=== PATIENT | male | born 1985 | race Caucasian/White ===

== ENCOUNTER 2016-08-16 19:27 | Emergency (ER) | payer MEDICAID, OTHER ==
[~2016-08-16] VITALS: Ht 175.3 cm; Wt 68.5 kg
[~2016-08-16 19:27] MED LIST: BENZ1TAB PO; CHLO50TA6 PO; CLON.5 PO; HALO10 PO; IBUP400T20 PO; QUET1TAB67 PO; SELE2.5%T TOP; TEGR100C CHEW; TRIPLE ABX
[2016-08-16 20:09] VITALS: BP 126/86; PULSE 100; RESP 2; RESP 20; TEMP 97.6; O2SAT 100
[2016-08-16] MEDS ORDERED: THORAZINE PO (20:23)
[2016-08-16] MEDS ORDERED: CARB100C CHEW (20:23)
[2016-08-16] MEDS ORDERED: QUET5TAB PO (20:23)
[2016-08-16] MEDS ORDERED: BENZ2TAB PO (20:23)
[2016-08-16] MEDS ORDERED: HALO10TA PO (20:23)
[2016-08-16] MEDS ORDERED: KETOC2%T TOPICAL (20:23)
[2016-08-16] MEDS ORDERED: [UNRECOGNIZED DRUG - CODE] TOPICAL (20:23)
--- NOTE | 2016-08-16 20:47 | PD ---
HPI Chief Complaint: Musculoskeletal Complaint Time Seen by Provider: 20:46 Travel History International Travel<30 days: No Contact w/Intl Traveler<30days: No Traveled to known affect area: No History of Present Illness HPI 31-year-old male presents to the emergency room with his caregiver with complaint of right foot pain. The patient is intellectually disabled and is unable to communicate, he keeps pointing to his right foot in saying "hurt." He also has history of seizure disorder. The caregiver says that he has had a bruise on the medial aspect of his foot for about a week and today at change of shift he refused to bear weight and walk on the foot. He has been walking normally earlier today and throughout the week. He had been complaining of pain throughout the week but is now refusing to walk on the foot. The caregiver or place of care is unaware of any injury. Denies any nausea, vomiting, fever, chills. They have not given any medications for pain. Allergies to honeybee and lactose intolerance. No other modifying factors or associated signs and symptoms. PFSH Past Medical History Asthma: No Autoimmune Disease: No Blood Disorders: No Anxiety: No Depression: No Cancer: No Cardiovascular Problems: No Chemotherapy: No COPD: No Developmental Delay: Yes Diabetes: No Diminished Hearing: No Endocrine: No Genitourinary: No Immune Disorder: No Musculoskeletal: Yes ([employer]GEN[employer] FEET) Neurologic: Yes (MENTAL RETARDATION) Psychiatric: Yes Respiratory: No Radiation Therapy: No Seizures: Yes (EPILEPSY) Sleep Apnea: No Thyroid Disease: No Past Surgical History AICD: No Joint Replacement: No Pacemaker: No Other Surgery: Yes Social History Alcohol Use: No Tobacco Use: No Substance Use: No Allergies-Medications (Allergen,Severity, Reaction): Coded Allergies: Honey Bee (Verified Allergy, Severe, 08/16/16) Lactose (Verified Allergy, Mild, 08/16/16) Reported Meds & Prescriptions Reported Meds & Active Scripts Active Folding Walker/5" Wheels (Device) 1 Mis Mis 1 Ea .ROUTE DIRECTED Reported Carbamazepine 100 Mg Chew 300 Mg CHEW BID Haloperidol 10 Mg Tab 10 Mg PO BID [Thorazine] 50 Mg PO BID Benztropine (Benztropine Mesylate) 2 Mg Tab 2 Mg PO BID Quetiapine (Quetiapine Fumarate) 50 Mg Tab 50 Mg PO BID Neutrogena T/Gel Topical ([place] Tar Extract) 0.5% Sham 1 Applic TOPICAL EVERY OTHER DAY Nizoral Topical Shampoo (Ketoconazole) 2% Sham 1 Applic TOPICAL EVERY OTHER DAY Apply to scalp Review of Systems Except as stated in HPI: all other systems reviewed are Neg Physical Exam Narrative GENERAL: Well-nourished, well-developed male patient, in no acute distress; intellectually disabled and unable to effectively communicate SKIN: Warm and dry. HEAD: Atraumatic. Normocephalic. EYES: Pupils equal and round. No scleral icterus. No injection or drainage. ENT: Mucosa pink and moist. Airway patent. NECK: Trachea midline. CARDIOVASCULAR: Regular rate. RESPIRATORY: No accessory muscle use. GASTROINTESTINAL: Flat. MUSCULOSKELETAL: Right ankle and foot without erythema or edema; no obvious deformity; there is a small stage IV bruise to the dorsal, medial aspect of the foot. Right lower extremity is supple and non-tense with 2+ pedal pulses and without erythema or edema. No obvious deformities. No clubbing. No cyanosis. No edema. NEUROLOGICAL: Awake and alert. Oriented 3. No obvious cranial nerve deficits. Motor grossly within normal limits. Normal speech. PSYCHIATRIC: Appropriate mood and affect; insight and judgment normal. Data Data Last Documented VS Vital Signs Date Time Temp Pulse Resp B/P Pulse Ox O2 Delivery O2 Flow Rate FiO2 08/16/16 20:09 97.6 100 20 126/86 100 Orders Ankle, Complete ([id number]) (08/16/16 20:47) Foot, Complete ([id number]) (08/16/16 20:47) Ibuprofen Liq (Motrin Liq) (08/16/16 21:00) [facility] Medical Decision Making Medical Screen Exam Complete: Yes Emergency Medical Condition: Yes Medical Record Reviewed: Yes Differential Diagnosis Fracture, dislocation, sprain Narrative Course 31-year-old male with intellectual disability and unable to communicate effectively presents with his caregiver with continued complaint of right foot pain. No known injury. He continues to point at his foot and say "hurt." The right lower extremity supple and nontender to with pupils and without erythema or edema. There are no obvious deformities. Ibuprofen administered in ER. Right ankle x-ray and right foot x-ray ordered. 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 No fracture or acute malalignment of the right foot. Johnson bandage and ankle stirrup splint placed to right ankle. Prescription for walker provider for home. The care center that he is in has a wheelchair for support. Instructed to use ibuprofen or Tylenol as needed for pain. Instructed to follow-up with primary care provider if patient continues to complain of pain greater than 10-14 days. Patient is medically cleared and stable for discharge. Discussed reasons to return to the emergency department. Instructed patient to follow up with primary care provider. Patient agrees with treatment plan. The patients vital signs are stable and the patient is stable for outpatient follow-up and treatment. Patient discharged home, stable and in no acute distress. Diagnosis Primary Impression: Right ankle pain Qualified Code: M25.571 - Right ankle pain, unspecified chronicity Additional Impression: Right foot pain Referrals: Primary Care Physician Patient Instructions: General Instructions Additional Instructions: Tylenol/ibuprofen every 6 hours as directed and as needed for pain Rest, ice, compress, and elevate extremity to decrease pain and inflammation Brace for support Walker for support Avoid aggravating activity; increase activity as tolerated Follow-up with primary care provider Return to the emergency department immediately with worsening symptoms Med/Other Pt SpecificInfo: Prescription(s) given Scripts Folding Walker/5" Wheels 1 Mis Mis #1 Ea .route As Directed Prov:Kylee Maria 08/16/16 Disposition: 01 DISCHARGE HOME Condition: Stable Kylee Maria Aug 16, 2016 20:46
[2016-08-16] MEDS ORDERED: IBUPROFEN SUSP 100 MG/5 ML 120 ML BOTTLE PO ONE (21:00)
--- NOTE | 2016-08-16 21:23 | RADHPO ---
EXAM DATE/TIME: 08/16/2016 21:04 [facility] COMPARISON: No previous studies available for comparison. INDICATIONS : Right foot and ankle pian, unable to ambulate MEDICAL HISTORY : Mental disabilities, club feet SURGICAL HISTORY : Right foot ENCOUNTER: Initial ACUITY: 1 day PAIN SCORE: Non-responsive. LOCATION: Right foot/ankle FINDINGS: Congenitally short and flat talus again noted and there is mild separation anteriorly of the tibiotal ar joint. There are mild/moderate degenerative changes of the ankle joint, subtalar and talonavicular joints, all slightly worse in the interim. No fracture or acute appearing malalignment seen. 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 No fracture or acute a ppearing malalignment. Pablo Gonsalves MD on August 16, 2016 at 21:20 Board Certified Radiologist. This report was verified electronically.
--- NOTE | 2016-08-16 21:25 | RADHPO ---
EXAM DATE/TIME: 08/16/2016 21:08 [facility] COMPARISON: ANKLE RIGHT COMPLETE ([id number]), August 16, 2016, 21:04. ANKLE RIGHT COMPLETE ([id number]), June, 16:20. INDICATIONS : Right foot and ankle pain, unable to ambulate MEDICAL HISTORY : Metal disabilities, club feet SURGICAL HISTORY : Right foot ENCOUNTER: Initial ACUITY: 1 day PAIN SCORE: Non-responsive. 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 Bones of the right midfoot and forefoot are intact and normally aligned. CONCLUSION: Congenital ankle/hindfoot abnormalities. No fracture or acute malalignment of the right foot. Pablo Gonsalves MD on August 16, 2016 at 21:22 Board Certified Radiologist. This report was verified electronically.
[2016-08-16] MEDS ORDERED: MISC-274 (21:35)
== END 2016-08-16 21:45 | disposition home or self-care (01) ==
LOC: PHEFT 19:27
DX: M25.571 Pain in right ankle and joints of right foot (principal); F79 Unspecified intellectual disabilities
CPT/HCPCS: 73610; 73630; 99283; L1906

== ENCOUNTER 2017-10-18 14:45 | Emergency (ER) | payer MEDICAID ==
[~2017-10-18 14:45] MED LIST changes: -BENZ1TAB PO; +BENZ2TAB PO; +CARB100C CHEW; -CHLO50TA6 PO; -CLON.5 PO; -HALO10 PO; +HALO10TA PO; -IBUP400T20 PO; +KETOC2%T TOPICAL; +MISC-274; -QUET1TAB67 PO; +QUET5TAB PO; -SELE2.5%T TOP; -TEGR100C CHEW; +THORAZINE PO; -TRIPLE ABX; +[UNRECOGNIZED DRUG - CODE] TOPICAL
[2017-10-18 14:48] VITALS: BP 149/84; PULSE 107; RESP 20; TEMP 98.3; O2SAT 98
--- NOTE | 2017-10-18 14:58 | PD ---
HPI Chief Complaint: Fall Time Seen by Provider: 14:55 Travel History International Travel<30 days: No Contact w/Intl Traveler<30days: No Traveled to known affect area: No History of Present Illness HPI This 32-year-old male is brought by paramedics. He resides at a care home. The worker at the home observed him choking on a peanut butter and jelly sandwich. She did the Heimlich maneuver and cleaned out his mouth. His breathing has improved. He tried to get away from her and while trying to get away he fell and hit the side of his head. She says he was momentarily stunned. He has a history of developmental delay and epilepsy. The worker is here now and says that he is at his baseline. PFSH Past Medical History Asthma: No Autoimmune Disease: No Blood Disorders: No Anxiety: No Depression: No Cancer: No Cardiovascular Problems: No Chemotherapy: No COPD: No Developmental Delay: Yes Diabetes: No Diminished Hearing: No Endocrine: No Genitourinary: No Immune Disorder: No Musculoskeletal: Yes ([employer] FEET) Neurologic: Yes (MENTAL RETARDATION) Psychiatric: Yes Respiratory: No Radiation Therapy: No Seizures: Yes (EPILEPSY) Sleep Apnea: No Thyroid Disease: No Past Surgical History AICD: No Joint Replacement: No Pacemaker: No Other Surgery: Yes Social History Alcohol Use: No Tobacco Use: No Substance Use: No Allergies-Medications (Allergen,Severity, Reaction): Coded Allergies: bee venom protein (honey bee) (Unverified Allergy, Severe, 10/18/17) lactose (Unverified Allergy, Mild, 10/18/17) Reported Meds & Prescriptions Reported Meds & Active Scripts Active Reported Clonazepam 0.5 Mg Tab 0.5 Mg PO HS Benztropine (Benztropine Mesylate) 0.5 Mg Tab 2 Mg PO BID Carbamazepine 100 Mg Chew 300 Mg CHEW BID Haloperidol 10 Mg Tab 10 Mg PO BID [Thorazine] 50 Mg PO BID Quetiapine (Quetiapine Fumarate) 50 Mg Tab 50 Mg PO BID Neutrogena T/Gel Topical ([place] Tar Extract) 0.5% Sham 1 Applic TOPICAL EVERY OTHER DAY Nizoral Topical Shampoo (Ketoconazole) 2% Sham 1 Applic TOPICAL EVERY OTHER DAY Apply to scalp Review of Systems ROS Limitations: Poor Historian Physical Exam Narrative GENERAL: Well-developed male SKIN: Focused skin assessment warm/dry. HEAD: Atraumatic. Normocephalic. There is ecchymosis lateral to the left eye. EYES: Pupils equal and round. No scleral icterus. No injection or drainage. ENT: No nasal bleeding or discharge. Mucous membranes pink and moist. NECK: Trachea midline. No JVD. CARDIOVASCULAR: Regular rate and rhythm. No murmur appreciated. RESPIRATORY: No accessory muscle use. Clear to auscultation. Breath sounds equal bilaterally. GASTROINTESTINAL: Abdomen soft, non-tender, nondistended. Hepatic and splenic margins not palpable. MUSCULOSKELETAL: No obvious deformities. No clubbing. No cyanosis. No edema. NEUROLOGICAL: Awake and alert. He does not follow commands. He appears to move all extremities. He has a splint on his left leg. Speech is limited PSYCHIATRIC: Data Data Last Documented VS Vital Signs Date Time Temp Pulse Resp B/P (MAP) Pulse Ox O2 Delivery O2 Flow Rate FiO2 10/18/17 14:48 98.3 107 20 149/84 (105) 98 Orders Orders Chest, Single Ap (10/18/17 14:55) Ct Brain W/O Iv Contrast(Rout) (10/18/17 14:55) [facility] Medical Decision Making Medical Screen Exam Complete: Yes Emergency Medical Condition: Yes Medical Record Reviewed: Yes Differential Diagnosis Differential includes choking episode, contusion head, subdural, skull fracture Narrative Course Clinically the patient appears stable and there is no evidence of airway compromise and his pharynx is unremarkable. CT scan of the head is negative for traumatic injury. Chest x-ray is negative Diagnosis Primary Impression: Contusion of head Additional Impression: Choking episode Disposition: 65 DISC TO [facility] Condition: Stable Ervin Ramon MD Oct 18, 2017 14:58
[2017-10-18] MEDS ORDERED: CLON0.5T PO (15:05)
[2017-10-18] MEDS ORDERED: BENZ0.5T PO (15:05)
--- NOTE | 2017-10-18 15:30 | RADRPT ---
EXAM DATE/TIME: 10/18/2017 15:05 [facility] COMPARISON: No previous studies available for comparison. INDICATIONS : Fell and hit head. RADIATION DOSE: 53.83 CTDIvol (mGy) MEDICAL HISTORY : None SURGICAL HISTORY : None. ENCOUNTER: Initial ACUITY: 1 day PAIN SCALE: 2/10 LOCATION: Left cranial TECHNIQUE: Multiple contiguous axial images were obtained of the head. Using automated exposure control and adj ustment of the mA and/or kV according to patient size, radiation dose was kept as low as reasonably a chievable to obtain optimal diagnostic quality images. DICOM format image data is available electro nically for review and comparison. FINDINGS: CEREBRUM: The ventricles are normal for age. No evidence of midline shift, mass lesion, hemorrhage or acute in farction. No extra-axial fluid collections are seen. POSTERIOR FOSSA: The cerebellum and brainstem are intact. The 4th ventricle is midline. The cerebellopontine angle i s unremarkable. EXTRACRANIAL: The visualized portion of the orbits is intact. SKULL: The calvaria is intact. No evidence of skull fracture. CONCLUSION: Normal examination for a patient of this age. Maximilian Seay MD on October 18, 2017 at 15:28 Board Certified Radiologist. This report was verified electronically.
--- NOTE | 2017-10-18 15:51 | RADRPT ---
EXAM DATE/TIME: 10/18/2017 15:29 [facility] COMPARISON: No previous studies available for comparison. INDICATIONS : Cough. MEDICAL HISTORY : Seizures. Metal disabilities. SURGICAL HISTORY : None. ENCOUNTER: Initial ACUITY: 1 day PAIN SCORE: Non-responsive. LOCATION: Bilateral chest FINDINGS: A single view of the chest demonstrates the lungs to be symmetrically aerated without evidence of mas s, infiltrate or effusion. The cardiomediastinal contours are unremarkable. Osseous structures are intact. CONCLUSION: Normal examination for a patient of this age. Maximilian Seay MD on October 18, 2017 at 15:50 Board Certified Radiologist. This report was verified electronically.
== END 2017-10-18 16:21 ==
LOC: PHED 14:45
DX: S00.93XA Contusion of unspecified part of head, initial encounter (principal); W19.XXXA Unspecified fall, initial encounter; R09.89 Other specified symptoms and signs involving the circulatory and respiratory systems; T17.928A Food in respiratory tract, part unspecified causing other injury, initial encounter; G40.909 Epilepsy, unspecified, not intractable, without status epilepticus; F79 Unspecified intellectual disabilities
CPT/HCPCS: 70450; 71045

== ENCOUNTER 2018-07-06 12:46 | Inpatient (IN) ==
[2018-07-06] MEDS ORDERED: Midazolam Inj 5 MG/ML 5 ML Vial IV.PUSH ONE (12:48)
[2018-07-06] MEDS ORDERED: Midazolam 100 MG/100 ML Inj 100 MG/100 ML BAG IV.CONT PRN (12:49)
[2018-07-06 13:06] LABS: Baso # (Auto) 0.1 th/mm3 (0.0-0.2); Baso % (Auto) 1.3 % (0.0-2.0); Eos # (Auto) 0.1 th/mm3 (0.0-0.4); Eos % (Auto) 0.9 % (0.0-4.0); Hemoglobin 13.6 gm/dL (13.0-17.0); Lymph # (Auto) 3.1 th/mm3 (1.0-4.8); Lymph % (Auto) 40.7 % (9.0-44.0); Mean Corpuscular HGB Conc 33.2 % (32.0-36.0); Mean Corpuscular Hemoglobin 30.8 pg (27.0-34.0); Mean Corpuscular Volume 92.8 fL (80.0-100.0); Mean Platelet Volume 7.2 fL (7.0-11.0); Mono # (Auto) 0.3 th/mm3 (0.0-0.9); Mono % (Auto) 4.2 % (0.0-8.0); Neut % (Auto) 52.9 % (16.0-70.0); Platelet Count 257 th/mm3 (150-450); Red Blood Count 4.43 mil/mm3 (4.50-5.90); Red Cell Distribution Width 12.6 % (11.6-17.2); White Blood Count 7.6 th/mm3 (4.0-11.0)
[2018-07-06 13:14] LABS: Chloride 107 meq/L (98-107); Potassium 3.7 meq/L (3.5-5.1); Sodium 142 meq/L (136-145)
[2018-07-06 13:17] LABS: Activated Partial Thrombo Time 24.3 sec (23.4-31.7); Calcium 7.7 mg/dL (8.5-10.1); INR 1.1 Ratio
--- NOTE | 2018-07-06 13:17 | XR ---
EXAM DATE: 07/06/2018 1:13 PM EST AGE/SEX: 32 years / Male INDICATIONS: Post intubation. CLINICAL DATA: This is the patient's initial encounter. Patient reports that signs and symptoms have been present for 1 day and indicates a pain score of Nonresponsive. MEDICAL/SURGICAL HISTORY: Non-responsive. Non-responsive. COMPARISON: [facility], CHEST SINGLE AP, 10/18/2017. . FINDINGS: The patient is intubated with the tip of ET tube 5 cm from the leonie in good position. The heart siz e is normal. The lungs are clear. CONCLUSION: ET tube in good position. Electronically signed by: Pablo Ramos MD 07/06/2018 1:15 PM EST
[2018-07-06 13:18] LABS: Albumin 3.4 g/dL (3.4-5.0); Anion Gap 11 meq/L (5-15); Blood Urea Nitrogen 14 mg/dL (7-18); Glucose,Random 125 mg/dL (74-106)
[2018-07-06 13:20] LABS: ABG Base Excess -1.9 mmol/L (-2-2); ABG PCO2 47 mmHg (38-42); ABG PO2 337 mmHg (61-120)
[2018-07-06 13:21] LABS: Alanine Aminotransferase 95 U/L (12-78); Aspartate Aminotransferase 99 U/L (15-37); Glomerular Filtration Rate Greater Than 89 mL/min (>89)
[2018-07-06 13:23] LABS: Total Protein 6.9 g/dL (6.4-8.2)
[2018-07-06 13:24] LABS: Alkaline Phosphatase 148 U/L (45-117)
[2018-07-06 13:25] LABS: Creatine Kinase 72 U/L (39-308)
--- NOTE | 2018-07-06 13:31 | ED ---
HPI General Chief Complaint: Cardiac Arrest/CPR Stated Complaint: airway obstruction /evac Time Seen by Provider: 07/06/18 12:48 Source: EMS Mode of arrival: EMS Limitations: altered mental status History of Present Illness HPI narrative: 32-year-old male was brought in by EMS after patient was found choking on food and became unresponsive. Patient resides at a residential. Patient was eating peanut butter and jelly sandwich this afternoon. Patient started choking on food. Helmet Hat Sweatband Puncher gave patient Heimlich maneuver. Patient became unresponsive. Chest compression was started at the scene. EMS was called. EMS response within minutes. Patient was found unresponsive with pulse. A large amount of food was found in the mouth. The foot was removed with Deshawn forceps and fingers. Patient was intubated and transported to the ED for evaluation. Upon arrival, patient unresponsive, breathing about 2 breaths/min, with pulses. Patient has history of developmental delay and seizure. Patient is on lorazepam, benztropine, carbamazepine, Haldol, Thorazine , Seroquel. MD complaint: Reports found unresponsive and stopped breathing Onset (ago): minute(s) Timing confirmed by: caregiver Place: other (long-term) Bystander CPR performed: Yes AED applied by bystander/applied computer science professor: No Shock advised: No Initial findings in the field: unresponsive, no respirations, good pulses and sinus rhythm Associated injuries: No Treatments prior to arrival: Reports intubation and chest compressions Related Data Allergies Allergy/AdvReac Type Severity Reaction Status Date / Time bee venom protein (honey bee) Allergy Severe Unverified 10/18/17 14:56 lactose Allergy Mild Unverified 10/18/17 14:56 Review of Systems ROS: all other systems reviewed are negative PMFSH History History Provided By: Social Services Counselor / EMT Social History Social History Recent Travel in [place] within the Last 8 Weeks: No Recent Out of Country Travel within the Last 8 Weeks: No Exam Narrative Exam Narrative: GENERAL: Well-nourished, well-developed patient. SKIN: Focused skin assessment warm/dry. HEAD: Normocephalic. EYES: No scleral icterus. No injection or drainage. Pupils 4 mm equal reactive. NECK: Supple, trachea midline. No JVD or lymphadenopathy. CARDIOVASCULAR: Regular rate and rhythm without murmurs, gallops, or rubs. RESPIRATORY: Breath sounds equal bilaterally on bagging. Patient is intubated. Patient has spontaneous respiration about 2/min. GASTROINTESTINAL: Abdomen soft, nondistended. MUSCULOSKELETAL: No cyanosis, or edema. BACK: without obvious deformity. No CVA tenderness. Neurologic exam: Patient is intubated. Course Initial Documented Vital Signs Pulse Rate 82 07/06/18 12:48 Respiratory Rate 16 07/06/18 12:48 Blood Pressure 158/101 H 07/06/18 12:48 Last Documented Vital Signs Pulse Rate 88 07/06/18 15:15 Respiratory Rate 16 07/06/18 14:32 Blood Pressure 122/83 07/06/18 15:15 Pulse Oximetry 97 07/06/18 14:32 Critical Care Time Critical Care Time: Yes Total Critical Care Time: 60 Attestation: Aggregate critical care time was 60 minutes. Time to perform other separately billable procedures was not included in the critical care time. My time did not include minutes spent treating any other patients simultaneously or on activities that did not directly contribute to the patient's treatment. The services I provided to this patient were to treat and/or prevent clinically significant deterioration that could result in: I provided critical care services requiring my management, as noted below: Chart data review, documentation time, medication orders and management, vital sign assessments/reviewing monitor data, ordering and reviewing lab tests, ordering and interpreting/reviewing x-rays and diagnostic studies, care of the patient and discussion of the patient with the admitting physicians. Medical Decision Making MDM Narrative Medical decision making narrative: 32-year-old male was choking on food and became unresponsive. Patient lives in a residential. Chest compressions started prior to EMS arrival. Patient was found unresponsive with pulses. Large amount of food was dislodged from the mouth. Patient was intubated prior to arrival. Patient was put on ventilator. Versed drip for sedation. Medical Screen Exam Complete: Yes Emergency Medical Condition: Yes Differential Diagnosis Differential Diagnosis: Differential diagnosis including respiratory failure, food aspiration, aspiration pneumonia, cardiac arrest. Lab Data Lab results reviewed: Yes I reviewed the patient's lab results. Result diagrams: 07/06/18 12:57 07/06/18 12:57 Lab Results 07/06/18 07/06/18 07/06/18 Range/Units 12:57 12:57 12:57 CBC w Diff Auto diff final WBC 7.6 (4.0-11.0) th/mm3 RBC 4.43 L (4.50-5.90) mil/mm3 Hgb 13.6 (13.0-17.0) gm/dL Hct 41.0 (39.0-51.0) % MCV 92.8 (80.0-100.0) fL MCH 30.8 (27.0-34.0) pg MCHC 33.2 (32.0-36.0) % RDW 12.6 (11.6-17.2) % Plt Count 257 (150-450) th/mm3 MPV 7.2 (7.0-11.0) fL Neut % (Auto) 52.9 (16.0-70.0) % Lymph % (Auto) 40.7 (9.0-44.0) % [place] % (Auto) 4.2 (0.0-8.0) % Eos % (Auto) 0.9 (0.0-4.0) % Baso % (Auto) 1.3 (0.0-2.0) % Neut # (Auto) 4.0 (1.8-7.7) th/mm3 Lymph # (Auto) 3.1 (1.0-4.8) th/mm3 [place] # (Auto) 0.3 (0.0-0.9) th/mm3 Eos # (Auto) 0.1 (0.0-0.4) th/mm3 Baso # (Auto) 0.1 (0.0-0.2) th/mm3 WBC Differential . Differential Comment . PT 11.0 (9.8-11.6) sec INR 1.1 Ratio APTT 24.3 (23.4-31.7) sec Puncture Site Patient Temperature O2 Saturation (90-100) % ABG pH (7.380-7.420) ABG pCO2 (38-42) mmHg ABG pO2 (61-120) mmHg ABG HCO3 (22-26) mmol/L ABG O2 Content (12.0-20.0) Vol % ABG Base Excess (-2-2) mmol/L ABG Methemoglobin (0-2) % Bud Test Hemoglobin (12.0-16.0) G/DL Carboxyhemoglobin (0-4) % O2 Delivery Device Vent Setting Inspired O2 % Critical Value Sodium (136-145) meq/L Potassium (3.5-5.1) meq/L Chloride (98-107) meq/L Carbon Dioxide (21.0-32.0) meq/L Anion Gap (5-15) meq/L BUN (7-18) mg/dL Creatinine (0.60-1.30) mg/dL Estimated GFR (>89) mL/min POC Glucose (68-110) mg/dl Random Glucose (74-106) mg/dL Calcium (8.5-10.1) mg/dL Total Bilirubin (0.2-1.0) mg/dL AST (15-37) U/L ALT (12-78) U/L Alkaline Phosphatase (45-117) U/L Total Creatine Kinase (39-308) U/L Troponin I (0.02-0.05) ng/mL Total Protein (6.4-8.2) g/dL Albumin (3.4-5.0) g/dL TSH 2.020 (0.358-3.740) uIU/mL Ur Collection Type Urine Color (Yellw/Straw) Urine Clarity (Clear) Urine pH (5.0-8.5) Ur Specific [place] (1.002-1.035) Urine Protein (Neg-Trace) mg/dL Urine Glucose (UA) (Negative) mg/dL Urine Ketones (Negative) mg/dL Urine Occult Blood (Negative) Urine Nitrate (Negative) Urine Bilirubin (Negative) Urine Urobilinogen (Less than 2) mg/dL Ur Leukocyte Esterase (Negative) Urine WBC (0-5) /hpf Urine Bacteria (None) /hpf Micro UA Comment Ur Microscopic Review Urine Culture Comments Carbamazepine (4.0-12.0) mcg/mL 07/06/18 07/06/18 07/06/18 Range/Units 12:57 12:57 13:12 CBC w Diff WBC (4.0-11.0) th/mm3 RBC (4.50-5.90) mil/mm3 Hgb (13.0-17.0) gm/dL Hct (39.0-51.0) % MCV (80.0-100.0) fL MCH (27.0-34.0) pg MCHC (32.0-36.0) % RDW (11.6-17.2) % Plt Count (150-450) th/mm3 MPV (7.0-11.0) fL Neut % (Auto) (16.0-70.0) % Lymph % (Auto) (9.0-44.0) % [place] % (Auto) (0.0-8.0) % Eos % (Auto) (0.0-4.0) % Baso % (Auto) (0.0-2.0) % Neut # (Auto) (1.8-7.7) th/mm3 Lymph # (Auto) (1.0-4.8) th/mm3 [place] # (Auto) (0.0-0.9) th/mm3 Eos # (Auto) (0.0-0.4) th/mm3 Baso # (Auto) (0.0-0.2) th/mm3 WBC Differential Differential Comment PT (9.8-11.6) sec INR Ratio APTT (23.4-31.7) sec Puncture Site Right radial Patient Temperature 98.6 O2 Saturation 97 (90-100) % ABG pH 7.32 L (7.380-7.420) ABG pCO2 47 H (38-42) mmHg ABG pO2 337 H (61-120) mmHg ABG HCO3 23 (22-26) mmol/L ABG O2 Content 19.2 (12.0-20.0) Vol % ABG Base Excess -1.9 (-2-2) mmol/L ABG Methemoglobin 1.6 (0-2) % Bud Test Present Hemoglobin 13.5 (12.0-16.0) G/DL Carboxyhemoglobin 1.1 (0-4) % O2 Delivery Device Ventilator Vent Setting 14/450/peep5 Inspired O2 100 % Critical Value No Sodium 142 (136-145) meq/L Potassium 3.7 (3.5-5.1) meq/L Chloride 107 (98-107) meq/L Carbon Dioxide 24.0 (21.0-32.0) meq/L Anion Gap 11 (5-15) meq/L BUN 14 (7-18) mg/dL Creatinine 0.91 (0.60-1.30) mg/dL Estimated GFR Greater than 89 (>89) mL/min POC Glucose (68-110) mg/dl Random Glucose 125 H (74-106) mg/dL Calcium 7.7 L (8.5-10.1) mg/dL Total Bilirubin 0.3 (0.2-1.0) mg/dL AST 99 H (15-37) U/L ALT 95 H (12-78) U/L Alkaline Phosphatase 148 H (45-117) U/L Total Creatine Kinase 72 (39-308) U/L Troponin I Less than 0.02 L (0.02-0.05) ng/mL Total Protein 6.9 (6.4-8.2) g/dL Albumin 3.4 (3.4-5.0) g/dL TSH (0.358-3.740) uIU/mL Ur Collection Type Urine Color (Yellw/Straw) Urine Clarity (Clear) Urine pH (5.0-8.5) Ur Specific [place] (1.002-1.035) Urine Protein (Neg-Trace) mg/dL Urine Glucose (UA) (Negative) mg/dL Urine Ketones (Negative) mg/dL Urine Occult Blood (Negative) Urine Nitrate (Negative) Urine Bilirubin (Negative) Urine Urobilinogen (Less than 2) mg/dL Ur Leukocyte Esterase (Negative) Urine WBC (0-5) /hpf Urine Bacteria (None) /hpf Micro UA Comment Ur Microscopic Review Urine Culture Comments Carbamazepine 7.9 (4.0-12.0) mcg/mL 07/06/18 07/06/18 Range/Units 13:22 14:25 CBC w Diff WBC (4.0-11.0) th/mm3 RBC (4.50-5.90) mil/mm3 Hgb (13.0-17.0) gm/dL Hct (39.0-51.0) % MCV (80.0-100.0) fL MCH (27.0-34.0) pg MCHC (32.0-36.0) % RDW (11.6-17.2) % Plt Count (150-450) th/mm3 MPV (7.0-11.0) fL Neut % (Auto) (16.0-70.0) % Lymph % (Auto) (9.0-44.0) % [place] % (Auto) (0.0-8.0) % Eos % (Auto) (0.0-4.0) % Baso % (Auto) (0.0-2.0) % Neut # (Auto) (1.8-7.7) th/mm3 Lymph # (Auto) (1.0-4.8) th/mm3 [place] # (Auto) (0.0-0.9) th/mm3 Eos # (Auto) (0.0-0.4) th/mm3 Baso # (Auto) (0.0-0.2) th/mm3 WBC Differential Differential Comment PT (9.8-11.6) sec INR Ratio APTT (23.4-31.7) sec Puncture Site Patient Temperature O2 Saturation (90-100) % ABG pH (7.380-7.420) ABG pCO2 (38-42) mmHg ABG pO2 (61-120) mmHg ABG HCO3 (22-26) mmol/L ABG O2 Content (12.0-20.0) Vol % ABG Base Excess (-2-2) mmol/L ABG Methemoglobin (0-2) % Bud Test Hemoglobin (12.0-16.0) G/DL Carboxyhemoglobin (0-4) % O2 Delivery Device Vent Setting Inspired O2 % Critical Value Sodium (136-145) meq/L Potassium (3.5-5.1) meq/L Chloride (98-107) meq/L Carbon Dioxide (21.0-32.0) meq/L Anion Gap (5-15) meq/L BUN (7-18) mg/dL Creatinine (0.60-1.30) mg/dL Estimated GFR (>89) mL/min POC Glucose 252 H (68-110) mg/dl Random Glucose (74-106) mg/dL Calcium (8.5-10.1) mg/dL Total Bilirubin (0.2-1.0) mg/dL AST (15-37) U/L ALT (12-78) U/L Alkaline Phosphatase (45-117) U/L Total Creatine Kinase (39-308) U/L Troponin I (0.02-0.05) ng/mL Total Protein (6.4-8.2) g/dL Albumin (3.4-5.0) g/dL TSH (0.358-3.740) uIU/mL Ur Collection Type Cath Urine Color Yellow (Yellw/Straw) Urine Clarity Slightly cloudy (Clear) Urine pH 6.0 (5.0-8.5) Ur Specific [place] 1.025 (1.002-1.035) Urine Protein Negative (Neg-Trace) mg/dL Urine Glucose (UA) Negative (Negative) mg/dL Urine Ketones Negative (Negative) mg/dL Urine Occult Blood Trace (Negative) Urine Nitrate Negative (Negative) Urine Bilirubin Negative (Negative) Urine Urobilinogen 0.2 (Less than 2) mg/dL Ur Leukocyte Esterase Negative (Negative) Urine WBC 0-5 (0-5) /hpf Urine Bacteria Many H (None) /hpf Micro UA Comment Cath-culture ind Ur Microscopic Review Microscopic reviewed Urine Culture Comments Cath-cult indicated Carbamazepine (4.0-12.0) mcg/mL Imaging Data Attestation: I personally reviewed and interpreted this imaging study as follows : Radiologist's impression: Chest X-Ray 07/06/18 12:50 CONCLUSION: ET tube in good position. Head CT 07/06/18 12:50 CONCLUSION: Negative noncontrast head CT. . Discharge Plan Discharge Disposition Patient Disposition: 30 Still Patient Discharge Details Diagnosis: Acute respiratory failure, Aspiration into airway Physicians Team ED Provider: Daniel Singh Primary Care Provider: Krishan Lane Status ED Status: With Doctor
--- NOTE | 2018-07-06 13:49 | CT ---
EXAM DATE: 07/06/2018 1:46 PM EST AGE/SEX: 32 years / Male INDICATIONS: Altered mental status. CLINICAL DATA: This is the patient's initial encounter. Patient reports that signs and symptoms have been present for 1 day and indicates a pain score of Nonresponsive. MEDICAL/SURGICAL HISTORY: None. None. RADIATION DOSE: 69.71 CTDI (mGy) COMPARISON: [facility], CT BRAIN W/O CONTRAST, 10/18/2017. . TECHNIQUE: CT of the head without contrast. Using automated exposure control and adjustment of the mA and/or kV according to patient size, radiation dose was kept as low as reasonably achievable to ob tain optimal diagnostic quality images. DICOM format image data is available electronically for revi ew and comparison. FINDINGS: Cerebrum: The ventricles are normal for age. No evidence of midline shift, mass lesion, hemorrhage or acute infarction. No extraaxial fluid collections are seen. Posterior Fossa: The cerebellum and brainstem are intact. The 4th ventricle is midline. The cerebe llopontine angle is unremarkable. Extracranial: The visualized portion of the orbits is intact. Skull: The calvaria is intact. No evidence of skull fracture. CONCLUSION: Negative noncontrast head CT. . Electronically signed by: Pablo Ramos MD 07/06/2018 1:48 PM EST
[2018-07-06] MEDS: Sod Chloride 0.9% Inj 1,000 ML IV.CONT SCH ×2 (14:25→22:21)
[2018-07-06 14:37] LABS: Bilirubin,Urine Negative (Negative); Clarity,Urine Slightly Cloudy (Clear); Color,Urine Yellow (Yellw/Straw); Glucose,Urine (UA) Negative (Negative); Leukocyte Esterase,Urine Negative (Negative); Nitrite,Urine Negative (Negative); Specific Gravity,Urine 1.025 (1.002-1.035); Urobilinogen,Urine 0.2 mg/dL (Less than 2)
[2018-07-06 14:46] LABS: Bacteria,Urine Many /hpf; WBC,Urine 0-5 /hpf (0-5)
[2018-07-06] MEDS ORDERED: Magnesium Oxide 400 MG Tablet PO PRN (16:19)
[2018-07-06] MEDS ORDERED: Bisacodyl 10 MG Supp RECTAL PRN (16:19)
[2018-07-06] MEDS ORDERED: Potassium Chlor 40 mEq Premix 40 MEQ/100 ML PIGGYBACK IV.SIG PRN (16:19)
[2018-07-06] MEDS ORDERED: Magnesium Sulfate Inj 2 GM in Sodium Chlor 0.9% Inj 96 ML IV.SIG PRN (16:19)
[2018-07-06] MEDS ORDERED: Potassium Phosphate 500 MG Soluble Tablet PO PRN (16:19)
[2018-07-06] MEDS ORDERED: Magnesium Sulfate Inj 4 GM in Sodium Chlor 0.9% Inj 92 ML IV.SIG PRN (16:19)
[2018-07-06] MEDS ORDERED: Sodium Phosphate Inj 30 MMOL in Sodium Chlor 0.9% Inj 250 ML IV.SIG PRN (16:19)
[2018-07-06] MEDS ORDERED: Potassium Chlor 20 mEq Premix 20 MEQ/100 ML PIGGYBACK IV.SIG PRN (16:19)
[2018-07-06] MEDS ORDERED: Propofol Inj 500 MG/50 ML Vial ONE (16:29)
--- NOTE | 2018-07-06 17:12 | XR ---
EXAM DATE: 07/06/2018 5:08 PM EST AGE/SEX: 32 years / Male INDICATIONS: Evaluate for NG tube placement. CLINICAL DATA: This is the patient's initial encounter. Patient reports that signs and symptoms have been present for 1 day and indicates a pain score of Nonresponsive. MEDICAL/SURGICAL HISTORY: Non-responsive. Non-responsive. COMPARISON: No prior exams available for comparison. FINDINGS: Examination of the abdomen demonstrates a normal bowel gas pattern. Moderate stool seen in the visua lized colon. No free air is identified. No organomegaly is evident. Osseous structures are intact. Nasogastric tube tip is at the gastric outlet. CONCLUSION: Nasogastric tube tip is at the distal stomach. Electronically signed by: Pablo Gonsalves MD 07/06/2018 5:10 PM EST
[2018-07-06 17:40] LABS: ABG Base Excess -0.6 mmol/L (-2-2); ABG PCO2 43 mmHg (38-42); ABG PO2 122 mmHg (61-120)
[2018-07-06] MEDS: Enoxaparin Inj 30 MG/0.3 ML Syringe SQ SCH ×2 (18:09→18:16)
--- NOTE | 2018-07-06 19:28 | P.HPCC ---
History of Present Illness Service: Critical care medicine Primary Care Physician: Krishan Lane MD Chief Complaint: Respiratory arrest History of Present Illness: This is a 32-year-old male delay living in a [facility]. The patient was eating a peanut butter and jelly sandwich and had a choking episode. A Heimlich maneuver was performed but was unsuccessful , the patient was noted to be slumped over/became limp. EMS was contacted of note the patient had a pulse per report throughout the entire episode, but CPR was initiated by 1 of the [facility] attendants. Upon EMS arrival which per report took approximately 10 minutes food bolus of the peanut butter and jelly sandwich was noted in the posterior pharynx which was removed by forceps and the patient was intubated at that time and transported to [facility] emergency department. The patient's medical history is significant for developmental delay, and a seizure disorder. Per report obtained from entry of [facility] medical records the patient is noted to be on benztropine, lorazepam carbamazepine, Haldol, Thorazine and Seroquel. Multiple attempts being made to obtain patient's medication list for reconciliation. Upon admission to the ICU , a family member was notified and at bedside and the patient appeared on sedation vacation to squeeze the family members hand up on request/command. - Diagnosis (1) Acute respiratory failure (2) Aspiration into airway (3) Seizure Inpatient Certification: I certify that the inpatient services were ordered in accordance with Medicare regulations governing the order. This includes certification that hospital inpatient services are reasonable and necessary and in the case of services not specified as inpatient-only under 42 CFR 419.22(n), that they are appropriately provided as inpatient services in accordance to with the 2-midnight benchmark under 43 CFR 412.3(e) Estimated Total Length of Stay (Days): 5 Plans for Post Hospital Care: detention Review of Systems All other systems reviewed negative except as stated in HPI, unobtainable due to endotracheal tube PMFSH - History History Provided By: Web Marketing Coordinator / EMT - Medical History Medical History: Medical History (Last Updated 07/06/18 @ 15:33 by Delia Moses RN) Epilepsy History of developmental delay - Tobacco History Second Hand Smoke Exposure: No Tobacco Use In Past 30 Days: No Smoking Status: Never smoker - Alcohol History How Often Do You Have a Drink Containing Alcohol: Never - Substance Use History Substance History: No History of Abuse - Travel History Recent Travel in the [place] Within the Last 8 Weeks: No Recent Travel Out of the Country Within the Last 8 Weeks: No - Immunization History Tetanus Immunization: Unsure Medications and Allergies Active Medications: Active Medications Al Hydroxide/Mg Hydroxide (Milk Of Esvin Liq) 30 ml PO Q12H PRN PRN Reason: Mild Constipation Albuterol (Duoneb Neb (Prn)) 1 ampul NEB Q2HR NEB PRN PRN Reason: WHEEZING Bisacodyl (Dulcolax Supp) 10 mg RECTAL DAILY PRN PRN Reason: SEVERE CONSITIPATION Chlorhexidine Gluconate (Peridex 0.12% Oral Kit) 15 ml OROPHARYNG BID@0800, 2000 VIK Chlorhexidine Gluconate (Chlorhexidine 2% Cloth) 3 pack TOPICAL DAILY@0400 PRN PRN Reason: Extra cloth needed Stop: 07/12/18 03:59 Enoxaparin Sodium (Lovenox Inj) 30 mg SQ Q24H VIK Last Admin: 07/06/18 18:16 Dose: 30 mg Famotidine (Pepcid) 20 mg PO BID VIK Famotidine (Pepcid Pf Inj) 20 mg IV.PUSH Q12HR VIK Sodium Chloride (Ns Inj) 1,000 mls @ 125 mls/hr IV.CONT .Q8H VIK Last Infusion: 07/06/18 16:40 Dose: Infused Magnesium Sulfate 4 gm/ Sodium (Chloride) 100 mls @ 50 mls/hr IV.SIG UNSCH PRN PRN Reason: For Magnesium 0.9 - 1.1 mg/dL Magnesium Sulfate 2 gm/ Sodium (Chloride) 100 mls @ 50 mls/hr IV.SIG UNSCH PRN PRN Reason: For Magnesium 1.2 - 1.6 mg/dL Potassium Chloride (Kcl 40 Meq Premix Inj) 40 meq in 100 mls @ 25 mls/hr IV.SIG Q2H PRN PRN Reason: For Potassium 2.8 - 3.2 mEq/L Potassium Chloride (Kcl 20 Meq Premix Inj) 20 meq in 100 mls @ 50 mls/hr IV.SIG Q2H PRN PRN Reason: For Potassium 3.3 - 3.5 mEq/L Sodium Phosphate 30 mmol/ (Sodium Chloride) 260 mls @ 42 mls/hr IV.SIG UNSCH PRN PRN Reason: For Phosphorus < 2.5 mg/dL Lactulose (Lactulose Liq) 30 ml PO DAILY PRN PRN Reason: SEVERE CONSITIPATION Lorazepam (Ativan Inj) 2 mg IV.PUSH Q2H PRN PRN Reason: SEIZURES Magnesium Oxide (Mag-Ox) 800 mg PO UNSCH PRN PRN Reason: For Magnesium 1.2 - 1.6 mg/dL Miscellaneous Medication () 1 each OROPHARYNG 0000,0400,1200,1600 VIK Ondansetron HCl (Zofran Inj) 4 mg IV.PUSH Q6H PRN PRN Reason: NAUSEA OR VOMITING Potassium Phosphate (K-Phos Original) 2,000 mg PO Q4H PRN PRN Reason: Phosphorus Less Than 2.5 mg/dL Senna/Docusate Sodium ([place]-Colace) 1 tab PO BID VIK Sennosides (Senokot) 17.2 mg PO Q12H PRN PRN Reason: Moderate Constipation Sodium Chloride (Ns Flush) 2 ml IV.FLUSH BID VIK Sodium Chloride (Ns Flush) 2 ml IV.FLUSH PRN PRN PRN Reason: FLUSH AFTER USING IV ACCESS Allergies Allergy/AdvReac Type Severity Reaction Status Date / Time bee venom protein (honey bee) Allergy Severe Unverified 10/18/17 14:56 lactose Allergy Mild Unverified 10/18/17 14:56 Home Medications Medication Instructions Recorded Confirmed Type Unable to Obtain Home Meds 07/06/18 07/06/18 History Results - Labs CBC & Chem 7: 07/06/18 12:57 07/06/18 12:57 Labs: Short CBC 07/06/18 Range/Units 12:57 WBC 7.6 (4.0-11.0) th/mm3 Hgb 13.6 (13.0-17.0) gm/dL Hct 41.0 (39.0-51.0) % Plt Count 257 (150-450) th/mm3 BMP 07/06/18 12:57 Sodium 142 Potassium 3.7 Chloride 107 Carbon Dioxide 24.0 BUN 14 Creatinine 0.91 Calcium 7.7 L Cardiac Enzymes 07/06/18 Range/Units 12:57 Total Creatine Kinase 72 (39-308) U/L Troponin I Less than 0.02 L (0.02-0.05) ng/mL Liver Function 07/06/18 Range/Units 12:57 Total Bilirubin 0.3 (0.2-1.0) mg/dL AST 99 H (15-37) U/L ALT 95 H (12-78) U/L Alkaline Phosphatase 148 H (45-117) U/L Albumin 3.4 (3.4-5.0) g/dL Urine 07/06/18 Range/Units 14:25 Urine Color Yellow (Yellw/Straw) Urine Clarity Slightly cloudy (Clear) Urine pH 6.0 (5.0-8.5) Ur Specific [place] 1.025 (1.002-1.035) Urine Protein Negative (Neg-Trace) mg/dL Urine Glucose (UA) Negative (Negative) mg/dL - Imaging Impressions Chest X-Ray 07/06/18 12:50 CONCLUSION: ET tube in good position. Head CT 07/06/18 12:50 CONCLUSION: Negative noncontrast head CT. . Abdomen X-Ray 07/06/18 16:47 CONCLUSION: Nasogastric tube tip is at the distal stomach. Exam Vital signs: Vital Signs 07/06/18 12:48 07/06/18 12:59 07/06/18 13:05 Temperature Pulse Rate 82 Respiratory Rate 16 14 Blood Pressure 158/101 H Pulse Oximetry 100 100 07/06/18 13:15 07/06/18 13:25 07/06/18 13:29 Temperature Pulse Rate 91 H Respiratory Rate 16 Blood Pressure 160/93 H 153/99 H 153/89 H Pulse Oximetry 100 07/06/18 13:47 07/06/18 13:49 07/06/18 13:50 Temperature Pulse Rate 81 82 Respiratory Rate Blood Pressure 141/85 H 141/85 H Pulse Oximetry 96 07/06/18 13:55 07/06/18 14:00 07/06/18 14:25 Temperature Pulse Rate 84 84 84 Respiratory Rate Blood Pressure 135/82 135/82 146/81 H Pulse Oximetry 99 94 L 07/06/18 14:30 07/06/18 14:32 07/06/18 14:55 Temperature Pulse Rate 82 82 84 Respiratory Rate 16 Blood Pressure 139/69 132/80 Pulse Oximetry 96 97 93 L 07/06/18 15:15 07/06/18 15:25 07/06/18 15:30 Temperature Pulse Rate 86 86 86 Respiratory Rate Blood Pressure 122/83 133/70 119/78 Pulse Oximetry 97 98 99 07/06/18 15:55 07/06/18 16:00 07/06/18 16:41 Temperature 98.3 F Pulse Rate 88 90 88 Respiratory Rate 20 Blood Pressure 120/72 120/70 Pulse Oximetry 97 97 07/06/18 16:53 07/06/18 16:58 07/06/18 17:00 Temperature Pulse Rate 96 H 98 H Respiratory Rate 46 H 25 H Blood Pressure 136/61 136/85 124/79 Pulse Oximetry 100 97 100 07/06/18 17:05 07/06/18 17:10 07/06/18 17:13 Temperature Pulse Rate 98 H 98 H Respiratory Rate 27 H 28 H 17 Blood Pressure 115/84 136/71 Pulse Oximetry 99 98 99 07/06/18 17:20 07/06/18 17:25 07/06/18 17:35 Temperature Pulse Rate 106 H 104 H 110 H Respiratory Rate 41 H 19 20 Blood Pressure 155/80 H 136/69 124/74 Pulse Oximetry 100 07/06/18 17:40 07/06/18 17:45 07/06/18 17:50 Temperature Pulse Rate 98 H 116 H 98 H Respiratory Rate 17 16 15 Blood Pressure 115/77 119/78 123/79 Pulse Oximetry 100 100 100 07/06/18 17:55 07/06/18 18:00 07/06/18 18:14 Temperature Pulse Rate 114 H 98 H 96 H Respiratory Rate 14 14 13 Blood Pressure 120/78 115/81 Pulse Oximetry 99 99 99 07/06/18 18:30 07/06/18 18:34 07/06/18 18:49 Temperature Pulse Rate 96 H 96 H 98 H Respiratory Rate 34 H 19 16 Blood Pressure 122/73 133/82 Pulse Oximetry 100 97 99 Intake & Output 07/06/18 07/06/18 07/07/18 06:59 18:59 06:59 Intake Total 1025 / 1025 Output Total 600 / 600 Balance 425 / 425 Weight 70.5 kg Intake: IV 1025 / 1025 Versed Inj 100 mg In 100 ml @ 2 25 / 25 MG/HR 2 mls/hr IV.CONT TITRATE PRN Rx#:[id number] NS Inj 1,000 ML @ 125 mls/hr IV 1000 / 1000 .CONT .Q8H [facility] Rx#:[id number] Output: Urine 600 / 600 Other: Date of Last Bowel Movement 07/06/18 - Constitutional no acute distress - Routine HEENT Exam Head: Present: normocephalic Eye: Present: PERRL, conjunctivae pink ENT: Present: mucous membranes moist, dentition normal, nares patent, external ear normal - Routine Cardiovascular Exam Present: RRR, S1, S2 - Routine Abdominal Exam Present: soft, normoactive bowel sounds - Routine Extremities Exam Present: pulses intact (Per report patient nonambulatory) - Routine Skin Exam Present: intact Caprini VTE Risk Assessment Caprini VTE Risk Assessment: No/Low Risk (score <= 1) Caprini Risk Assessment Model: Point Value = 1 Point Value = 2 Point Value = 3 Point Value = 5 Age 41-60 Minor surgery BMI > 25 kg/m2 Swollen legs Varicose veins or History of unexplained or recurrent spontaneous Oral contraceptives or hormone replacement Sepsis (< 1 month) Serious lung disease, including pneumonia (< 1 month) Abnormal pulmonary function Acute myocardial infarction Congestive heart failure (< 1 month) History of inflammatory bowel disease Medical patient at bed rest Age 61-74 Arthroscopic surgery Major open surgery (> 45 min) Laparoscopic surgery (> 45 min) Malignancy Confined to bed (> 72 hours) Immobilizing plaster cast Central venous access Age >= 75 History of VTE Family history of VTE Factor V Leiden Prothrombin [id number] Lupus anticoagulant Anticardiolipin antibodies Elevated serum homocysteine Heparin-induced thrombocytopenia Other congenital or acquired thrombophilia Stroke (< 1 month) Elective arthroplasty Hip, pelvis, or leg fracture Acute spinal cord injury (< 1 month) Prophylaxis Regimen: Total Risk Factor Score Risk Level Prophylaxis Regimen 0-1 Low Early ambulation 2 Moderate Order ONE of the following: *Sequential Compression Device (SCD) *Heparin 5000 units SQ BID 3-4 Higher Order ONE of the following medications: *Heparin 5000 units SQ TID *Enoxaparin/Lovenox 40 mg SQ daily (WT < 150 kg, CrCl > 30 mL/min) *Enoxaparin/Lovenox 30 mg SQ daily (WT < 150 kg, CrCl > 10-29 mL/min) *Enoxaparin/Lovenox 30 mg SQ BID (WT < 150 kg, CrCl > 30 mL/min) AND/OR *Sequential Compression Device (SCD) 5 or more Highest Order ONE of the following medications: *Heparin 5000 units SQ TID (Preferred with Epidurals) *Enoxaparin/Lovenox 40 mg SQ daily (WT < 150 kg, CrCl > 30 mL/min) *Enoxaparin/Lovenox 30 mg SQ daily (WT < 150 kg, CrCl > 10-29 mL/min) *Enoxaparin/Lovenox 30 mg SQ BID (WT < 150 kg, CrCl > 30 mL/min) AND *Sequential Compression Device (SCD) Assessment and Plan - Problem List (1) Acute respiratory failure Code(s): J96.00 - Acute respiratory failure, unspecified whether with hypoxia or hypercapnia Status: Acute (2) Aspiration into airway Code(s): T17.908A - Unspecified foreign body in respiratory tract, part unspecified causing other injury, initial encounter Status: Acute (3) Seizure Code(s): R56.9 - Unspecified convulsions Status: Acute - Assessment and Plan Plan: This is a 35-year-old male who had an unfortunate event of choking estimated time for EMS arrival and removal of food bolus and intubation and maintenance of airway approximately 10 minutes. Concern for anoxic injury. Plan by systems: Neurologic: Developmental delay Seizure disorder Possible anoxic injury Neuro checks per ICU protocol Provide sedation vacation Utilize propofol infusion to maintain ventilator synchrony Obtain CT of the brain in a.m. Obtain EEG in a.m. Follow-up Tegretol level Seizure precautions Discontinue Versed in an attempt to obtain evaluation of neurological status at this time. Obtained from [facility] accurate medication list Consult neurology Respiratory: Hypoxic respiratory arrest Intubated currently ABGs on 50% 7.3 7/43/122/24/-0.6 Ventilator bundle Wean FiO2 to maintain O2 saturation greater than 92% ABGs and chest x-rays when clinically indicated Duo nebs every 4 hours as needed Cardiovascular: Sinus tachycardia Hemodynamically stable normotensive Initiate very vasopressors if clinically indicated Renal: Insert Weber -- Strict I/Os FEN/GI: Monitor BMP Maintain n.p.o. status for now Zofran for nausea Heme/ID: Follow-up sputum culture Initiate Levaquin, vancomycin Endocrine: Glucose monitoring per ICU protocol -- SSI Prophylaxis: GI Prophylaxis Famotidine DVT Prophylaxis -- SCDs Lovenox Lines: Peripheral IVs providing adequate access Dispo: My billing statement This patient remains critically ill with one or more organ systems which are or may become a threat to life. I have spent in excess of 60 minutes discontinuously in the care and management of this patient. This time is exclusive of procedures, and includes, but is not limited to, evaluation of the patient, review of the medical record, discussions with family, consultants, nursing staff, or respiratory therapy, and documentation in the medical record. Code Status: Full Discussed Condition With: COMMISSIONING SPECIALIST at bedside. No family at bedside at this time. (1) Acute respiratory failure Qualifiers: Respiratory failure complication: hypoxia Qualified Code(s): J96.01 - Acute respiratory failure with hypoxia (2) Aspiration into airway Qualifiers: Encounter type: initial encounter Qualified Code(s): T17.908A - Unspecified foreign body in respiratory tract, part unspecified causing other injury, initial encounter
[2018-07-06] MEDS ORDERED: Dextrose 50% in Water 50 ML Vial IV.PUSH PRN (19:36)
[2018-07-06] MEDS: Propofol 1000 mg/100 ml Inj 1,000 MG/100 ML BOTTLE IV.CONT PRN (20:00)
[2018-07-06] MEDS: Vancomycin Inj 1,000 MG in Sodium Chlor 0.9% Inj 250 ML IV.SIG SCH (20:00)
[2018-07-06] MEDS: Famotidine 20 MG Tablet PO SCH (20:00)
[2018-07-06] MEDS: Senna/Docusate Sodium 8.6/50 MG Tablet PO SCH (20:00)
[2018-07-06] MEDS: Chlorhexidine 0.12% Oral Kit 15 ML UDC OROPHARYNG SCH (20:01)
[2018-07-06] MEDS: Levofloxacin 250 mg Premix Inj 250 MG/50 ML PIGGYBACK IV.SIG SCH (22:20)
[2018-07-06] MEDS: Famotidine PF Inj 20 MG/2 ML Vial IV.PUSH SCH (22:21)
[2018-07-07] MEDS: Propofol 1000 mg/100 ml Inj 1,000 MG/100 ML BOTTLE IV.CONT PRN ×2 (01:08→06:02)
[2018-07-07] MEDS ORDERED: Chlorhexidine Gluconate 2% 1 Pack (2 Cloths) TOPICAL SCH ×2 (04:00)
[2018-07-07] MEDS ORDERED: Chlorhexidine Gluconate 2% 1 Pack (2 Cloths) TOPICAL PRN ×2 (04:00)
--- NOTE | 2018-07-07 04:28 | XR ---
EXAM DATE: 07/07/2018 3:59 AM EST AGE/SEX: 32 years / Male INDICATIONS: Shortness of breath, possible pulmonary disease. CLINICAL DATA: This is the patient's subsequent encounter. Patient reports that signs and symptoms h ave been present for 2 days and indicates a pain score of Nonresponsive. MEDICAL/SURGICAL HISTORY: Non-responsive. Non-responsive. COMPARISON: [facility], CHEST 1V SINGLE AP, 07/06/2018. . FINDINGS: Endotracheal tube in good position. NG enters stomach. Left perihilar airspace disease and left basil ar airspace disease have developed. Right lung remains relatively clear. CONCLUSION: Developing airspace consolidation on the left. Primary differential diagnosis is pneumonia. Electronically signed by: Rodrigo Blanton MD 07/07/2018 4:27 AM EST
[2018-07-07 05:55] LABS: Baso # (Auto) 0.6 th/mm3 (0.0-0.2); Baso % (Auto) 4.6 % (0.0-2.0); Hematocrit 37.3 % (39.0-51.0); Hemoglobin 12.8 gm/dL (13.0-17.0); Lymph # (Auto) 0.9 th/mm3 (1.0-4.8); Lymph % (Auto) 6.7 % (9.0-44.0); Mean Corpuscular HGB Conc 34.2 % (32.0-36.0); Mean Corpuscular Hemoglobin 31.8 pg (27.0-34.0); Mean Corpuscular Volume 92.8 fL (80.0-100.0); Mean Platelet Volume 7.4 fL (7.0-11.0); Mono # (Auto) 0.6 th/mm3 (0.0-0.9); Mono % (Auto) 4.8 % (0.0-8.0); Neut # (Auto) 11.2 th/mm3 (1.8-7.7); Neut % (Auto) 83.9 % (16.0-70.0); Platelet Count 230 th/mm3 (150-450); Red Blood Count 4.02 mil/mm3 (4.50-5.90); Red Cell Distribution Width 12.6 % (11.6-17.2); White Blood Count 13.3 th/mm3 (4.0-11.0)
[2018-07-07] MEDS: Oral Hygiene Kit OROPHARYNG SCH ×3 (06:02→16:21)
[2018-07-07] MEDS: Sod Chloride 0.9% Inj 1,000 ML IV.CONT SCH ×3 (06:03→22:17)
[2018-07-07 06:04] LABS: Chloride 110 meq/L (98-107); Potassium 3.6 meq/L (3.5-5.1); Sodium 142 meq/L (136-145)
[2018-07-07 06:07] LABS: INR 1.1 Ratio; Prothrombin Time 10.9 sec (9.8-11.6)
[2018-07-07 06:10] LABS: Albumin 3.2 g/dL (3.4-5.0); Anion Gap 8 meq/L (5-15); Blood Urea Nitrogen 8 mg/dL (7-18); Calcium 7.5 mg/dL (8.5-10.1); Carbon Dioxide 24.1 meq/L (21.0-32.0); Glucose,Random 113 mg/dL (74-106); Magnesium 1.8 mg/dL (1.5-2.5)
[2018-07-07 06:13] LABS: Alanine Aminotransferase 75 U/L (12-78); Aspartate Aminotransferase 59 U/L (15-37); Glomerular Filtration Rate Greater Than 89 mL/min (>89); Phosphorus 2.7 mg/dL (2.5-4.9)
[2018-07-07 06:15] LABS: Total Protein 6.4 g/dL (6.4-8.2)
[2018-07-07 06:16] LABS: Alkaline Phosphatase 123 U/L (45-117)
[2018-07-07] MEDS ORDERED: Dexmedetomidine Inj 200 MCG in Sodium Chlor 0.9% Inj 48 ML IV.CONT PRN (06:41)
[2018-07-07] MEDS: Haloperidol 5 MG Tablet PO SCH ×3 (07:36→21:01)
[2018-07-07] MEDS: chlordiazePOXIDE 25 MG Capsule PO SCH ×2 (08:36→21:00)
[2018-07-07] MEDS: carBAMazepine 200 MG Tablet PO SCH ×3 (08:36→21:01)
[2018-07-07] MEDS: Famotidine 20 MG Tablet PO SCH ×2 (08:36→22:18)
[2018-07-07] MEDS: QUEtiapine 25 MG Tablet PO SCH ×2 (08:36→21:01)
[2018-07-07] MEDS: Senna/Docusate Sodium 8.6/50 MG Tablet PO SCH ×2 (08:36→21:00)
[2018-07-07] MEDS: Chlorhexidine 0.12% Oral Kit 15 ML UDC OROPHARYNG SCH ×2 (08:37→21:28)
[2018-07-07] MEDS: Famotidine PF Inj 20 MG/2 ML Vial IV.PUSH SCH ×2 (08:37→21:00)
[2018-07-07] MEDS ORDERED: Benztropine 2 MG Tablet PO SCH (09:00)
[2018-07-07] MEDS ORDERED: ChlorproMAZINE 50 MG Tablet PO SCH (09:00)
--- NOTE | 2018-07-07 09:18 | P.PNCC ---
Subjective Subjective Remarks/Hospital Course: 07/07-Propofol infusion placed on hold for assessment of neurological status and to obtain EEG. Patient became excessively agitated off sedation, infusion resumed. Home medications obtained from intermediate and resumed. Objective Vital Signs / I&O: Vital Signs 07/06/18 12:48 07/06/18 12:59 07/06/18 13:05 Temperature Pulse Rate 82 Respiratory Rate 16 14 Blood Pressure 158/101 H Pulse Oximetry 100 100 07/06/18 13:15 07/06/18 13:25 07/06/18 13:29 Temperature Pulse Rate 91 H Respiratory Rate 16 Blood Pressure 160/93 H 153/99 H 153/89 H Pulse Oximetry 100 07/06/18 13:47 07/06/18 13:49 07/06/18 13:50 Temperature Pulse Rate 81 82 Respiratory Rate Blood Pressure 141/85 H 141/85 H Pulse Oximetry 96 07/06/18 13:55 07/06/18 14:00 07/06/18 14:25 Temperature Pulse Rate 84 84 84 Respiratory Rate Blood Pressure 135/82 135/82 146/81 H Pulse Oximetry 99 94 L 07/06/18 14:30 07/06/18 14:32 07/06/18 14:55 Temperature Pulse Rate 82 82 84 Respiratory Rate 16 Blood Pressure 139/69 132/80 Pulse Oximetry 96 97 93 L 07/06/18 15:15 07/06/18 15:25 07/06/18 15:30 Temperature Pulse Rate 86 86 86 Respiratory Rate Blood Pressure 122/83 133/70 119/78 Pulse Oximetry 97 98 99 07/06/18 15:55 07/06/18 16:00 07/06/18 16:41 Temperature 98.3 F Pulse Rate 88 90 88 Respiratory Rate 20 Blood Pressure 120/72 120/70 Pulse Oximetry 97 97 07/06/18 16:53 07/06/18 16:58 07/06/18 17:00 Temperature Pulse Rate 96 H 98 H Respiratory Rate 46 H 25 H Blood Pressure 136/61 136/85 124/79 Pulse Oximetry 100 97 100 07/06/18 17:05 07/06/18 17:10 07/06/18 17:13 Temperature Pulse Rate 98 H 98 H Respiratory Rate 27 H 28 H 17 Blood Pressure 115/84 136/71 Pulse Oximetry 99 98 99 07/06/18 17:20 11/22/18 17:25 07/06/18 17:35 Temperature Pulse Rate 106 H 104 H 110 H Respiratory Rate 41 H 19 20 Blood Pressure 155/80 H 136/69 124/74 Pulse Oximetry 100 07/06/18 17:40 07/06/18 17:45 07/06/18 17:50 Temperature Pulse Rate 98 H 116 H 98 H Respiratory Rate 17 16 15 Blood Pressure 115/77 119/78 123/79 Pulse Oximetry 100 100 100 07/06/18 17:55 07/06/18 18:00 07/06/18 18:14 Temperature Pulse Rate 114 H 98 H 96 H Respiratory Rate 14 14 13 Blood Pressure 120/78 115/81 Pulse Oximetry 99 99 99 07/06/18 18:30 07/06/18 18:34 07/06/18 18:49 Temperature Pulse Rate 96 H 96 H 98 H Respiratory Rate 34 H 19 16 Blood Pressure 122/73 133/82 Pulse Oximetry 100 97 99 07/06/18 19:04 07/06/18 19:08 07/06/18 19:17 Temperature Pulse Rate 94 H 94 H Respiratory Rate 14 12 19 Blood Pressure 112/72 128/88 Pulse Oximetry 99 99 100 07/06/18 19:30 07/06/18 19:45 07/06/18 20:00 Temperature 99.3 F Pulse Rate 94 H 94 H 100 H Respiratory Rate 29 H 25 H 14 Blood Pressure 133/85 119/72 111/73 Pulse Oximetry 99 99 100 07/06/18 20:15 07/06/18 20:30 07/06/18 20:45 Temperature Pulse Rate 88 88 88 Respiratory Rate 12 24 22 Blood Pressure 119/69 129/72 114/72 Pulse Oximetry 100 100 100 07/06/18 21:00 07/06/18 21:15 07/06/18 21:30 Temperature Pulse Rate 92 H 90 86 Respiratory Rate 23 20 25 H Blood Pressure 124/74 124/75 118/70 Pulse Oximetry 100 99 100 07/06/18 22:00 07/06/18 22:30 07/06/18 23:00 Temperature Pulse Rate 88 86 88 Respiratory Rate 24 25 H 24 Blood Pressure 119/71 109/76 119/66 Pulse Oximetry 99 99 99 07/06/18 23:30 07/06/18 23:38 07/07/18 00:00 Temperature 100.2 F H Pulse Rate 88 86 Respiratory Rate 18 12 15 Blood Pressure 135/77 117/69 Pulse Oximetry 99 99 98 07/07/18 00:30 07/07/18 01:00 07/07/18 01:30 Temperature Pulse Rate 88 88 88 Respiratory Rate 21 16 13 Blood Pressure 122/75 133/76 118/67 Pulse Oximetry 98 98 99 07/07/18 02:00 07/07/18 02:30 07/07/18 03:00 Temperature Pulse Rate 92 H 90 92 H Respiratory Rate 13 13 23 Blood Pressure 121/71 123/70 123/80 Pulse Oximetry 100 100 100 07/07/18 03:30 07/07/18 03:34 07/07/18 04:00 Temperature 100 F H Pulse Rate 88 88 Respiratory Rate 12 12 13 Blood Pressure 126/70 123/73 Pulse Oximetry 100 100 100 07/07/18 04:30 07/07/18 05:00 07/07/18 05:30 Temperature Pulse Rate 90 88 90 Respiratory Rate 14 13 23 Blood Pressure 135/71 120/73 131/80 Pulse Oximetry 100 100 100 07/07/18 06:00 07/07/18 06:58 Temperature Pulse Rate 86 Respiratory Rate 12 14 Blood Pressure 119/71 Pulse Oximetry 98 98 Intake & Output 07/06/18 07/07/18 07/07/18 18:59 06:59 18:59 Intake Total 1025 / 1025 1500 / 1500 Output Total 600 / 600 2200 / 2200 Balance 425 / 425 -700 / -700 Weight 70.5 kg 65.8 kg Intake: IV 1025 / 1025 1500 / 1500 Versed Inj 100 mg In 100 ml @ 2 25 / 25 MG/HR 2 mls/hr IV.CONT TITRATE PRN Rx#:[id number] Diprivan 1000 mg/100 ml Inj 1, 200 / 200 000 mg In 100 ml @ 5 MCG/KG/MIN 1.974 mls/hr IV.CONT TITRATE PRN Rx#:[id number] NS Inj 1,000 ML @ 125 mls/hr IV 1000 / 1000 1000 / 1000 .CONT .Q8H [facility]K Rx#:[id number] Levaquin 250 mg Premix Inj 250 50 / 50 mg In 50 ml @ 50 mls/hr IV.SIG Q24H [facility] Rx#:[id number] Vancomycin Inj 1,000 MG In NS 250 / 250 Inj 250 ML @ 250 mls/hr IV.SIG Q24H [facility] Rx#:[id number] Oral 0 / 0 Output: Urine 600 / 600 2200 / 2200 Gastric Drainage 0 / 0 Left Nare Nasogastric Tube 0 / 0 Other: Date of Last Bowel Movement 07/06/18 07/06/18 Weight On Admission 65.8 kg Result Diagrams: 07/07/18 05:44 07/07/18 05:44 Other Results: Laboratory Results CBC w Diff Auto diff final 07/07/18 05:44 WBC 13.3 th/mm3 (4.0-11.0) H D 07/07/18 05:44 RBC 4.02 mil/mm3 (4.50-5.90) L 07/07/18 05:44 Hgb 12.8 gm/dL (13.0-17.0) L 07/07/18 05:44 Hct 37.3 % (39.0-51.0) L 07/07/18 05:44 MCV 92.8 fL (80.0-100.0) 07/07/18 05:44 MCH 31.8 pg (27.0-34.0) 07/07/18 05:44 MCHC 34.2 % (32.0-36.0) 07/07/18 05:44 RDW 12.6 % (11.6-17.2) 07/07/18 05:44 Plt Count 230 th/mm3 (150-450) 07/07/18 05:44 MPV 7.4 fL (7.0-11.0) 07/07/18 05:44 Neut % (Auto) 83.9 % (16.0-70.0) H 07/07/18 05:44 Lymph % (Auto) 6.7 % (9.0-44.0) L 07/07/18 05:44 [place] % (Auto) 4.8 % (0.0-8.0) 07/07/18 05:44 Eos % (Auto) 0.0 % (0.0-4.0) 07/07/18 05:44 Baso % (Auto) 4.6 % (0.0-2.0) H 07/07/18 05:44 Neut # (Auto) 11.2 th/mm3 (1.8-7.7) H 07/07/18 05:44 Lymph # (Auto) 0.9 th/mm3 (1.0-4.8) L 07/07/18 05:44 [place] # (Auto) 0.6 th/mm3 (0.0-0.9) 07/07/18 05:44 Eos # (Auto) 0.0 th/mm3 (0.0-0.4) 07/07/18 05:44 Baso # (Auto) 0.6 th/mm3 (0.0-0.2) H 07/07/18 05:44 WBC Differential . 07/07/18 05:44 Differential Comment . 07/07/18 05:44 PT 10.9 sec (9.8-11.6) 07/07/18 05:44 INR 1.1 Ratio 07/07/18 05:44 APTT 24.3 sec (23.4-31.7) 07/06/18 12:57 Puncture Site Right radial 07/06/18 17:33 Patient Temperature 98.6 07/06/18 17:33 O2 Saturation 97 % (90-100) 07/06/18 17:33 ABG pH 7.37 (7.380-7.420) L 07/06/18 17:33 ABG pCO2 43 mmHg (38-42) H 07/06/18 17:33 ABG pO2 122 mmHg (61-120) H 07/06/18 17:33 ABG HCO3 24 mmol/L (22-26) 07/06/18 17:33 ABG O2 Content 17.6 Vol % (12.0-20.0) 07/06/18 17:33 ABG Base Excess -0.6 mmol/L (-2-2) 07/06/18 17:33 ABG Methemoglobin 0.9 % (0-2) 07/06/18 17:33 Bud Test Present 07/06/18 17:33 Hemoglobin 12.8 G/DL (12.0-16.0) 07/06/18 17:33 Carboxyhemoglobin 0.9 % (0-4) 07/06/18 17:33 O2 Delivery Device Ventilator 07/06/18 17:33 Vent Setting [id number]/.45/1s/15/ 07/06/18 17:33 Inspired O2 50 % 07/06/18 17:33 Critical Value No 07/06/18 17:33 Sodium 142 meq/L (136-145) 07/07/18 05:44 Potassium 3.6 meq/L (3.5-5.1) 07/07/18 05:44 Chloride 110 meq/L (98-107) H 07/07/18 05:44 Carbon Dioxide 24.1 meq/L (21.0-32.0) 07/07/18 05:44 Anion Gap 8 meq/L (5-15) 07/07/18 05:44 BUN 8 mg/dL (7-18) 07/07/18 05:44 Creatinine 0.59 mg/dL (0.60-1.30) L 07/07/18 05:44 Estimated GFR Greater than 89 mL/min (>89) 07/07/18 05:44 POC Glucose 167 mg/dl (68-110) H 07/07/18 08:16 Random Glucose 113 mg/dL (74-106) H 07/07/18 05:44 Lactic Acid 1.2 mmol/L (0.4-2.0) 07/07/18 05:44 Calcium 7.5 mg/dL (8.5-10.1) L 07/07/18 05:44 Phosphorus 2.7 mg/dL (2.5-4.9) 07/07/18 05:44 Magnesium 1.8 mg/dL (1.5-2.5) 07/07/18 05:44 Total Bilirubin 0.4 mg/dL (0.2-1.0) 07/07/18 05:44 AST 59 U/L (15-37) H 07/07/18 05:44 ALT 75 U/L (12-78) 07/07/18 05:44 Alkaline Phosphatase 123 U/L (45-117) H 07/07/18 05:44 Total Creatine Kinase 72 U/L (39-308) 07/06/18 12:57 Troponin I Less than 0.02 ng/mL (0.02-0.05) L 07/06/18 12:57 Total Protein 6.4 g/dL (6.4-8.2) 07/07/18 05:44 Albumin 3.2 g/dL (3.4-5.0) L 07/07/18 05:44 TSH 2.020 uIU/mL (0.358-3.740) 07/06/18 12:57 Ur Collection Type Cath 07/06/18 14:25 Urine Color Yellow (Yellw/Straw) 07/06/18 14:25 Urine Clarity Slightly cloudy (Clear) 07/06/18 14:25 Urine pH 6.0 (5.0-8.5) 07/06/18 14:25 Ur Specific Arjay 1.025 (1.002-1.035) 07/06/18 14:25 Urine Protein Negative mg/dL (Neg-Trace) 07/06/18 14:25 Urine Glucose (UA) Negative mg/dL (Negative) 07/06/18 14:25 Urine Ketones Negative mg/dL (Negative) 07/06/18 14:25 Urine Occult Blood Trace (Negative) 07/06/18 14:25 Urine Nitrate Negative (Negative) 07/06/18 14:25 Urine Bilirubin Negative (Negative) 07/06/18 14:25 Urine Urobilinogen 0.2 mg/dL (Less than 2) 07/06/18 14:25 Ur Leukocyte Esterase Negative (Negative) 07/06/18 14:25 Urine WBC 0-5 /hpf (0-5) 07/06/18 14:25 Urine Bacteria Many /hpf (None) H 07/06/18 14:25 Micro UA Comment Cath-culture ind 07/06/18 14:25 Ur Microscopic Review Microscopic reviewed 07/06/18 14:25 Urine Culture Comments Cath-cult indicated 07/06/18 14:25 Carbamazepine 6.4 mcg/mL (4.0-12.0) 07/06/18 19:[address] 07/06/18 12:50 CONCLUSION: Negative noncontrast head CT. . Abdomen X-Ray 07/06/18 16:47 CONCLUSION: Nasogastric tube tip is at the distal stomach. Chest X-Ray 07/07/18 04:00 CONCLUSION: Developing airspace consolidation on the left. Primary differential diagnosis is pneumonia. Objective Remarks: GENERAL: This is a well-developed well-nourished male, orotracheally intubated and sedated SKIN: Warm and dry. HEAD: Atraumatic. Normocephalic. EYES: Pupils equal and round. No scleral icterus. No injection or drainage. ENT: No nasal bleeding or discharge. Mucous membranes pink and moist. NECK: Trachea midline. No JVD. CARDIOVASCULAR: Normal rate, S1, S2 regular rhythm. RESPIRATORY: No accessory muscle use. Clear to auscultation. Breath sounds equal bilaterally. GASTROINTESTINAL: Abdomen soft, non-tender, nondistended. No guarding. MUSCULOSKELETAL: Extremities without clubbing, cyanosis, or edema. No obvious deformities. NEUROLOGICAL: Sedated RASS -2. No gross focal/sensory deficits. Noted movement of extremities x4 with agitation does not follow commands at baseline Assessment and Plan - Problem List (1) Acute respiratory failure Code(s): J96.00 - Acute respiratory failure, unspecified whether with hypoxia or hypercapnia Status: Acute (2) Aspiration into airway Code(s): T17.908A - Unspecified foreign body in respiratory tract, part unspecified causing other injury, initial encounter Status: Acute (3) Seizure Code(s): R56.9 - Unspecified convulsions Status: Acute - Assessment and Plan Plan: This is a 35-year-old male who had an unfortunate event of choking estimated time for EMS arrival and removal of food bolus and intubation and maintenance of airway approximately 10 minutes. Concern for anoxic injury. Plan by systems: Neurologic: Developmental delay Seizure disorder Possible anoxic injury Neuro checks per ICU protocol Provide sedation vacation-currently on propofol infusion changed to Precedex infusion-to maintain ventilator synchrony 07/06 CT of the brain-no acute abnormality F/U EEG Follow-up Tegretol level Seizure precautions Home medications initiated-benztropine, carbamazepine, Haldol, Seroquel, Thorazine, Klonopin Consult neurology Respiratory: Hypoxic respiratory arrest Begin CPAP trials this a.m. Ventilator bundle Wean FiO2 to maintain O2 saturation greater than 92% ABGs and chest x-rays when clinically indicated Duo nebs every 4 hours as needed Cardiovascular: Sinus tachycardia-resolved Hemodynamically stable normotensive Initiate very vasopressors if clinically indicated Maintain MAP greater than 65 Monitor QTC Renal: Insert Weber- change to condom catheter -- Strict I/Os FEN/GI: Monitor BMP Maintain n.p.o. status for now Zofran for nausea Heme/ID: Follow-up sputum culture Levaquin, vancomycin (day 2), will de-escalate upon culture result Endocrine: Glucose monitoring per ICU protocol -- SSI Prophylaxis: GI Prophylaxis Famotidine DVT Prophylaxis -- SCDs Lovenox SC daily Lines: Peripheral IVs providing adequate access Dispo: My billing statement This patient remains critically ill with one or more organ systems which are or may become a threat to life. I have spent in excess of 37 minutes discontinuously in the care and management of this patient. This time is exclusive of procedures, and includes, but is not limited to, evaluation of the patient, review of the medical record, discussions with family, consultants, nursing staff, or respiratory therapy, and documentation in the medical record. Discussed Condition With: I telephoned Ms. Preethi Terry [phone] and provided her with a medical status update (1) Acute respiratory failure Qualifiers: Respiratory failure complication: hypoxia Qualified Code(s): J96.01 - Acute respiratory failure with hypoxia (2) Aspiration into airway Qualifiers: Encounter type: initial encounter Qualified Code(s): T17.908A - Unspecified foreign body in respiratory tract, part unspecified causing other injury, initial encounter
--- NOTE | 2018-07-07 17:13 | ECG ---
Date Performed: 07/06/2018 Time Performed: 12:55:34 PTAGE: 32 years EKG: Sinus rhythm BORDERLINE LEFT AXIS DEVIATION LOW QRS VOLTAGE IN EXTREMITY LEADS BORDERLINE ECG NO PREVIOUS TRACING DOCTOR: Sebastián Chatman Interpretating Date/Time 07/07/2018 17:11:24
[2018-07-07] MEDS: Enoxaparin Inj 30 MG/0.3 ML Syringe SQ SCH (18:20)
--- NOTE | 2018-07-07 19:47 | MG ---
cc: Shashank David MD ELECTROENCEPHALOGRAM NUMBER: [id number] CLINICAL HISTORY: Status post respiratory code, choked on a sandwich. DESCRIPTION: A diffuse 10 Hz, 30-40 microvolt rhythm is seen with superimposed delta slowing. Hyperventilation not performed. Recording overall is synchronous and symmetric. No epileptiform or seizure activity is seen. Photic stimulation is performed without any posterior driving. IMPRESSION: Some diffuse delta slowing consistent with a moderate diffuse encephalopathy. Other frequencies look okay. Clinical correlation is needed. MD TANYA Blanco/sathya , 07:03 PM , 07:07 PM
[2018-07-07] MEDS: Levofloxacin 250 mg Premix Inj 250 MG/50 ML PIGGYBACK IV.SIG SCH (20:55)
[2018-07-07] MEDS: Vancomycin Inj 1,000 MG in Sodium Chlor 0.9% Inj 250 ML IV.SIG SCH (20:58)
[2018-07-07] MEDS: clonazePAM 0.5 MG Tablet PO SCH (21:00)
[2018-07-08] MEDS: Oral Hygiene Kit OROPHARYNG SCH ×5 (00:40→18:12)
[2018-07-08] MEDS: Sod Chloride 0.9% Inj 1,000 ML IV.CONT SCH ×4 (03:20→21:14)
[2018-07-08 06:30] LABS: Chloride 109 meq/L (98-107); Potassium 3.4 meq/L (3.5-5.1); Sodium 140 meq/L (136-145)
[2018-07-08 06:32] LABS: Calcium 7.7 mg/dL (8.5-10.1)
[2018-07-08 06:33] LABS: Anion Gap 8 meq/L (5-15); Baso % (Auto) 0.3 % (0.0-2.0); Blood Urea Nitrogen 6 mg/dL (7-18); Carbon Dioxide 23.1 meq/L (21.0-32.0); Eos # (Auto) 0.1 th/mm3 (0.0-0.4); Eos % (Auto) 0.7 % (0.0-4.0); Glucose,Random 99 mg/dL (74-106); Hematocrit 34.4 % (39.0-51.0); Hemoglobin 11.6 gm/dL (13.0-17.0); Lymph # (Auto) 0.9 th/mm3 (1.0-4.8); Lymph % (Auto) 8.4 % (9.0-44.0); Magnesium 1.7 mg/dL (1.5-2.5); Mean Corpuscular HGB Conc 33.8 % (32.0-36.0); Mean Corpuscular Hemoglobin 31.3 pg (27.0-34.0); Mean Corpuscular Volume 92.5 fL (80.0-100.0); Mean Platelet Volume 7.7 fL (7.0-11.0); Mono # (Auto) 0.5 th/mm3 (0.0-0.9); Mono % (Auto) 5.2 % (0.0-8.0); Neut # (Auto) 8.6 th/mm3 (1.8-7.7); Neut % (Auto) 85.4 % (16.0-70.0); Platelet Count 176 th/mm3 (150-450); Red Blood Count 3.72 mil/mm3 (4.50-5.90); Red Cell Distribution Width 12.5 % (11.6-17.2); White Blood Count 10.1 th/mm3 (4.0-11.0)
[2018-07-08 06:36] LABS: Glomerular Filtration Rate Greater Than 89 mL/min (>89); Phosphorus 1.9 mg/dL (2.5-4.9)
--- NOTE | 2018-07-08 06:45 | XR ---
EXAM DATE: 07/08/2018 6:32 AM EST AGE/SEX: 32 years / Male INDICATIONS: Short of breath. CLINICAL DATA: This is the patient's subsequent encounter. Patient reports that signs and symptoms h ave been present for 3 days and indicates a pain score of 0/10. MEDICAL/SURGICAL HISTORY: Non-responsive. Non-responsive. COMPARISON: [facility], CHEST 1V SINGLE AP, 07/07/2018. . FINDINGS: Endotracheal tube in good position. NG enters stomach. Subsegmental basilar airspace disease slightly improved on the left since July 07. CONCLUSION: Endotracheal tube and nasogastric tube in good position. Improving airspace disease on the left. Electronically signed by: Rodrigo Blanton MD 07/08/2018 6:43 AM EST
[2018-07-08] MEDS ORDERED: Potassium Chloride 25 MEQ Effervescent Tablet PO PRN (07:07)
[2018-07-08] MEDS ORDERED: Potassium Chlor 40 mEq Premix 40 MEQ/100 ML PIGGYBACK IV.SIG PRN ×2 (07:07)
[2018-07-08] MEDS ORDERED: Potassium Chlor 20 mEq Premix 20 MEQ/100 ML PIGGYBACK IV.SIG PRN ×2 (07:07)
[2018-07-08] MEDS ORDERED: Magnesium Oxide 400 MG Tablet PO PRN (07:07)
[2018-07-08] MEDS ORDERED: Magnesium Sulfate Inj 2 GM in Sodium Chlor 0.9% Inj 96 ML IV.SIG PRN (07:07)
[2018-07-08] MEDS ORDERED: Potassium Phosphate Inj 30 MMOL in Sodium Chlor 0.9% Inj 250 ML IV.SIG PRN (07:07)
[2018-07-08] MEDS ORDERED: Sodium Phosphate Inj 30 MMOL in Sodium Chlor 0.9% Inj 250 ML IV.SIG PRN (07:07)
[2018-07-08] MEDS ORDERED: Potassium Phosphate 500 MG Soluble Tablet PO PRN ×2 (07:07)
[2018-07-08] MEDS ORDERED: Magnesium Sulfate Inj 4 GM in Sodium Chlor 0.9% Inj 92 ML IV.SIG PRN (07:07)
[2018-07-08] MEDS ORDERED: Mag Sulf 1 gm/100 ml Premix 100 ML IV.SIG ONE (07:14)
--- NOTE | 2018-07-08 07:27 | P.PNCC ---
Subjective Subjective Remarks/Hospital Course: 07/07-Propofol infusion placed on hold for assessment of neurological status and to obtain EEG. Patient became excessively agitated off sedation, infusion resumed. Home medications obtained from [facility] and resumed. 07/08: No acute events overnight. The patient was taken off of sedatives yesterday at approximately 10 AM. The patient was maintained on CPAP 10 from 10 AM yesterday until this morning. Due to the cognitive dysfunction limited spontaneous breathing trial was obtained. The patient was extubated at 0 6:35 AM. The patient appears to visually track is nonverbal, is moving extremities x4. Urine culture revealed enterococcus expansion of antibiotics with a 5-day regimen of ceftriaxone was added. Formal speech therapy is planned to evaluate for swallowing. Objective Vital Signs / I&O: Vital Signs 07/07/18 08:00 07/07/18 08:30 07/07/18 09:00 Temperature 100.0 F H 99.3 F Pulse Rate 85 86 88 Respiratory Rate 14 17 16 Blood Pressure 119/68 114/67 117/64 Pulse Oximetry 99 99 100 07/07/18 10:00 07/07/18 10:01 07/07/18 11:00 Temperature Pulse Rate 88 92 H Respiratory Rate 16 16 18 Blood Pressure 119/72 135/81 Pulse Oximetry 100 100 07/07/18 11:54 07/07/18 12:00 07/07/18 13:00 Temperature 99.2 F Pulse Rate 92 H 86 Respiratory Rate 20 17 16 Blood Pressure 135/84 135/81 Pulse Oximetry 100 98 100 07/07/18 14:00 07/07/18 14:30 07/07/18 15:30 Temperature 99.2 F Pulse Rate 88 88 Respiratory Rate 16 17 Blood Pressure 133/83 132/77 133/79 Pulse Oximetry 100 100 07/07/18 16:00 07/07/18 16:36 07/07/18 17:00 Temperature 98.8 F Pulse Rate 92 H 92 H Respiratory Rate 22 18 15 Blood Pressure 132/85 139/84 Pulse Oximetry 100 100 100 07/07/18 18:00 07/07/18 18:33 07/07/18 19:00 Temperature 98.8 F Pulse Rate 92 H 98 H Respiratory Rate 19 20 Blood Pressure 135/81 131/82 Pulse Oximetry 100 95 07/07/18 19:50 07/07/18 20:00 07/07/18 21:00 Temperature 98.9 F Pulse Rate 92 H 90 Respiratory Rate 16 19 13 Blood Pressure 135/75 131/81 Pulse Oximetry 98 100 98 07/07/18 22:00 07/07/18 22:55 07/07/18 23:00 Temperature Pulse Rate 88 90 Respiratory Rate 14 13 14 Blood Pressure 127/77 132/82 Pulse Oximetry 99 100 100 07/08/18 00:00 07/08/18 01:00 07/08/18 01:30 Temperature 98.5 F Pulse Rate 92 H 94 H 94 H Respiratory Rate 15 15 17 Blood Pressure 121/75 116/69 120/71 Pulse Oximetry 100 98 97 07/08/18 01:50 07/08/18 03:00 07/08/18 04:00 Temperature 98.7 F Pulse Rate 92 H 92 H Respiratory Rate 16 16 15 Blood Pressure 119/69 119/71 Pulse Oximetry 98 98 98 07/08/18 04:30 07/08/18 05:00 07/08/18 06:00 Temperature Pulse Rate 90 92 H Respiratory Rate 14 15 15 Blood Pressure 122/75 123/71 Pulse Oximetry 97 96 98 Intake & Output 07/07/18 07/08/18 07/08/18 18:59 06:59 18:59 Intake Total 1000 / 1000 1300 / 1300 Output Total 501 / 501 1150 / 1150 Balance 499 / 499 150 / 150 Weight 64.1 kg Intake: IV 1000 / 1000 1300 / 1300 NS Inj 1,000 ML @ 125 mls/hr IV 1000 / 1000 1000 / 1000 .CONT .Q8H [facility] Rx#:[id number] Levaquin 250 mg Premix Inj 250 50 / 50 mg In 50 ml @ 50 mls/hr IV.SIG Q24H [facility] Rx#:[id number] Vancomycin Inj 1,000 MG In NS 250 / 250 Inj 250 ML @ 250 mls/hr IV.SIG Q24H [facility] Rx#:[id number] Oral 0 / 0 Output: Urine 500 / 500 150 / 150 Stool 1 / 1 Urine Amount (Catheter) 1000 / 1000 Indwelling Urethral Catheter 1000 / 1000 Other: Date of Last Bowel Movement 07/07/18 07/07/18 Result Diagrams: 07/08/18 05:50 07/08/18 05:50 Objective Remarks: GENERAL: This is a well-developed well-nourished male, extubated in no acute distress SKIN: Warm and dry. HEAD: Atraumatic. Normocephalic. EYES: Pupils equal and round. No scleral icterus. No injection or drainage. ENT: No nasal bleeding or discharge. Mucous membranes pink and moist. NECK: Trachea midline. No JVD. CARDIOVASCULAR: Normal rate, S1, S2 regular rhythm. RESPIRATORY: No accessory muscle use. Clear to auscultation. Breath sounds equal bilaterally. GASTROINTESTINAL: Abdomen soft, non-tender, nondistended. No guarding. MUSCULOSKELETAL: Extremities without clubbing, cyanosis, or edema. No obvious deformities. NEUROLOGICAL: Awake and alert. RASS 0. No gross focal/sensory deficits. Noted movement of extremities x4 with agitation does not follow commands at baseline. Visual track Assessment and Plan - Problem List (1) Acute respiratory failure Code(s): J96.00 - Acute respiratory failure, unspecified whether with hypoxia or hypercapnia Status: Acute (2) Aspiration into airway Code(s): T17.908A - Unspecified foreign body in respiratory tract, part unspecified causing other injury, initial encounter Status: Acute (3) Seizure Code(s): R56.9 - Unspecified convulsions Status: Acute - Assessment and Plan Plan: This is a 35-year-old male who had an unfortunate event of choking estimated time for EMS arrival and removal of food bolus and intubation and maintenance of airway approximately 10 minutes. Concern for anoxic injury. Plan by systems: Neurologic: Developmental delay Seizure disorder Possible anoxic injury Neuro checks per ICU protocol 07/06 CT of the brain-no acute abnormality 07/08 EEG-moderate diffuse encephalopathy Seizure precautions Continue benztropine, carbamazepine, Haldol, Seroquel, Thorazine, Klonopin Consult neurology Respiratory: Hypoxic respiratory arrest Begin CPAP trials this a.m. Ventilator bundle Wean FiO2 to maintain O2 saturation greater than 92% ABGs and chest x-rays when clinically indicated Duo nebs every 4 hours as needed Cardiovascular: Sinus tachycardia-resolved Hemodynamically stable normotensive Initiate very vasopressors if clinically indicated Maintain MAP greater than 65 Monitor QTC Obtain follow-up EKG Renal: Insert Weber- change to condom catheter -- Strict I/Os FEN/GI: Monitor BMP Maintain n.p.o. status for now Patient may have ice chips Obtain formal speech swallow Zofran for nausea Heme/ID: UTI enterococcus group D Follow-up sputum culture Levaquin, vancomycin (day 3), will de-escalate upon culture result Add Rocephin for 5 days Endocrine: Glucose monitoring per ICU protocol -- SSI Prophylaxis: GI Prophylaxis Famotidine DVT Prophylaxis -- SCDs Lovenox SC daily Lines: Peripheral IVs providing adequate access Dispo: Level 2 follow-up. Land transfer to [facility] in a.m. (1) Acute respiratory failure Qualifiers: Respiratory failure complication: hypoxia Qualified Code(s): J96.01 - Acute respiratory failure with hypoxia (2) Aspiration into airway Qualifiers: Encounter type: initial encounter Qualified Code(s): T17.908A - Unspecified foreign body in respiratory tract, part unspecified causing other injury, initial encounter
[2018-07-08] MEDS: Haloperidol 5 MG Tablet PO SCH (08:45)
[2018-07-08] MEDS: Senna/Docusate Sodium 8.6/50 MG Tablet PO SCH ×2 (08:46→21:16)
[2018-07-08] MEDS: carBAMazepine 200 MG Tablet PO SCH ×2 (08:46→21:15)
[2018-07-08] MEDS: QUEtiapine 25 MG Tablet PO SCH (08:46)
[2018-07-08] MEDS: Famotidine 20 MG Tablet PO SCH ×2 (08:46→21:17)
[2018-07-08] MEDS: chlordiazePOXIDE 25 MG Capsule PO SCH (08:46)
[2018-07-08] MEDS: Chlorhexidine 0.12% Oral Kit 15 ML UDC OROPHARYNG SCH ×2 (09:06→21:19)
[2018-07-08] MEDS: Famotidine PF Inj 20 MG/2 ML Vial IV.PUSH SCH ×2 (09:08→21:19)
--- NOTE | 2018-07-08 14:02 | ECG ---
Date Performed: 07/08/2018 Time Performed: 08:57:25 PTAGE: 32 years EKG: Sinus rhythm BORDERLINE LEFT AXIS DEVIATION BORDERLINE ECG PREVIOUS TRACING : 07/06/2018 12.55 Since the previous tracing, no significant change noted DOCTOR: Wes Powell Interpretating Date/Time 07/08/2018 14:01:33
[2018-07-08] MEDS ORDERED: Influenza (Quadrivalent) Vaccine 0.5 ML Syringe IM ONE ×2 (18:00→19:15)
[2018-07-08] MEDS: Levofloxacin 250 mg Premix Inj 250 MG/50 ML PIGGYBACK IV.SIG SCH (21:14)
[2018-07-08] MEDS: clonazePAM 0.5 MG Tablet PO SCH (21:16)
[2018-07-08] MEDS: Enoxaparin Inj 30 MG/0.3 ML Syringe SQ SCH (21:21)
[2018-07-08] MEDS: Vancomycin Inj 1,000 MG in Sodium Chlor 0.9% Inj 250 ML IV.SIG SCH (23:03)
[2018-07-09] MEDS: Oral Hygiene Kit OROPHARYNG SCH ×4 (02:50→17:34)
[2018-07-09 06:05] LABS: Baso % (Auto) 0.4 % (0.0-2.0); Eos % (Auto) 0.4 % (0.0-4.0); Hematocrit 33.9 % (39.0-51.0); Hemoglobin 11.4 gm/dL (13.0-17.0); Lymph # (Auto) 0.8 th/mm3 (1.0-4.8); Lymph % (Auto) 9.9 % (9.0-44.0); Mean Corpuscular HGB Conc 33.7 % (32.0-36.0); Mean Corpuscular Hemoglobin 31.3 pg (27.0-34.0); Mean Platelet Volume 7.6 fL (7.0-11.0); Mono # (Auto) 0.4 th/mm3 (0.0-0.9); Mono % (Auto) 5.2 % (0.0-8.0); Neut # (Auto) 7.2 th/mm3 (1.8-7.7); Neut % (Auto) 84.1 % (16.0-70.0); Platelet Count 171 th/mm3 (150-450); Red Blood Count 3.65 mil/mm3 (4.50-5.90); Red Cell Distribution Width 12.4 % (11.6-17.2); White Blood Count 8.4 th/mm3 (4.0-11.0)
[2018-07-09 06:12] LABS: Chloride 107 meq/L (98-107); Potassium 3.3 meq/L (3.5-5.1); Sodium 140 meq/L (136-145)
[2018-07-09 06:14] LABS: Calcium 7.5 mg/dL (8.5-10.1)
[2018-07-09 06:15] LABS: Anion Gap 8 meq/L (5-15); Blood Urea Nitrogen 6 mg/dL (7-18); Glucose,Random 110 mg/dL (74-106); Magnesium 1.8 mg/dL (1.5-2.5)
[2018-07-09 06:18] LABS: Glomerular Filtration Rate Greater Than 89 mL/min (>89)
[2018-07-09] MEDS: Sod Chloride 0.9% Inj 1,000 ML IV.CONT SCH ×2 (06:34→14:33)
[2018-07-09] MEDS: Famotidine PF Inj 20 MG/2 ML Vial IV.PUSH SCH (08:46)
[2018-07-09] MEDS: carBAMazepine 200 MG Tablet PO SCH ×2 (08:47→20:07)
[2018-07-09] MEDS: Senna/Docusate Sodium 8.6/50 MG Tablet PO SCH ×2 (08:48→20:07)
[2018-07-09] MEDS: Chlorhexidine 0.12% Oral Kit 15 ML UDC OROPHARYNG SCH (08:51)
[2018-07-09] MEDS ORDERED: Influenza (Quadrivalent) Vaccine 0.5 ML Syringe IM ONE (10:00)
[2018-07-09] MEDS: Famotidine 20 MG Tablet PO SCH (10:25)
--- NOTE | 2018-07-09 10:28 | P.PNIM ---
Subjective Interval history: 32-year-old male who [facility] originally presented to the hospital because of documentation indicating that he was eating a peanut butter and jelly sandwich and started having a choking episode. Heimlich maneuver was performed and was unsuccessful. Patient became unresponsive, CPR was initiated by 1 of 10 minutes. EMS was contacted and it took approximately 10 minutes until the food bolus was noted the posterior pharynx removed by forceps. Patient was then intubated and transported to [facility] emergency department. Information is unobtainable from the patient but appear the patient does have history of significant developmental delay, seizure disorder. Patient was admitted to the ICU with intubation and sedation. Patient continued critical care management with intubation. EEG was performed to evaluate for anoxic cephalopathy. It did show some diffuse theta slowing consistent with a moderate diffuse encephalopathy. Neurology was consulted for further recommendations and evaluation. Patient was successfully extubated on 07/08/18 and subsequently transferred to the medical service to continue care and management. Upon evaluating patient today he will response to painful stimuli. Patient does not have any purposeful movements. Awaiting evaluation by neurologist for anoxic encephalopathy. Patient is maintaining his airway at this time. Physical Exam Vital signs: Vital Signs 07/08/18 10:30 07/08/18 11:00 07/08/18 11:14 Temperature Pulse Rate 90 94 H 98 H Respiratory Rate 17 29 H 26 H Blood Pressure 153/78 H Pulse Oximetry 100 98 99 07/08/18 11:30 07/08/18 12:00 07/08/18 12:14 Temperature 100.5 F H Pulse Rate 102 H 104 H 106 H Respiratory Rate 30 H 29 H 28 H Blood Pressure 126/87 Pulse Oximetry 99 97 98 07/08/18 12:30 07/08/18 13:00 07/08/18 13:14 Temperature Pulse Rate 106 H 108 H 108 H Respiratory Rate 26 H 35 H 33 H Blood Pressure 155/78 H Pulse Oximetry 98 97 99 07/08/18 13:30 07/08/18 14:00 07/08/18 14:14 Temperature 102.5 F H Pulse Rate 112 H 110 H 110 H Respiratory Rate 30 H 43 H 40 H Blood Pressure 151/75 H 151/75 H Pulse Oximetry 100 99 97 07/08/18 14:30 07/08/18 15:00 07/08/18 15:14 Temperature 102.5 F H 98.7 F 98.6 F Pulse Rate 104 H 102 H 102 H Respiratory Rate 32 H 32 H 29 H Blood Pressure 123/69 Pulse Oximetry 97 97 96 07/08/18 15:30 07/08/18 16:00 07/08/18 16:14 Temperature 98.8 F Pulse Rate 102 H 100 H 98 H Respiratory Rate 31 H 24 25 H Blood Pressure 122/71 Pulse Oximetry 96 96 95 07/08/18 16:30 07/08/18 17:00 07/08/18 17:14 Temperature Pulse Rate 92 H 88 92 H Respiratory Rate 22 39 H 52 H Blood Pressure 114/65 Pulse Oximetry 96 98 99 07/08/18 17:30 07/08/18 17:35 07/08/18 18:00 Temperature 98.0 F 99.1 F Pulse Rate 94 H 94 H Respiratory Rate 23 22 Blood Pressure Pulse Oximetry 99 99 07/08/18 18:14 07/08/18 18:30 07/08/18 19:00 Temperature Pulse Rate 92 H 92 H 94 H Respiratory Rate 21 22 22 Blood Pressure 125/68 Pulse Oximetry 98 100 100 07/08/18 19:14 07/08/18 19:30 07/08/18 19:41 Temperature Pulse Rate 92 H 92 H Respiratory Rate 22 21 Blood Pressure 125/74 Pulse Oximetry 100 100 100 07/08/18 20:00 07/08/18 20:14 07/08/18 20:30 Temperature 98.4 F Pulse Rate 95 H 94 H 94 H Respiratory Rate 23 22 23 Blood Pressure 139/76 139/76 Pulse Oximetry 100 100 100 07/08/18 21:00 07/08/18 21:14 07/08/18 21:30 Temperature Pulse Rate 96 H 94 H 92 H Respiratory Rate 26 H 25 H 23 Blood Pressure 139/81 Pulse Oximetry 100 100 99 07/08/18 22:00 07/08/18 22:14 07/08/18 22:30 Temperature Pulse Rate 96 H 94 H 92 H Respiratory Rate 21 22 20 Blood Pressure 119/73 Pulse Oximetry 99 100 100 07/08/18 23:00 07/08/18 23:14 07/09/18 00:00 Temperature 98.6 F Pulse Rate 92 H 92 H 96 H Respiratory Rate 19 19 34 H Blood Pressure 120/71 120/70 Pulse Oximetry 100 100 99 07/09/18 00:18 07/09/18 01:00 07/09/18 02:00 Temperature Pulse Rate 99 H 94 H 96 H Respiratory Rate 18 23 26 H Blood Pressure 120/73 126/75 Pulse Oximetry 100 99 07/09/18 03:00 07/09/18 04:00 07/09/18 04:13 Temperature 98.7 F Pulse Rate 92 H 88 92 H Respiratory Rate 22 20 22 Blood Pressure 110/66 115/73 Pulse Oximetry 98 98 07/09/18 05:00 07/09/18 06:00 07/09/18 07:32 Temperature Pulse Rate 96 H 90 Respiratory Rate 21 26 H Blood Pressure 118/69 117/62 Pulse Oximetry 99 98 98 Intake & Output 07/08/18 07/09/18 07/09/18 18:59 06:59 18:59 Intake Total 1405 / 1405 2400 / 2400 100 / 100 Output Total 1345 / 1345 825 / 825 Balance 60 / 60 1575 / 1575 100 / 100 Intake: IV 1200 / 1200 2400 / 2400 100 / 100 NS Inj 1,000 ML @ 125 mls/hr IV 1000 / 1000 2000 / 2000 .CONT .Q8H VIK Rx#:[id number] Levaquin 250 mg Premix Inj 250 50 / 50 mg In 50 ml @ 50 mls/hr IV.SIG Q24H VIK Rx#:[id number] Magnesium Sulfate 1 gm/D5W 100 100 / 100 ml Premix 100 ML @ 100 mls/hr IV.SIG ONCE ONE Rx#:[id number] Vancomycin Inj 1,000 MG In NS 250 / 250 Inj 250 ML @ 250 mls/hr IV.SIG Q24H VIK Rx#:[id number] Rocephin Inj 1,000 MG In NS Inj 100 / 100 100 / 100 100 / 100 100 ML @ 200 mls/hr IV.SIG Q12H VIK Rx#:[id number] Oral 205 / 205 0 / 0 Output: Urine 600 / 600 Urine Amount (Catheter) 745 / 745 825 / 825 Indwelling Urethral Catheter 745 / 745 825 / 825 Gastric Drainage 0 / 0 Left Nare Nasogastric Tube 0 / 0 Other: Date of Last Bowel Movement 07/07/18 07/07/18 # Bowel Movements 0 Narrative: GENERAL: Well-developed, mild malnourishment, in no acute distress. Patient is arousable with painful stimuli only. Patient without any purposeful movements HEENT: Head is normocephalic without any lesions or masses noted. Eyes: Pupils are round and reactive to light. Conjunctivae were clear. NECK: Supple without any masses. Trachea midline no deviation. No JVD, CARDIAC: Regular rhythm, regular rate. S1/S2 are heard. No murmurs gallops or rubs. LUNGS: Clear to auscultation bilaterally. No wheeze, rhonchi or rales. No use of accessory muscles on inspiration or expiration. ABDOMEN: Soft, patient does not respond to palpitation indicate any pain. nondistended. Bowel sounds heard in all 4 quadrants. No organomegaly or masses. EXTREMITIES: No edema, pulses are equal bilaterally. No cyanosis or clubbing NEUROLOGY: Patient is only responsive to painful stimuli. - Urinary Catheter Management Indwelling Urethral Catheter Cath placed during this visit: yes Reason for continuing: Acute urinary retention Insertion date: 07/07/18 Insertion time: 22:00 Results - Labs CBC & Chem 7: 07/09/18 05:40 07/09/18 05:40 Laboratory Results - last 24 hr 07/08/18 07/08/18 07/09/18 11:34 16:58 02:47 CBC w Diff WBC RBC Hgb Hct MCV MCH MCHC RDW Plt Count MPV Neut % (Auto) Lymph % (Auto) [place] % (Auto) Eos % (Auto) Baso % (Auto) Neut # (Auto) Lymph # (Auto) [place] # (Auto) Eos # (Auto) Baso # (Auto) WBC Differential Differential Comment Sodium Potassium Chloride Carbon Dioxide Anion Gap BUN Creatinine Estimated GFR POC Glucose 75 109 97 Random Glucose Calcium Phosphorus Magnesium 07/09/18 07/09/18 07/09/18 05:40 05:40 07:45 CBC w Diff Auto diff final WBC 8.4 RBC 3.65 L Hgb 11.4 L Hct 33.9 L MCV 93.0 MCH 31.3 MCHC 33.7 RDW 12.4 Plt Count 171 MPV 7.6 Neut % (Auto) 84.1 H Lymph % (Auto) 9.9 [place] % (Auto) 5.2 Eos % (Auto) 0.4 Baso % (Auto) 0.4 Neut # (Auto) 7.2 Lymph # (Auto) 0.8 L [place] # (Auto) 0.4 Eos # (Auto) 0.0 Baso # (Auto) 0.0 WBC Differential . Differential Comment . Sodium 140 Potassium 3.3 L Chloride 107 Carbon Dioxide 25.0 Anion Gap 8 BUN 6 L Creatinine 0.51 L Estimated GFR Greater than 89 POC Glucose 101 Random Glucose 110 H Calcium 7.5 L Phosphorus 2.0 L Magnesium 1.8 Microbiology 07/06/18 19:20 Sputum - Endotracheal Gram Stain - Final 07/06/18 19:20 Sputum - Endotracheal Sputum Culture - Preliminary 07/06/18 14:25 Clean Catch Urine Urine Culture - Final Enterococcus faecalis - Procedures EEG IMPRESSION: Some diffuse delta slowing consistent with a moderate diffuse encephalopathy. Other frequencies look okay. Clinical correlation is needed. Assessment and Plan - Plan Encephalopathy, likely secondary to anoxic injury -CT of the brain was performed and was unremarkable -EEG was performed, please see above results -Neurology consulted for further recommendations and evaluation -Palliative care consultation has been requested Hypoxic respiratory arrest secondary to food obstruction/choking -Patient was initially intubated and was successfully extubated on 07/08/18 -Patient maintaining airway at this time -Continue O2 supplementation maintain O2 sats greater than 92% -Duo nebs as needed Left lung airspace consolidation -Follow-up chest x-ray show improvement -Possible aspiration versus negative pressure edema -Continue antibiotics at this time, await final culture for appropriate antibiotic -Sputum culture showing gram positive cocci with heavy growth beta colonies, normal respiratory kenneth, awaiting final culture Urinary tract infection with Enterococcus faecalis -Patient currently on vancomycin, Rocephin, Levaquin -Infectious disease was consulted, -Remove indwelling Weber, place condom catheter Electrolyte abnormalities -Continue to monitor and replete as needed -ICU electrolyte replacement protocol Nutrition -Start tube feeding Jevity 1.5 at 15 mL's per hour and advance 5 mL's per hour until goal of 40. -Dietary consulted for tube feeding recommendations Developmental delay, seizure disorder -Home medications have been continued Prophylaxis -DVT prevention with continued Lovenox, sequential compression devices -GI protection with Prevacid SolTab 30 mg daily
[2018-07-09 11:46] LABS: Vitamin B12 603 pg/mL (193-986)
[2018-07-09] MEDS: Acetaminophen 325 MG Tablet PO PRN ×2 (12:43→20:07)
--- NOTE | 2018-07-09 13:59 | P.DIET ---
Nutritional Evaluation Type of nutrition evaluation: initial Nutrition consult regarding: Tube Feeding (07/09 ) [place] [facility] [place] - Diagnosis Respiratory Failure, Aspiration - Objective % IBW: 94 (IBW: 70kg) Body Weight Used for Calculations: Actual (65.5kg) Energy Needs - Lower Range (kCal/kg): 28 Energy Needs - Upper Range (kCal/kg): 33 Lower Limit kCal/kg (kCals): 1,834 Upper Limit kCal/kg (kCals): 2,096 Lower Limit Protein Factor (Grams per Kg): 1.2 Upper Limit Protein Factor (Grams per Kg): 1.4 Lower Protein Needs (Protein): 79 Upper Protein Needs (Protein): 100 Fluid Factor (ml/kg): 33 Estimated Fluid Needs (ml): 2,096 Dietitian Reviewed in Medical Record: Current diet, Curent medications, Intake & Output, Labs, Medical history, Tube feeding Diet Order: NPO Objective Comments: PMH: Epilepsy, developmental delay Assessment Assessment: Pt at nutritional risk r/t current clinical status. Pt admitted after choking on a sandwich, was intubated but extubated 07/08. Pt remains NPO and TF Jevity 1.5 with goal rate 40ml/hr per MD. Pt's nutritional needs as assessed above. To meet his needs a goal rate of 55ml/hr is necessary providing 1980kcals, 84gms protein and 1003mls free water. Will monitor TF tolerance, clinical course. Recommendations: TF Jevity 1.5 with goal rate of 55ml/hr Dietitian to Monitor: Lab values, Intake & Output, Tube feeding tolerance, Weight change, Medical course
--- NOTE | 2018-07-09 14:48 | P.CONID ---
History of Present Illness Service: Infectious Disease Consult date: 07/09/18 Requesting Physician: Disha Roldan Reason for Consult: Aspiration Primary Care Provider: Krishan Lane MD Chief Complaint: Respiratory arrest History of Present Illness: 32/M with significant developmental delay and h/o seizures - [facility] and apparently was eating a peanut butter jelly sandwich when he aspirated so a Heimlich maneuver was done- however patient went into respiratory arrest and so EMS had to intubate him and patient was on the ventilator till yesterday . Patient is unresponsive and has been running fevers. His sputum culture is growing Staph aureus and Urine culture is growing Enterococcus. Review of Systems unobtainable due to mental status PMFSH - History History Provided By: Recreational Assistant / EMT - Medical History Medical History: Medical History (Last Reviewed 07/09/18 @ 07:58 by Krista Merrill) Epilepsy History of developmental delay - Tobacco History Second Hand Smoke Exposure: No Tobacco Use In Past 30 Days: No Smoking Status: Never smoker - Alcohol History How Often Do You Have a Drink Containing Alcohol: Never - Substance Use History Substance History: No History of Abuse - Travel History Recent Travel in the [place] Within the Last 8 Weeks: No Recent Travel Out of the Country Within the Last 8 Weeks: No - Immunization History Tetanus Immunization: Unsure Hx Influenza Vaccine This Season: No Medications and Allergies Active Medications: Active Medications Acetaminophen (Tylenol) 650 mg PO Q6H PRN PRN Reason: TEMP>101 Last Admin: 07/09/18 12:43 Dose: 650 mg Al Hydroxide/Mg Hydroxide (Milk Of [place] Liq) 30 ml PO Q12H PRN PRN Reason: Mild Constipation Albuterol (Duoneb Neb (Prn)) 1 ampul NEB Q2HR NEB PRN PRN Reason: WHEEZING Last Admin: 07/09/18 13:58 Dose: 1 ampul Benztropine Mesylate (Cogentin) 2 mg PO BID [facility] Last Admin: 07/09/18 08:48 Dose: 2 mg Bisacodyl (Dulcolax Supp) 10 mg RECTAL DAILY PRN PRN Reason: SEVERE CONSITIPATION Carbamazepine (Tegretol) 300 mg PO BID [facility] Last Admin: 07/09/18 08:47 Dose: 300 mg Chlorhexidine Gluconate (Chlorhexidine 2% Cloth) 3 pack TOPICAL DAILY@0400 PRN PRN Reason: Extra cloth needed Stop: 07/12/18 03:59 Clonazepam (Klonopin) 0.5 mg PO DAILY@2100 [facility] Last Admin: 07/08/18 21:16 Dose: 0.5 mg Dextrose (D50w Vial) 50 ml IV.PUSH UNSCH PRN PRN Reason: PER HYPOGLYCEMIA PROTOCOL Enoxaparin Sodium (Lovenox Inj) 30 mg SQ Q24H [facility] Last Admin: 07/08/18 21:21 Dose: 30 mg Glucagon (Glucagon Inj) 1 mg OTHER PRN PRN PRN Reason: for Hypoglycemia Protocol Sodium Chloride (Ns Inj) 1,000 mls @ 84 mls/hr IV.CONT .[id number] [facility] Last Admin: 07/09/18 14:33 Dose: 125 mls/hr Magnesium Sulfate 4 gm/ Sodium (Chloride) 100 mls @ 50 mls/hr IV.SIG UNSCH PRN PRN Reason: For Magnesium 0.9 - 1.1 mg/dL Magnesium Sulfate 2 gm/ Sodium (Chloride) 100 mls @ 50 mls/hr IV.SIG UNSCH PRN PRN Reason: For Magnesium 1.2 - 1.6 mg/dL Potassium Chloride (Kcl 40 Meq Premix Inj) 40 meq in 100 mls @ 25 mls/hr IV.SIG Q2H PRN PRN Reason: For Potassium 2.8 - 3.2 mEq/L Potassium Chloride (Kcl 20 Meq Premix Inj) 20 meq in 100 mls @ 50 mls/hr IV.SIG Q2H PRN PRN Reason: For Potassium 3.3 - 3.5 mEq/L Sodium Phosphate 30 mmol/ (Sodium Chloride) 260 mls @ 42 mls/hr IV.SIG UNSCH PRN PRN Reason: For Phosphorus < 2.5 mg/dL Vancomycin HCl 1,000 mg/ (Sodium Chloride) 250 mls @ 250 mls/hr IV.SIG Q24H [facility] Last Infusion: 07/09/18 00:00 Dose: Infused Potassium Chloride (Kcl 20 Meq Premix Inj) 20 meq in 100 mls @ 50 mls/hr IV.SIG Q2H PRN PRN Reason: For Potassium 3.3 - 3.5 mEq/L Potassium Chloride (Kcl 40 Meq Premix Inj) 40 meq in 100 mls @ 25 mls/hr IV.SIG UNSCH PRN PRN Reason: For Potassium 3.3 - 3.5 mEq/L Potassium Chloride (Kcl 20 Meq Premix Inj) 20 meq in 100 mls @ 50 mls/hr IV.SIG Q2H PRN PRN Reason: For Potassium 2.8 - 3.2 mEq/L Potassium Phosphate 30 mmol/ (Sodium Chloride) 260 mls @ 42 mls/hr IV.SIG UNSCH PRN PRN Reason: SEE LABEL COMMENTS Last Admin: 07/09/18 06:35 Dose: 42 mls/hr Potassium Chloride (Kcl 40 Meq Premix Inj) 40 meq in 100 mls @ 25 mls/hr IV.SIG Q2H PRN PRN Reason: For Potassium 2.8 - 3.2 mEq/L Ampicillin Sodium/Sulbactam (Sodium 3 gm/ Sodium Chloride) 100 mls @ 200 mls/ hr IV.SIG Q6H VIK Lactulose (Lactulose Liq) 30 ml PO DAILY PRN PRN Reason: SEVERE CONSITIPATION Lansoprazole (Prevacid Solutab) 30 mg NG/OG DAILY IVK Lorazepam (Ativan Inj) 2 mg IV.PUSH Q2H PRN PRN Reason: SEIZURES Magnesium Oxide (Mag-Ox) 800 mg PO UNSCH PRN PRN Reason: For Magnesium 1.2 - 1.6 mg/dL Miscellaneous Medication () 1 each OROPHARYNG 0000,0400,1200,1600 [facility] Last Admin: 07/09/18 12:42 Dose: 1 each Ondansetron HCl (Zofran Inj) 4 mg IV.PUSH Q6H PRN PRN Reason: NAUSEA OR VOMITING Pharmacy Profile Note (Vancomycin Consult Pharmacy) 1 each OTHER UNSCH PRN PRN Reason: Pharmacy to dose Potassium Bicarb/Potassium Chloride (K-Lyte Cl Eff) 50 meq PO UNSCH PRN PRN Reason: For Potassium 3.3 - 3.5 mEq/L Potassium Phosphate (K-Phos Original) 2,000 mg PO Q4H PRN PRN Reason: Phosphorus Less Than 2.5 mg/dL Potassium Phosphate (K-Phos Original) 2,000 mg PO Q4H PRN PRN Reason: Phosphorus Less Than 2.5 mg/dL Potassium Phosphate (K-Phos Original) 2,000 mg PO UNSCH PRN PRN Reason: SEE LABEL COMMENTS Senna/Docusate Sodium ([place]a-Colace) 1 tab PO BID [facility] Last Admin: 07/09/18 08:48 Dose: 1 tab Sennosides (Senokot) 17.2 mg PO Q12H PRN PRN Reason: Moderate Constipation Sodium Chloride (Ns Flush) 2 ml IV.FLUSH BID [facility] Last Admin: 07/09/18 08:51 Dose: 2 ml Sodium Chloride (Ns Flush) 2 ml IV.FLUSH PRN PRN PRN Reason: FLUSH AFTER USING IV ACCESS Allergies Allergy/AdvReac Type Severity Reaction Status Date / Time bee venom protein (honey bee) Allergy Severe Unverified 10/18/17 14:56 lactose Allergy Mild Unverified 10/18/17 14:56 Home Medications Medication Instructions Recorded Confirmed Type Unable to Obtain Home Meds 07/06/18 07/06/18 History Exam Vital signs: Vital Signs 07/08/18 15:00 07/08/18 15:14 07/08/18 15:30 Temperature 98.7 F 98.6 F Pulse Rate 102 H 102 H 102 H Respiratory Rate 32 H 29 H 31 H Blood Pressure 123/69 Pulse Oximetry 97 96 96 07/08/18 16:00 07/08/18 16:14 07/08/18 16:30 Temperature 98.8 F Pulse Rate 100 H 98 H 92 H Respiratory Rate 24 25 H 22 Blood Pressure 122/71 Pulse Oximetry 96 95 96 07/08/18 17:00 07/08/18 17:14 07/08/18 17:30 Temperature Pulse Rate 88 92 H 94 H Respiratory Rate 39 H 52 H 23 Blood Pressure 114/65 Pulse Oximetry 98 99 99 07/08/18 17:35 07/08/18 18:00 07/08/18 18:14 Temperature 98.0 F 99.1 F Pulse Rate 94 H 92 H Respiratory Rate 22 21 Blood Pressure 125/68 Pulse Oximetry 99 98 07/08/18 18:30 07/08/18 19:00 07/08/18 19:14 Temperature Pulse Rate 92 H 94 H 92 H Respiratory Rate 22 22 22 Blood Pressure 125/74 Pulse Oximetry 100 100 100 07/08/18 19:30 07/08/18 19:41 07/08/18 20:00 Temperature 98.4 F Pulse Rate 92 H 95 H Respiratory Rate 21 23 Blood Pressure 139/76 Pulse Oximetry 100 100 100 07/08/18 20:14 07/08/18 20:30 07/08/18 21:00 Temperature Pulse Rate 94 H 94 H 96 H Respiratory Rate 22 23 26 H Blood Pressure 139/76 Pulse Oximetry 100 100 100 07/08/18 21:14 07/08/18 21:30 07/08/18 22:00 Temperature Pulse Rate 94 H 92 H 96 H Respiratory Rate 25 H 23 21 Blood Pressure 139/81 Pulse Oximetry 100 99 99 07/08/18 22:14 07/08/18 22:30 07/08/18 23:00 Temperature Pulse Rate 94 H 92 H 92 H Respiratory Rate 22 20 19 Blood Pressure 119/73 Pulse Oximetry 100 100 100 07/08/18 23:14 07/09/18 00:00 07/09/18 00:18 Temperature 98.6 F Pulse Rate 92 H 96 H 99 H Respiratory Rate 19 34 H 18 Blood Pressure 120/71 120/70 Pulse Oximetry 100 99 07/09/18 01:00 07/09/18 02:00 07/09/18 03:00 Temperature Pulse Rate 94 H 96 H 92 H Respiratory Rate 23 26 H 22 Blood Pressure 120/73 126/75 110/66 Pulse Oximetry 100 99 98 07/09/18 04:00 07/09/18 04:13 07/09/18 05:00 Temperature 98.7 F Pulse Rate 88 92 H 96 H Respiratory Rate 20 22 21 Blood Pressure 115/73 118/69 Pulse Oximetry 98 99 07/09/18 06:00 07/09/18 07:14 07/09/18 07:32 Temperature 99.8 F H Pulse Rate 90 94 H Respiratory Rate 26 H 39 H Blood Pressure 117/62 116/62 Pulse Oximetry 98 98 98 07/09/18 08:00 07/09/18 09:14 07/09/18 10:14 Temperature Pulse Rate 92 H 94 H 94 H Respiratory Rate 31 H 25 H 31 H Blood Pressure 118/60 119/66 104/66 Pulse Oximetry 96 97 95 07/09/18 11:00 07/09/18 12:00 07/09/18 12:43 Temperature 98.8 F Pulse Rate 92 H 96 H Respiratory Rate 20 22 18 Blood Pressure 103/65 110/70 Pulse Oximetry 94 L 96 07/09/18 13:00 07/09/18 14:00 Temperature Pulse Rate 92 H 84 Respiratory Rate 21 23 Blood Pressure 103/67 103/67 Pulse Oximetry 95 96 Intake & Output 07/08/18 07/09/18 07/09/18 18:59 06:59 18:59 Intake Total 1405 / 1405 2400 / 2400 1100 / 1100 Output Total 1345 / 1345 825 / 825 225 / 225 Balance 60 / 60 1575 / 1575 875 / 875 Intake: IV 1200 / 1200 2400 / 2400 1100 / 1100 NS Inj 1,000 ML @ 125 mls/hr IV 1000 / 1000 2000 / 2000 1000 / 1000 .CONT .Q8H VIK Rx#:[id number] Levaquin 250 mg Premix Inj 250 50 / 50 mg In 50 ml @ 50 mls/hr IV.SIG Q24H VIK Rx#:[id number] Magnesium Sulfate 1 gm/D5W 100 100 / 100 ml Premix 100 ML @ 100 mls/hr IV.SIG ONCE ONE Rx#:[id number] Vancomycin Inj 1,000 MG In NS 250 / 250 Inj 250 ML @ 250 mls/hr IV.SIG Q24H VIK Rx#:[id number] Rocephin Inj 1,000 MG In NS Inj 100 / 100 100 / 100 100 / 100 100 ML @ 200 mls/hr IV.SIG Q12H VIK Rx#:[id number] Oral 205 / 205 0 / 0 Output: Urine 600 / 600 Urine Amount (Catheter) 745 / 745 825 / 825 225 / 225 Indwelling Urethral Catheter 745 / 745 825 / 825 225 / 225 Gastric Drainage 0 / 0 Left Nare Nasogastric Tube 0 / 0 Other: Date of Last Bowel Movement 07/07/18 07/07/18 # Bowel Movements 0 - Constitutional thin, chronically ill appearing, obtunded - Routine HEENT Exam Head: Present: normocephalic, atraumatic. Absent: facial swelling Eye: Absent: periorbital swelling ENT: Present: mucous membranes moist - Routine Neck Exam Present: supple. Absent: swelling - Routine Chest/Breast/Axilla Exam Chest wall: Absent: tenderness, mass - Routine Respiratory Exam Present: decreased breath sounds, crackles. Absent: accessory muscle use - Routine Cardiovascular Exam Present: RRR, S1, S2 - Routine Abdominal Exam Present: soft, normoactive bowel sounds. Absent: tenderness, distended, rigid - Routine Extremities Exam Absent: cyanosis, edema - Routine Skin Exam Present: erythema (Rt hand and arm) - Routine Neurological Exam Present: moving all extremities. Absent: alert, oriented X3 Results - Labs CBC & Chem 7: 07/09/18 05:40 07/09/18 05:40 Labs: Laboratory Results - last 24 hr 07/08/18 07/09/18 07/09/18 16:58 02:47 05:40 CBC w Diff WBC RBC Hgb Hct MCV MCH MCHC RDW Plt Count MPV Neut % (Auto) Lymph % (Auto) [place] % (Auto) Eos % (Auto) Baso % (Auto) Neut # (Auto) Lymph # (Auto) [place] # (Auto) Eos # (Auto) Baso # (Auto) WBC Differential Differential Comment Sodium 140 Potassium 3.3 L Chloride 107 Carbon Dioxide 25.0 Anion Gap 8 BUN 6 L Creatinine 0.51 L Estimated GFR Greater than 89 POC Glucose 109 97 Random Glucose 110 H Calcium 7.5 L Phosphorus 2.0 L Magnesium 1.8 Vitamin B12 603 07/09/18 07/09/18 07/09/18 05:40 07:45 11:53 CBC w Diff Auto diff final WBC 8.4 RBC 3.65 L Hgb 11.4 L Hct 33.9 L MCV 93.0 MCH 31.3 MCHC 33.7 RDW 12.4 Plt Count 171 MPV 7.6 Neut % (Auto) 84.1 H Lymph % (Auto) 9.9 [place] % (Auto) 5.2 Eos % (Auto) 0.4 Baso % (Auto) 0.4 Neut # (Auto) 7.2 Lymph # (Auto) 0.8 L [place] # (Auto) 0.4 Eos # (Auto) 0.0 Baso # (Auto) 0.0 WBC Differential . Differential Comment . Sodium Potassium Chloride Carbon Dioxide Anion Gap BUN Creatinine Estimated GFR POC Glucose 101 113 H Random Glucose Calcium Phosphorus Magnesium Vitamin B12 Assessment and Plan (1) Aspiration pneumonia Status: Acute Code(s): J69.0 - Pneumonitis due to inhalation of food and vomit (2) Aspiration into airway Status: Acute Code(s): T17.908A - Unspecified foreign body in respiratory tract, part unspecified causing other injury, initial encounter (3) Seizure Status: Acute Code(s): R56.9 - Unspecified convulsions - Plan 1. Reviewed cultures. Sputum with Staph aureus - susceptibility pending.. Urine culture with enterococcus 2. Pending susceptibility testing - continue IV Vancomycin- pharmacy to dose and follow. 3. Stop IV Ceftriaxone 4. Stop IV Levofloxacin 5. Start Unasyn 3 g IV q 6hrs 6. Patient running fevers- get blood cultures and a rapid Flu test (2) Aspiration into airway Qualifiers: Encounter type: initial encounter Qualified Code(s): T17.908A - Unspecified foreign body in respiratory tract, part unspecified causing other injury, initial encounter
[2018-07-09] MEDS ORDERED: Vancomycin Consult Pharmacy OTHER PRN (15:00)
[2018-07-09] MEDS: Ampicillin/Sulbactam Inj 3 GM in Sodium Chloride 0.9% Inj 100 ML IV.SIG SCH ×2 (15:50→20:06)
[2018-07-09] MEDS: Vancomycin Inj 850 MG in Sodium Chlor 0.9% Inj 250 ML IV.SIG SCH (16:34)
[2018-07-09] MEDS: Enoxaparin Inj 30 MG/0.3 ML Syringe SQ SCH (18:25)
[2018-07-09] MEDS: clonazePAM 0.5 MG Tablet PO SCH (20:09)
[2018-07-10] MEDS: Oral Hygiene Kit OROPHARYNG SCH ×4 (00:04→17:06)
[2018-07-10] MEDS: Vancomycin Inj 850 MG in Sodium Chlor 0.9% Inj 250 ML IV.SIG SCH ×2 (00:27→09:59)
[2018-07-10] MEDS: Sod Chloride 0.9% Inj 1,000 ML IV.CONT SCH (00:29)
[2018-07-10] MEDS: Ampicillin/Sulbactam Inj 3 GM in Sodium Chloride 0.9% Inj 100 ML IV.SIG SCH ×4 (03:02→20:54)
[2018-07-10] MEDS: Acetaminophen 325 MG Tablet PO PRN ×2 (04:29→17:05)
[2018-07-10 04:39] LABS: Baso # (Auto) 0.1 th/mm3 (0.0-0.2); Baso % (Auto) 1.6 % (0.0-2.0); Eos # (Auto) 0.2 th/mm3 (0.0-0.4); Eos % (Auto) 1.9 % (0.0-4.0); Hematocrit 30.6 % (39.0-51.0); Hemoglobin 10.3 gm/dL (13.0-17.0); Lymph # (Auto) 0.6 th/mm3 (1.0-4.8); Lymph % (Auto) 8.1 % (9.0-44.0); Mean Corpuscular HGB Conc 33.7 % (32.0-36.0); Mean Corpuscular Hemoglobin 31.6 pg (27.0-34.0); Mean Corpuscular Volume 93.9 fL (80.0-100.0); Mean Platelet Volume 7.7 fL (7.0-11.0); Mono # (Auto) 0.5 th/mm3 (0.0-0.9); Mono % (Auto) 6.3 % (0.0-8.0); Neut # (Auto) 6.5 th/mm3 (1.8-7.7); Neut % (Auto) 82.1 % (16.0-70.0); Platelet Count 181 th/mm3 (150-450); Red Blood Count 3.26 mil/mm3 (4.50-5.90); Red Cell Distribution Width 12.2 % (11.6-17.2); White Blood Count 7.9 th/mm3 (4.0-11.0)
[2018-07-10 04:47] LABS: Chloride 107 meq/L (98-107); Potassium 3.9 meq/L (3.5-5.1); Sodium 141 meq/L (136-145)
[2018-07-10 04:53] LABS: Platelet Estimate Normal (Normal); Platelet Morphology Normal (Normal); RBC Morphology Normal (Normal)
[2018-07-10 05:01] LABS: Anion Gap 6 meq/L (5-15); Blood Urea Nitrogen 6 mg/dL (7-18); Calcium 7.4 mg/dL (8.5-10.1); Carbon Dioxide 28.4 meq/L (21.0-32.0); Glomerular Filtration Rate Greater Than 89 mL/min (>89); Glucose,Random 114 mg/dL (74-106); Magnesium 1.9 mg/dL (1.5-2.5)
[2018-07-10 05:15] LABS: Calcium-Albumin Corrected 8.2 mg/dL (8.5-10.1); Total Protein 5.7 g/dL (6.4-8.2)
--- NOTE | 2018-07-10 09:34 | P.PNIM ---
Subjective Interval history: 32-year-old male who is seen examined today for follow-up on acute respiratory arrest secondary to anoxia, airway obstruction. Patient still unresponsive to painful stimuli. No acute events overnight. Vital signs are stable. Patient does have T-max 100.8 Physical Exam Vital signs: Vital Signs 07/09/18 10:14 07/09/18 11:00 07/09/18 12:00 Temperature 98.8 F Pulse Rate 94 H 92 H 96 H Respiratory Rate 31 H 20 22 Blood Pressure 104/66 103/65 110/70 Pulse Oximetry 95 94 L 96 07/09/18 12:43 07/09/18 13:00 07/09/18 14:00 Temperature Pulse Rate 92 H 84 Respiratory Rate 18 21 23 Blood Pressure 103/67 103/67 Pulse Oximetry 95 96 07/09/18 15:00 07/09/18 16:14 07/09/18 17:14 Temperature 99.4 F Pulse Rate 84 86 80 Respiratory Rate 23 22 22 Blood Pressure 107/70 110/69 93/59 L Pulse Oximetry 98 100 98 07/09/18 17:45 07/09/18 18:30 07/09/18 19:00 Temperature 98.4 F Pulse Rate 100 H 94 H 96 H Respiratory Rate 36 H 26 H 27 H Blood Pressure 106/48 L 97/60 L Pulse Oximetry 99 97 94 L 07/09/18 19:25 07/09/18 20:00 07/09/18 21:00 Temperature Pulse Rate 95 H 96 H 94 H Respiratory Rate 27 H 25 H 25 H Blood Pressure 100/61 96/53 L Pulse Oximetry 99 99 98 07/09/18 22:00 07/09/18 23:00 07/09/18 23:21 Temperature Pulse Rate 92 H 84 86 Respiratory Rate 27 H 19 19 Blood Pressure 96/53 L 86/60 L 95/60 L Pulse Oximetry 97 98 97 07/10/18 00:00 07/10/18 01:00 07/10/18 02:00 Temperature Pulse Rate 82 80 92 H Respiratory Rate 19 20 31 H Blood Pressure 106/63 101/58 L 112/75 Pulse Oximetry 99 98 98 07/10/18 02:37 07/10/18 03:00 07/10/18 04:00 Temperature 100.8 F H Pulse Rate 101 H 92 H 90 Respiratory Rate 28 H 30 H 25 H Blood Pressure 100/55 L 110/61 Pulse Oximetry 98 98 07/10/18 04:30 07/10/18 05:00 07/10/18 06:00 Temperature 99.8 F H Pulse Rate 90 86 82 Respiratory Rate 29 H 25 H 23 Blood Pressure 111/59 L Pulse Oximetry 97 98 97 07/10/18 07:14 07/10/18 08:14 07/10/18 09:14 Temperature Pulse Rate 80 82 88 Respiratory Rate 20 19 26 H Blood Pressure 111/62 104/56 L 104/66 Pulse Oximetry 100 97 92 L Intake & Output 07/09/18 07/10/18 07/10/18 18:59 06:59 18:59 Intake Total 1718.5 / 1718.5 1808.5 / 1808.5 Output Total 1475 / 1475 1701 / 1701 Balance 243.5 / 243.5 107.5 / 107.5 Weight 63.9 kg Intake: IV 1718.5 / 1718.5 1808.5 / 1808.5 NS Inj 1,000 ML @ 84 mls/hr IV. 1000 / 1000 1350 / 1350 CONT .[id number] VIK Rx#: [id number] Unasyn Inj 3 GM In NS Inj 100 100 / 100 200 / 200 ML @ 200 mls/hr IV.SIG Q6H VIK Rx#:[id number] Potassium Phosphate Inj 30 MMOL 260 / 260 In NS Inj 250 ML @ 42 mls/hr IV.SIG UNSCH PRN Rx#:[id number] Vancomycin Inj 850 MG In NS Inj 258.5 / 258.5 258.5 / 258.5 250 ML @ 250 mls/hr IV.SIG Q8H VIK Rx#:[id number] Rocephin Inj 1,000 MG In NS Inj 100 / 100 100 ML @ 200 mls/hr IV.SIG Q12H VIK Rx#:[id number] Oral 0 / 0 Output: Urine 625 / 625 0 / 0 Stool 1 / 1 Urine Amount (Catheter) 850 / 850 1700 / 1700 Indwelling Urethral Catheter 850 / 850 1700 / 1700 Gastric Drainage 0 / 0 Left Nare Nasogastric Tube 0 / 0 Other: Date of Last Bowel Movement 07/07/18 07/07/18 # Bowel Movements 0 Narrative: GENERAL: Well-developed, mild malnourishment, in no acute distress. Patient is arousable with painful stimuli only. Patient without any purposeful movements HEENT: Head is normocephalic without any lesions or masses noted. Eyes: Pupils are round and reactive to light. Conjunctivae were clear. NECK: Supple without any masses. Trachea midline no deviation. No JVD, CARDIAC: Regular rhythm, regular rate. S1/S2 are heard. No murmurs gallops or rubs. LUNGS: Clear to auscultation bilaterally. No wheeze, rhonchi or rales. No use of accessory muscles on inspiration or expiration. ABDOMEN: Soft, patient does not respond to palpitation indicate any pain. nondistended. Bowel sounds heard in all 4 quadrants. No organomegaly or masses. EXTREMITIES: No edema, pulses are equal bilaterally. No cyanosis or clubbing NEUROLOGY: Patient is only responsive to painful stimuli. - Urinary Catheter Management Indwelling Urethral Catheter Cath placed during this visit: yes, but has since been removed by the nurse Reason for continuing: Not indwelling catheter Insertion date: 07/07/18 Insertion time: 22:00 Removal date: 07/09/18 Removal time: 16:00 Straight Cath placed during this visit: yes Reason for continuing: Acute urinary retention Insertion date: 07/10/18 Insertion time: 08:10 Results - Labs CBC & Chem 7: 07/10/18 04:23 07/10/18 04:23 Laboratory Results - last 24 hr 07/09/18 07/09/18 07/09/18 05:40 11:53 16:21 CBC w Diff WBC RBC Hgb Hct MCV MCH MCHC RDW Plt Count MPV Neut % (Auto) Lymph % (Auto) [place] % (Auto) Eos % (Auto) Baso % (Auto) Neut # (Auto) Lymph # (Auto) [place] # (Auto) Eos # (Auto) Baso # (Auto) WBC Differential Diff Scan Differential Comment Platelet Estimate Platelet Morphology RBC Morphology Sodium Potassium Chloride Carbon Dioxide Anion Gap BUN Creatinine Estimated GFR POC Glucose 113 H 95 Random Glucose Calcium Prot Corrected Calcium Magnesium Total Protein Vitamin B12 603 07/10/18 07/10/18 04:23 04:23 CBC w Diff Slide review pending WBC 7.9 RBC 3.26 L Hgb 10.3 L Hct 30.6 L MCV 93.9 MCH 31.6 MCHC 33.7 RDW 12.2 Plt Count 181 MPV 7.7 Neut % (Auto) 82.1 H Lymph % (Auto) 8.1 L [place] % (Auto) 6.3 Eos % (Auto) 1.9 Baso % (Auto) 1.6 Neut # (Auto) 6.5 Lymph # (Auto) 0.6 L [place] # (Auto) 0.5 Eos # (Auto) 0.2 Baso # (Auto) 0.1 WBC Differential . Diff Scan Auto diff confirmed Differential Comment . Platelet Estimate Normal Platelet Morphology Normal RBC Morphology Normal Sodium 141 Potassium 3.9 Chloride 107 Carbon Dioxide 28.4 Anion Gap 6 BUN 6 L Creatinine 0.42 L Estimated GFR Greater than 89 POC Glucose Random Glucose 114 H Calcium 7.4 L* Prot Corrected Calcium 8.2 L Magnesium 1.9 Total Protein 5.7 L D Vitamin B12 Microbiology 07/06/18 19:20 Sputum - Endotracheal Gram Stain - Final 07/06/18 19:20 Sputum - Endotracheal Sputum Culture - Final Staphylococcus aureus 07/09/18 18:45 Nasal Wash Influenza Types A,B Antigen - Final Negative for FLU A and B antigen Infection due to influenza A or B cannot be ruled out since the antigen present in the sample may be below the detection limit of the test. - Procedures EEG IMPRESSION: Some diffuse delta slowing consistent with a moderate diffuse encephalopathy. Other frequencies look okay. Clinical correlation is needed. Assessment and Plan - Plan Encephalopathy, likely secondary to anoxic injury -CT of the brain was performed and was unremarkable -EEG was performed, please see above results -Neurology consulted for further recommendations and evaluation -Palliative care consultation has been requested Hypoxic respiratory arrest secondary to food obstruction/choking -Patient was initially intubated and was successfully extubated on 07/08/18 -Patient maintaining airway at this time -Continue O2 supplementation maintain O2 sats greater than 92% -Duo nebs as needed Left lung airspace consolidation -Follow-up chest x-ray show improvement -Possible aspiration versus negative pressure edema -Patient currently on vancomycin and Unasyn -Sputum culture showing staph aureus Urinary tract infection with Enterococcus faecalis -Patient currently on Unasyn -Infectious disease was consulted, and de-escalated antibiotics Urinary retention, could be secondary to previous sedation -Indwelling Weber will be replaced -Unable to give Flomax at this time due to unable to crush tablets for NG tube Electrolyte abnormalities -Continue to monitor and replete as needed -ICU electrolyte replacement protocol Nutrition -Continue tube feeding Jevity 1.5 at 55 mL's per hour -Free water flushes 100 mL's every 6 hours -Dietary consulted for tube feeding recommendations Developmental delay, seizure disorder -Home medications have been continued Prophylaxis -DVT prevention with continued Lovenox, sequential compression devices -GI protection with Prevacid SolTab 30 mg daily Discharge Planning: Awaiting neurology and palliative care consultations for further recommendations
[2018-07-10] MEDS: carBAMazepine 200 MG Tablet PO SCH ×2 (10:18→20:53)
[2018-07-10] MEDS: Senna/Docusate Sodium 8.6/50 MG Tablet PO SCH ×2 (10:18→20:53)
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
[2018-07-10] MEDS ORDERED: VANCOMYCIN TROUGH OTHER ONE (15:45)
--- NOTE | 2018-07-10 16:05 | P.PNID ---
Subjective Remarks: Still with low grade fevers Remains unresponsive Antibiotics: Vancomycin and Unasyn Lines: Peripheral line Past Medical History: Developmental delay Seizures Allergies/Adverse Reactions: Allergies bee venom protein (honey bee) Allergy (Severe, Unverified 10/18/17 14:56) lactose Allergy (Mild, Unverified 10/18/17 14:56) Objective Vital Signs 07/09/18 16:14 07/09/18 17:14 07/09/18 17:45 Temperature 99.4 F Pulse Rate 86 80 100 H Respiratory Rate 22 22 36 H Blood Pressure 110/69 93/59 L 106/48 L Pulse Oximetry 100 98 99 07/09/18 18:30 07/09/18 19:00 07/09/18 19:25 Temperature 98.4 F Pulse Rate 94 H 96 H 95 H Respiratory Rate 26 H 27 H 27 H Blood Pressure 97/60 L Pulse Oximetry 97 94 L 99 07/09/18 20:00 07/09/18 21:00 07/09/18 22:00 Temperature Pulse Rate 96 H 94 H 92 H Respiratory Rate 25 H 25 H 27 H Blood Pressure 100/61 96/53 L 96/53 L Pulse Oximetry 99 98 97 07/09/18 23:00 07/09/18 23:21 07/10/18 00:00 Temperature Pulse Rate 84 86 82 Respiratory Rate 19 19 19 Blood Pressure 86/60 L 95/60 L 106/63 Pulse Oximetry 98 97 99 07/10/18 01:00 07/10/18 02:00 07/10/18 02:37 Temperature Pulse Rate 80 92 H 101 H Respiratory Rate 20 31 H 28 H Blood Pressure 101/58 L 112/75 Pulse Oximetry 98 98 07/10/18 03:00 07/10/18 04:00 07/10/18 04:30 Temperature 100.8 F H Pulse Rate 92 H 90 90 Respiratory Rate 30 H 25 H 29 H Blood Pressure 100/55 L 110/61 Pulse Oximetry 98 98 97 07/10/18 05:00 07/10/18 06:00 07/10/18 07:14 Temperature 99.8 F H 98.5 F Pulse Rate 86 82 80 Respiratory Rate 25 H 23 20 Blood Pressure 111/59 L 111/62 Pulse Oximetry 98 97 100 07/10/18 08:00 07/10/18 08:14 07/10/18 09:10 Temperature Pulse Rate 83 82 88 Respiratory Rate 19 21 Blood Pressure 104/56 L Pulse Oximetry 97 93 L 07/10/18 09:14 07/10/18 10:14 07/10/18 11:14 Temperature Pulse Rate 88 86 90 Respiratory Rate 26 H 22 24 Blood Pressure 104/66 104/67 115/65 Pulse Oximetry 92 L 100 98 07/10/18 12:14 07/10/18 13:14 07/10/18 13:48 Temperature Pulse Rate 88 94 H Respiratory Rate 24 22 Blood Pressure 116/68 118/62 Pulse Oximetry 99 95 96 07/10/18 14:14 07/10/18 15:14 Temperature Pulse Rate 88 96 H Respiratory Rate 28 H 27 H Blood Pressure 136/74 98/54 L Pulse Oximetry 95 93 L Intake & Output 07/09/18 07/10/18 07/10/18 18:59 06:59 18:59 Intake Total 1718.5 / 1718.5 1808.5 / 1808.5 358.5 / 358.5 Output Total 1475 / 1475 1701 / 1701 950 / 950 Balance 243.5 / 243.5 107.5 / 107.5 -591.5 / -591.5 Weight 63.9 kg Intake: IV 1718.5 / 1718.5 1808.5 / 1808.5 358.5 / 358.5 NS Inj 1,000 ML @ 84 mls/hr IV. 1000 / 1000 1350 / 1350 CONT .[id number] VIK Rx#: [id number] Unasyn Inj 3 GM In NS Inj 100 100 / 100 200 / 200 100 / 100 ML @ 200 mls/hr IV.SIG Q6H VIK Rx#:[id number] Potassium Phosphate Inj 30 MMOL 260 / 260 In NS Inj 250 ML @ 42 mls/hr IV.SIG UNSCH PRN Rx#:[id number] Vancomycin Inj 850 MG In NS Inj 258.5 / 258.5 258.5 / 258.5 258.5 / 258.5 250 ML @ 250 mls/hr IV.SIG Q8H VIK Rx#:[id number] Rocephin Inj 1,000 MG In NS Inj 100 / 100 100 ML @ 200 mls/hr IV.SIG Q12H VIK Rx#:[id number] Oral 0 / 0 Output: Urine 625 / 625 0 / 0 Stool 1 / 1 Urine Amount (Catheter) 850 / 850 1700 / 1700 950 / 950 Indwelling Urethral Catheter 850 / 850 1700 / 1700 950 / 950 Gastric Drainage 0 / 0 Left Nare Nasogastric Tube 0 / 0 Other: Date of Last Bowel Movement 07/07/18 07/10/18 # Bowel Movements 0 07/09/18 15:38 Blood - Peripheral Aerobic Blood Culture - Preliminary No growth in 1 day 07/09/18 15:38 Blood - Peripheral Anaerobic Blood Culture - Preliminary No growth in 1 day 07/06/18 19:20 Sputum - Endotracheal Gram Stain - Final 07/06/18 19:20 Sputum - Endotracheal Sputum Culture - Final Staphylococcus aureus 07/09/18 18:45 Nasal Wash Influenza Types A,B Antigen - Final Negative for FLU A and B antigen Infection due to influenza A or B cannot be ruled out since the antigen present in the sample may be below the detection limit of the test. 07/06/18 14:25 Clean Catch Urine Urine Culture - Final Enterococcus faecalis Lab - Hematology Results 07/09/18 07/10/18 05:40 04:23 CBC w Diff Auto diff final Slide review pending WBC 8.4 7.9 RBC 3.65 L 3.26 L Hgb 11.4 L 10.3 L Hct 33.9 L 30.6 L MCV 93.0 93.9 MCH 31.3 31.6 MCHC 33.7 33.7 RDW 12.4 12.2 Plt Count 171 181 MPV 7.6 7.7 Neut % (Auto) 84.1 H 82.1 H Lymph % (Auto) 9.9 8.1 L Rosebud % (Auto) 5.2 6.3 Eos % (Auto) 0.4 1.9 Baso % (Auto) 0.4 1.6 Neut # (Auto) 7.2 6.5 Lymph # (Auto) 0.8 L 0.6 L [place] # (Auto) 0.4 0.5 Eos # (Auto) 0.0 0.2 Baso # (Auto) 0.0 0.1 WBC Differential . . Diff Scan Auto diff confirmed Differential Comment . . Platelet Estimate Normal Platelet Morphology Normal RBC Morphology Normal Lab - Chemistry Results 07/08/18 07/09/18 07/09/18 16:58 02:47 05:40 Sodium 140 Potassium 3.3 L Chloride 107 Carbon Dioxide 25.0 Anion Gap 8 BUN 6 L Creatinine 0.51 L Estimated GFR Greater than 89 POC Glucose 109 97 Random Glucose 110 H Calcium 7.5 L Prot Corrected Calcium Phosphorus 2.0 L Magnesium 1.8 Total Protein Vitamin B12 603 07/09/18 07/09/18 07/09/18 07:45 11:53 16:21 Sodium Potassium Chloride Carbon Dioxide Anion Gap BUN Creatinine Estimated GFR POC Glucose 101 113 H 95 Random Glucose Calcium Prot Corrected Calcium Phosphorus Magnesium Total Protein Vitamin B12 07/10/18 04:23 Sodium 141 Potassium 3.9 Chloride 107 Carbon Dioxide 28.4 Anion Gap 6 BUN 6 L Creatinine 0.42 L Estimated GFR Greater than 89 POC Glucose Random Glucose 114 H Calcium 7.4 L* Prot Corrected Calcium 8.2 L Phosphorus Magnesium 1.9 Total Protein 5.7 L D Vitamin B12 Imaging: ITS Impressions Head CT 07/06/18 12:50 CONCLUSION: Negative noncontrast head CT. . Abdomen X-Ray 07/06/18 16:47 CONCLUSION: Nasogastric tube tip is at the distal stomach. Chest X-Ray 07/08/18 04:00 CONCLUSION: Endotracheal tube and nasogastric tube in good position. Improving airspace disease on the left. Physical Exam: Constitutional thin, chronically ill appearing, obtunded- moves arm to touch - Routine HEENT Exam Head: Present: normocephalic, atraumatic. Absent: facial swelling Eye: Absent: periorbital swelling ENT: Present: mucous membranes moist, NG tube present - Routine Neck Exam Present: supple. Absent: swelling - Routine Chest/Breast/Axilla Exam Chest wall: Absent: tenderness, mass - Routine Respiratory Exam Present: decreased breath sounds, crackles. Absent: accessory muscle use - Routine Cardiovascular Exam Present: RRR, S1, S2 - Routine Abdominal Exam Present: soft, normoactive bowel sounds. Absent: tenderness, distended, rigid - Routine Extremities Exam Absent: cyanosis, edema - Routine Skin Exam Present: erythema of right hand resolved Remains unresponsive Assessment and Plan (1) Aspiration pneumonia Status: Acute Code(s): J69.0 - Pneumonitis due to inhalation of food and vomit (2) Aspiration into airway Status: Acute Code(s): T17.908A - Unspecified foreign body in respiratory tract, part unspecified causing other injury, initial encounter (3) Seizure Status: Acute Code(s): R56.9 - Unspecified convulsions - Plan 1. Reviewed cultures. Sputum with Staph aureus - MSSA. Urine culture with enterococcus 2. As sputum culture is with a MSSA - stop IV Vancomycin. 3. Continue Unasyn 3 g IV q 6hrs (2) Aspiration into airway Qualifiers: Encounter type: initial encounter Qualified Code(s): T17.908A - Unspecified foreign body in respiratory tract, part unspecified causing other injury, initial encounter
[2018-07-10] MEDS: Enoxaparin Inj 30 MG/0.3 ML Syringe SQ SCH (19:10)
[2018-07-10] MEDS: clonazePAM 0.5 MG Tablet PO SCH (20:52)
[2018-07-11] MEDS: Oral Hygiene Kit OROPHARYNG SCH ×4 (00:31→15:34)
[2018-07-11] MEDS: Ampicillin/Sulbactam Inj 3 GM in Sodium Chloride 0.9% Inj 100 ML IV.SIG SCH ×4 (03:22→21:06)
[2018-07-11] MEDS: carBAMazepine 200 MG Tablet PO SCH ×2 (08:30→21:07)
[2018-07-11] MEDS: Senna/Docusate Sodium 8.6/50 MG Tablet PO SCH ×2 (08:31→21:10)
--- NOTE | 2018-07-11 10:20 | P.PNIM ---
Subjective Interval history: Patient seen and evaluated this morning at bedside. Patient continues to be nonverbal but does not appear to be in acute distress at this time. No acute overnight events noted by nursing staff. Patient continues to be n.p.o. after evaluation. Patient continues to have NG tube in the left nare Physical Exam Vital signs: Last Vital Signs Temp 99.4 F 07/11/18 08:00 Pulse 92 H 07/11/18 09:00 Resp 27 H 07/11/18 09:00 BP 119/60 07/11/18 08:00 Pulse Ox 95 07/11/18 09:00 Intake & Output 07/09/18 07/10/18 07/11/18 07/12/18 06:59 06:59 06:59 06:59 Intake Total 3805 / 3805 3527.0 / 3527.0 1908.5 / 1908.5 100 / 100 Output Total 2170 / 2170 3176 / 3176 3475 / 3475 1700 / 1700 Balance 1635 / 1635 351.0 / 351.0 -1566.5 / -1566.5 -1600 / -1600 Weight 63.9 kg 66.5 kg Narrative: GENERAL: Well-developed, mild malnourishment, in no acute distress. HEENT: Head is normocephalic without any lesions or masses noted. Eyes: Pupils are round and reactive to light. Conjunctivae were clear. NECK: Supple without any masses. Trachea midline no deviation. No JVD, CARDIAC: Regular rhythm, regular rate. S1/S2 are heard. No murmurs gallops or rubs. LUNGS: Clear to auscultation bilaterally. No wheeze, rhonchi or rales. No use of accessory muscles on inspiration or expiration. ABDOMEN: Soft, nondistended. Bowel sounds heard in all 4 quadrants. No organomegaly or masses. EXTREMITIES: No edema, pulses are equal bilaterally. No cyanosis or clubbing NEUROLOGY: does not follow commands. no facial droop. Urinary Catheter Management Indwelling Urethral Catheter: Cath placed during this visit: yes, but has since been removed by the nurse Insertion date: 07/07/18 Insertion time: 22:00 Removal date: 07/09/18 Removal time: 16:00 Straight: Cath placed during this visit: yes Urethral indwelling: No Insertion date: 07/10/18 Insertion time: 08:10 Results Labs CBC & Chem 7: 07/10/18 04:23 07/10/18 04:23 Labs: Microbiology 07/09/18 15:38 Blood - Peripheral Aerobic Blood Culture - Preliminary No growth in 1 day 07/09/18 15:38 Blood - Peripheral Anaerobic Blood Culture - Preliminary No growth in 1 day 07/06/18 19:20 Sputum - Endotracheal Gram Stain - Final 07/06/18 19:20 Sputum - Endotracheal Sputum Culture - Final Staphylococcus aureus Procedures Procedures: EEG IMPRESSION: Some diffuse delta slowing consistent with a moderate diffuse encephalopathy. Other frequencies look okay. Clinical correlation is needed. Assessment and Plan Plan Neurology: Encephalopathy (secondary to anoxic brain injury), seizure disorder -CT of the brain: unremarkable -EEG: some diffuse delta slowing consistent with a moderate diffuse encephalopathy. -Neurology consulted previously. -Palliative care consultation reviewed. Full code. -PRESS T[employer]ER [employer] GOODS evaluation - puree w/ thin liquids - [facility]. Last progress note recommended continue speech therapy monthly, no food larger than 3/8 of an inch due to oral motor impairment. - dysphagia precautions, elevate bed level, oral motor techniques ( gum massage , lips, cheeks.) Pulmonary: Hypoxic respiratory arrest secondary to food obstruction/choking -Patient was initially intubated and was later extubated on 07/08/18 -Duo nebs as needed Infectious disease: Left lung airspace consolidation, MSSA + sputum, Entercoccus UTI -Infectious disease consulted and recommendations appreciated -Possible aspiration versus negative pressure edema -continue Unasyn 3g q6hrs ( minimum 5 day duration) Urinary retention, could be secondary to previous sedation -Indwelling Weber replaced -Unable to give Flomax at this time due to unable to crush tablets for NG tube. If tolerating diet will consider transition w/ trial of flomax Nutrition -Jevity 1.5 at 55 mL's per hour -Free water flushes 100 mL's every 6 hours -Dietary consulted for tube feeding recommendations - If tolerating PO diet will discontinue jevity and transition to oral diet. Developmental delay, seizure disorder -Home medications have been continued DVT ppx: lovenox code: FC diet: jevity. will do trial of diet
[2018-07-11] MEDS: Enoxaparin Inj 40 MG/0.4 ML Syringe SQ SCH (17:27)
[2018-07-11] MEDS: clonazePAM 0.5 MG Tablet PO SCH (21:10)
[2018-07-12] MEDS: Ampicillin/Sulbactam Inj 3 GM in Sodium Chloride 0.9% Inj 100 ML IV.SIG SCH ×4 (04:28→21:27)
[2018-07-12] MEDS: Oral Hygiene Kit OROPHARYNG SCH ×3 (04:28→16:33)
--- NOTE | 2018-07-12 07:57 | P.PNIM ---
Subjective Interval history: Patient seen and examined this morning awake but answers only simple questions with a "no" or "yeah" patient tolerated PO diet overnight as per nursing when assisted with feeding NGT will be removed this am as her ate and ariel without issue patient has macdonald catheter in replaced x 3 with urinary retention --> likely to be d/c'ed with macdonald and urology outpatient mild congestion noted. Physical Exam Vital signs: Last Vital Signs Temp 99.4 F 07/12/18 04:00 Pulse 72 07/12/18 06:00 Resp 25 H 07/12/18 06:00 BP 121/64 07/12/18 06:00 Pulse Ox 96 07/11/18 11:14 Intake & Output 07/10/18 07/11/18 07/12/18 07/13/18 06:59 06:59 06:59 06:59 Intake Total 3527.0 / 3527.0 1908.5 / 1908.5 520 / 520 Output Total 3176 / 3176 3475 / 3475 6225 / 6225 Balance 351.0 / 351.0 -1566.5 / -1566.5 -5705 / -5705 Weight 63.9 kg 66.5 kg 62.7 kg gen: nad cvs:" s1/s2 resp: mild upper airway congestion gi: soft, non tender, non distended, no guarding or rebound ext: no edema, 2 + radial pulse ( LEFT) urology: + macdonald with yellow urine Urinary Catheter Management Indwelling Urethral Catheter: Cath placed during this visit: yes, but has since been removed by the nurse Insertion date: 07/07/18 Insertion time: 22:00 Removal date: 07/09/18 Removal time: 16:00 Straight: Cath placed during this visit: yes Urethral indwelling: No Insertion date: 07/10/18 Insertion time: 08:10 Results Labs CBC & Chem 7: 07/10/18 04:23 07/10/18 04:23 Labs: Microbiology 07/09/18 15:38 Blood - Peripheral Aerobic Blood Culture - Preliminary No growth in 2 days 07/09/18 15:38 Blood - Peripheral Anaerobic Blood Culture - Preliminary No growth in 2 days Procedures Procedures: EEG IMPRESSION: Some diffuse delta slowing consistent with a moderate diffuse encephalopathy. Other frequencies look okay. Clinical correlation is needed. Assessment and Plan Plan Neurology: Encephalopathy (secondary to anoxic brain injury), seizure disorder -CT of the brain: unremarkable -EEG: some diffuse delta slowing consistent with a moderate diffuse encephalopathy. -Neurology consulted previously. -Palliative care consultation reviewed. Full code. -BASEBALL WINDER evaluation - puree w/ thin liquids - Outpatient records from [facility] reviewed. Last progress note recommended continue speech therapy monthly, no food larger than 3/8 of an inch due to oral motor impairment. - dysphagia precautions, elevate bed level, oral motor techniques ( gum massage , lips, cheeks.) -AM labs (cbc, chem 8) Pulmonary: Hypoxic respiratory arrest secondary to food obstruction/choking -Patient was initially intubated and was later extubated on 07/08/18 -Duo nebs as needed Infectious disease: Left lung airspace consolidation, MSSA + sputum, Entercoccus UTI -Infectious disease consulted and recommendations appreciated -continue Unasyn 3g q6hrs ( minimum 5 day duration) Urinary retention, could be secondary to previous sedation -Indwelling Macdonald replaced -Unable to give Flomax at this time due to unable to crush tablets for NG tube. If tolerating diet will consider transition w/ trial of flomax Nutrition -BASEBALL WINDER eval appreciated - puree w/ thin liquids. Developmental delay, seizure disorder -Home medications have been continued DVT ppx: lovenox code: FC diet: puree diet
[2018-07-12] MEDS: Senna/Docusate Sodium 8.6/50 MG Tablet PO SCH ×2 (08:17→21:27)
[2018-07-12] MEDS: carBAMazepine 200 MG Tablet PO SCH ×2 (08:17→21:26)
[2018-07-12] MEDS ORDERED: guaiFENesin 600 MG ER Tablet PO SCH (14:00)
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
[2018-07-12] MEDS: Enoxaparin Inj 40 MG/0.4 ML Syringe SQ SCH (18:26)
[2018-07-12] MEDS: clonazePAM 0.5 MG Tablet PO SCH (21:27)
[2018-07-13] MEDS: Oral Hygiene Kit OROPHARYNG SCH ×4 (04:00→17:05)
[2018-07-13] MEDS: Ampicillin/Sulbactam Inj 3 GM in Sodium Chloride 0.9% Inj 100 ML IV.SIG SCH ×2 (04:23→09:06)
[2018-07-13 08:50] LABS: Hematocrit 39.9 % (39.0-51.0); Hemoglobin 13.5 gm/dL (13.0-17.0); Mean Corpuscular HGB Conc 33.9 % (32.0-36.0); Mean Corpuscular Hemoglobin 31.7 pg (27.0-34.0); Mean Corpuscular Volume 93.5 fL (80.0-100.0); Mean Platelet Volume 7.6 fL (7.0-11.0); Platelet Count 326 th/mm3 (150-450); Red Blood Count 4.27 mil/mm3 (4.50-5.90); Red Cell Distribution Width 12.1 % (11.6-17.2); White Blood Count 8.7 th/mm3 (4.0-11.0)
[2018-07-13 08:59] LABS: Chloride 103 meq/L (98-107); Potassium 3.9 meq/L (3.5-5.1); Sodium 138 meq/L (136-145)
[2018-07-13] MEDS: carBAMazepine 200 MG Tablet PO SCH ×2 (09:09→21:46)
[2018-07-13 09:12] LABS: Anion Gap 9 meq/L (5-15); Blood Urea Nitrogen 9 mg/dL (7-18); Calcium 8.6 mg/dL (8.5-10.1); Carbon Dioxide 25.9 meq/L (21.0-32.0); Glomerular Filtration Rate Greater Than 89 mL/min (>89); Glucose,Random 97 mg/dL (74-106)
[2018-07-13 09:13] LABS: Magnesium 2.2 mg/dL (1.5-2.5)
[2018-07-13] MEDS: Senna/Docusate Sodium 8.6/50 MG Tablet PO SCH ×2 (10:11→21:47)
--- NOTE | 2018-07-13 10:55 | P.PNIM ---
Subjective Interval history: She is seen and evaluated this morning at the bedside resting comfortably in chair. Patient able to answer simple questions with yes. Patient does not appear to be in any acute distress. Patient was able to have 3 bowel movements overnight and is doing well otherwise. Bowel movements were reported to be normal caliber and not diarrhea or dark concerning for possible blood. Patient IV access is poor and will convert Unasyn over to oral regimen of Augmentin for completion of therapy for suspected pneumonia. Otherwise no acute events noted overnight. Patient is able to tolerate p.o. diet and is eating well. Patient continues to have Weber catheter inserted due to history of urinary retention with failed trial of voids. Patient is due to be evaluated by [facility] to see if they would be able to care for patient on discharge if sent back to facility. Physical Exam Vital signs: Last Vital Signs Temp 98.7 F 07/13/18 07:00 Pulse 76 07/13/18 10:42 Resp 25 H 07/13/18 10:42 BP 122/61 07/13/18 10:29 Pulse Ox 98 07/13/18 07:00 Intake & Output 07/11/18 07/12/18 07/13/18 07/14/18 06:59 06:59 06:59 06:59 Intake Total 1908.5 / 1908.5 520 / 520 1360 / 1360 100 / 100 Output Total 3475 / 3475 6225 / 6225 1850 / 1850 Balance -1566.5 / -1566.5 -5705 / -5705 -490 / -490 100 / 100 Weight 66.5 kg 62.7 kg 62.2 kg General: No acute distress, conversational. HEENT: EOMI Respiratory: Clear to auscultation Cardiovascular: S1/S2. No tachycardia. No murmur, rub, or gallop appreciated Gastrointestinal: Soft, nontender, nondistended, positive bowel sounds Extremity: No edema noted. 2+ radial pulse on left upper extremity. Capillary refill less than 2 seconds Urinary Catheter Management Indwelling Urethral Catheter: Cath placed during this visit: yes, but has since been removed by the nurse Insertion date: 07/07/18 Insertion time: 22:00 Removal date: 07/09/18 Removal time: 16:00 Straight: Cath placed during this visit: yes Urethral indwelling: No Insertion date: 07/10/18 Insertion time: 08:10 Results Labs CBC & Chem 7: 07/13/18 08:30 07/13/18 08:30 Labs: Microbiology 07/09/18 15:38 Blood - Peripheral Aerobic Blood Culture - Preliminary No growth in 3 days 07/09/18 15:38 Blood - Peripheral Anaerobic Blood Culture - Preliminary No growth in 3 days Procedures Procedures: EEG IMPRESSION: Some diffuse delta slowing consistent with a moderate diffuse encephalopathy. Other frequencies look okay. Clinical correlation is needed. Assessment and Plan Plan Neurology: Encephalopathy (secondary to anoxic brain injury), seizure disorder -CT of the brain: unremarkable -EEG: some diffuse delta slowing consistent with a moderate diffuse encephalopathy. -Neurology consulted previously. -Palliative care consultation reviewed. Full code. -POTTERY DECORATION DESIGNER evaluation - puree w/ thin liquids - [facility]. Last progress note recommended continue speech therapy monthly, no food larger than 3/8 of an inch due to oral motor impairment. - dysphagia precautions, elevate bed level, oral motor techniques ( gum massage , lips, cheeks.) -AM labs reviewed and no evidence of white blood cell count Awaiting evaluation by patient's penitentiary. Will follow up on any comments Pulmonary: Hypoxic respiratory arrest secondary to food obstruction/choking -Patient was initially intubated and was later extubated on 07/08/18 -Duo nebs as needed Infectious disease: Left lung airspace consolidation, MSSA + sputum, Entercoccus UTI -Infectious disease consulted and recommendations appreciated -Patient has lost IV access. Will convert to oral Augmentin to complete therapy from Unasyn Urinary retention, could be secondary to previous sedation -Indwelling Weber replaced -Patient with urinary retention. Likely will be discharged with Weber catheter in place and outpatient follow-up with urologist for any urodynamic studies Nutrition -POTTERY DECORATION DESIGNER farhat appreciated - puree w/ thin liquids. Developmental delay, seizure disorder -Home medications have been continued DVT ppx: lovenox code: FC diet: puree diet
[2018-07-13] MEDS: Amoxicillin/Clavulanate 875/125 MG Tablet PO SCH ×2 (11:24→21:46)
[2018-07-13] MEDS: Enoxaparin Inj 40 MG/0.4 ML Syringe SQ SCH (17:07)
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
[2018-07-13] MEDS: clonazePAM 0.5 MG Tablet PO SCH (21:45)
[2018-07-14] MEDS: Oral Hygiene Kit OROPHARYNG SCH ×5 (04:00→17:08)
--- NOTE | 2018-07-14 06:27 | P.PNNEU ---
Subjective Active Medications: Active Medications Acetaminophen (Tylenol) 650 mg PO Q6H PRN PRN Reason: TEMP>101 Last Admin: 07/10/18 17:05 Dose: 650 mg Al Hydroxide/Mg Hydroxide (Milk Of [place] Liq) 30 ml PO Q12H PRN PRN Reason: Mild Constipation Albuterol (Duoneb Neb (Prn)) 1 ampul NEB Q2HR NEB PRN PRN Reason: WHEEZING Last Admin: 07/11/18 07:57 Dose: 1 ampul Amoxicillin/Clavulanate Potassium (Augmentin 875/125 Mg) 1 tab PO Q12HR [facility] Stop: 07/16/18 10:59 Last Admin: 07/13/18 21:46 Dose: 1 tab Benztropine Mesylate (Cogentin) 2 mg PO BID [facility] Last Admin: 07/13/18 21:46 Dose: 2 mg Bisacodyl (Dulcolax Supp) 10 mg RECTAL DAILY PRN PRN Reason: SEVERE CONSITIPATION Last Admin: 07/10/18 10:18 Dose: 10 mg Carbamazepine (Tegretol) 300 mg PO BID [facility] Last Admin: 07/13/18 21:46 Dose: 300 mg Clonazepam (Klonopin) 0.5 mg PO DAILY@2100 [facility] Last Admin: 07/13/18 21:45 Dose: 0.5 mg Dextrose (D50w Vial) 50 ml IV.PUSH UNSCH PRN PRN Reason: PER HYPOGLYCEMIA PROTOCOL Enoxaparin Sodium (Lovenox Inj) 40 mg SQ Q24H [facility] Last Admin: 07/13/18 17:07 Dose: 40 mg Glucagon (Glucagon Inj) 1 mg OTHER PRN PRN PRN Reason: for Hypoglycemia Protocol Guaifenesin (Mucinex Er) 600 mg PO ONCE [facility] Stop: 07/15/18 13:59 Last Admin: 07/12/18 16:33 Dose: 600 mg Magnesium Sulfate 4 gm/ Sodium (Chloride) 100 mls @ 50 mls/hr IV.SIG UNSCH PRN PRN Reason: For Magnesium 0.9 - 1.1 mg/dL Magnesium Sulfate 2 gm/ Sodium (Chloride) 100 mls @ 50 mls/hr IV.SIG UNSCH PRN PRN Reason: For Magnesium 1.2 - 1.6 mg/dL Potassium Chloride (Kcl 40 Meq Premix Inj) 40 meq in 100 mls @ 25 mls/hr IV.SIG Q2H PRN PRN Reason: For Potassium 2.8 - 3.2 mEq/L Potassium Chloride (Kcl 20 Meq Premix Inj) 20 meq in 100 mls @ 50 mls/hr IV.SIG Q2H PRN PRN Reason: For Potassium 3.3 - 3.5 mEq/L Sodium Phosphate 30 mmol/ (Sodium Chloride) 260 mls @ 42 mls/hr IV.SIG UNSCH PRN PRN Reason: For Phosphorus < 2.5 mg/dL Potassium Chloride (Kcl 20 Meq Premix Inj) 20 meq in 100 mls @ 50 mls/hr IV.SIG Q2H PRN PRN Reason: For Potassium 3.3 - 3.5 mEq/L Potassium Chloride (Kcl 40 Meq Premix Inj) 40 meq in 100 mls @ 25 mls/hr IV.SIG UNSCH PRN PRN Reason: For Potassium 3.3 - 3.5 mEq/L Potassium Chloride (Kcl 20 Meq Premix Inj) 20 meq in 100 mls @ 50 mls/hr IV.SIG Q2H PRN PRN Reason: For Potassium 2.8 - 3.2 mEq/L Potassium Phosphate 30 mmol/ (Sodium Chloride) 260 mls @ 42 mls/hr IV.SIG UNSCH PRN PRN Reason: SEE LABEL COMMENTS Last Infusion: 07/09/18 18:55 Dose: Infused Potassium Chloride (Kcl 40 Meq Premix Inj) 40 meq in 100 mls @ 25 mls/hr IV.SIG Q2H PRN PRN Reason: For Potassium 2.8 - 3.2 mEq/L Lactulose (Lactulose Liq) 30 ml PO DAILY PRN PRN Reason: SEVERE CONSITIPATION Lansoprazole (Prevacid Solutab) 30 mg NG/OG DAILY [facility] Last Admin: 07/13/18 11:25 Dose: 30 mg Lorazepam (Ativan Inj) 2 mg IV.PUSH Q2H PRN PRN Reason: SEIZURES Magnesium Oxide (Mag-Ox) 800 mg PO UNSCH PRN PRN Reason: For Magnesium 1.2 - 1.6 mg/dL Miscellaneous Medication () 1 each OROPHARYNG 0000,0400,1200,1600 [facility] Last Admin: 07/13/18 17:05 Dose: 1 each Ondansetron HCl (Zofran Inj) 4 mg IV.PUSH Q6H PRN PRN Reason: NAUSEA OR VOMITING Potassium Bicarb/Potassium Chloride (K-Lyte Cl Eff) 50 meq PO UNSCH PRN PRN Reason: For Potassium 3.3 - 3.5 mEq/L Potassium Phosphate (K-Phos Original) 2,000 mg PO Q4H PRN PRN Reason: Phosphorus Less Than 2.5 mg/dL Potassium Phosphate (K-Phos Original) 2,000 mg PO Q4H PRN PRN Reason: Phosphorus Less Than 2.5 mg/dL Potassium Phosphate (K-Phos Original) 2,000 mg PO UNSCH PRN PRN Reason: SEE LABEL COMMENTS Senna/Docusate Sodium (Keya-Colace) 1 tab PO BID [facility] Last Admin: 07/13/18 21:47 Dose: 1 tab Sennosides (Senokot) 17.2 mg PO Q12H PRN PRN Reason: Moderate Constipation Sodium Chloride (Ns Flush) 2 ml IV.FLUSH BID [facility] Last Admin: 07/13/18 21:47 Dose: Not Given Sodium Chloride (Ns Flush) 2 ml IV.FLUSH PRN PRN PRN Reason: FLUSH AFTER USING IV ACCESS Last Admin: 07/11/18 08:31 Dose: 2 ml Allergies/Adverse Reactions: Allergies Allergy/AdvReac Type Severity Reaction Status Date / Time bee venom protein (honey bee) Allergy Severe Unverified 10/18/17 14:56 lactose Allergy Mild Unverified 10/18/17 14:56 Physical Exam Vital signs: Vital Signs 07/13/18 07:00 07/13/18 08:00 07/13/18 09:44 Temperature 98.7 F Pulse Rate 85 81 82 Respiratory Rate 24 Blood Pressure 107/70 Pulse Oximetry 98 07/13/18 09:45 07/13/18 09:46 07/13/18 09:47 Temperature Pulse Rate 80 80 80 Respiratory Rate 24 22 16 Blood Pressure Pulse Oximetry 07/13/18 09:48 07/13/18 09:49 07/13/18 09:50 Temperature Pulse Rate 82 80 82 Respiratory Rate 25 H 25 H 33 H Blood Pressure Pulse Oximetry 07/13/18 09:51 07/13/18 09:52 07/13/18 09:53 Temperature Pulse Rate 82 82 82 Respiratory Rate 27 H 27 H 27 H Blood Pressure Pulse Oximetry 07/13/18 09:54 07/13/18 09:55 07/13/18 09:56 Temperature Pulse Rate 80 80 80 Respiratory Rate 27 H 29 H 26 H Blood Pressure Pulse Oximetry 07/13/18 09:57 07/13/18 09:58 07/13/18 09:59 Temperature Pulse Rate 82 80 82 Respiratory Rate 25 H 27 H 25 H Blood Pressure Pulse Oximetry 07/13/18 10:00 07/13/18 10:01 07/13/18 10:12 Temperature Pulse Rate 84 90 90 Respiratory Rate 29 H 32 H 33 H Blood Pressure Pulse Oximetry 07/13/18 10:13 07/13/18 10:14 07/13/18 10:15 Temperature Pulse Rate 84 82 70 Respiratory Rate 28 H 25 H 25 H Blood Pressure Pulse Oximetry 07/13/18 10:16 07/13/18 10:17 07/13/18 10:18 Temperature Pulse Rate 78 78 78 Respiratory Rate 27 H 26 H 26 H Blood Pressure Pulse Oximetry 07/13/18 10:19 07/13/18 10:20 07/13/18 10:21 Temperature Pulse Rate 74 80 78 Respiratory Rate 22 28 H 24 Blood Pressure Pulse Oximetry 07/13/18 10:22 07/13/18 10:23 07/13/18 10:24 Temperature Pulse Rate 80 80 80 Respiratory Rate 26 H 23 23 Blood Pressure Pulse Oximetry 07/13/18 10:25 07/13/18 10:26 07/13/18 10:27 Temperature Pulse Rate 78 76 78 Respiratory Rate 24 25 H 27 H Blood Pressure Pulse Oximetry 07/13/18 10:28 07/13/18 10:29 07/13/18 10:30 Temperature Pulse Rate 76 76 72 Respiratory Rate 24 24 26 H Blood Pressure 122/61 Pulse Oximetry 07/13/18 10:31 07/13/18 10:32 07/13/18 10:33 Temperature Pulse Rate 76 80 78 Respiratory Rate 24 26 H 27 H Blood Pressure Pulse Oximetry 07/13/18 10:34 07/13/18 10:35 07/13/18 10:36 Temperature Pulse Rate 76 76 76 Respiratory Rate 26 H 23 26 H Blood Pressure Pulse Oximetry 07/13/18 10:37 07/13/18 10:38 07/13/18 10:39 Temperature Pulse Rate 76 76 76 Respiratory Rate 25 H 23 23 Blood Pressure Pulse Oximetry 07/13/18 10:40 07/13/18 10:41 07/13/18 10:42 Temperature Pulse Rate 78 76 76 Respiratory Rate 26 H 28 H 25 H Blood Pressure Pulse Oximetry 07/13/18 11:00 07/13/18 11:07 07/13/18 11:30 Temperature Pulse Rate 76 74 78 Respiratory Rate 20 22 23 Blood Pressure 84/61 L 93/65 L Pulse Oximetry 07/13/18 12:00 07/13/18 12:30 07/13/18 13:00 Temperature Pulse Rate 80 84 80 Respiratory Rate 18 24 21 Blood Pressure Pulse Oximetry 07/13/18 13:30 07/13/18 13:43 07/13/18 13:55 Temperature Pulse Rate 80 86 Respiratory Rate 19 19 Blood Pressure 99/60 L Pulse Oximetry 99 07/13/18 14:00 07/13/18 14:30 07/13/18 15:00 Temperature Pulse Rate 76 72 68 Respiratory Rate 22 18 18 Blood Pressure 96/62 L Pulse Oximetry 07/13/18 15:30 07/13/18 16:00 07/13/18 16:30 Temperature 98.1 F Pulse Rate 70 72 80 Respiratory Rate 23 24 17 Blood Pressure Pulse Oximetry 07/13/18 17:00 07/13/18 17:30 07/13/18 18:00 Temperature 98.1 F Pulse Rate 82 80 82 Respiratory Rate 19 24 25 H Blood Pressure Pulse Oximetry 07/13/18 18:30 07/13/18 19:00 07/13/18 20:00 Temperature 97.9 F Pulse Rate 80 66 68 Respiratory Rate 22 17 14 Blood Pressure 91/57 L 90/57 L Pulse Oximetry 95 95 07/13/18 20:26 07/13/18 22:00 07/13/18 23:00 Temperature Pulse Rate 62 70 65 Respiratory Rate 17 21 21 Blood Pressure 91/57 L 110/60 85/55 L Pulse Oximetry 95 98 94 L 07/14/18 00:00 07/14/18 01:00 07/14/18 02:00 Temperature 99.1 F Pulse Rate 55 L 56 L 50 L Respiratory Rate 16 15 14 Blood Pressure 92/55 L 92/55 L 100/64 Pulse Oximetry 99 95 95 07/14/18 03:00 07/14/18 04:00 07/14/18 05:00 Temperature 97.4 F L Pulse Rate 54 L 66 Respiratory Rate 54 H 15 22 Blood Pressure 95/59 L 85/54 L Pulse Oximetry 94 L 95 68 L 07/14/18 06:00 Temperature Pulse Rate 66 Respiratory Rate 19 Blood Pressure 91/55 L Pulse Oximetry 94 L Intake & Output 07/13/18 07/13/18 07/14/18 06:59 18:59 06:59 Intake Total 440 / 440 340 / 340 120 / 120 Output Total 550 / 550 550 / 550 1000 / 1000 Balance -110 / -110 -210 / -210 -880 / -880 Weight 62.2 kg 61.9 kg Intake: IV 200 / 200 100 / 100 Unasyn Inj 3 GM In NS Inj 100 200 / 200 100 / 100 ML @ 200 mls/hr IV.SIG Q6H VIK Rx#:[id number] Oral 240 / 240 240 / 240 120 / 120 Output: Urine Amount (Catheter) 550 / 550 550 / 550 1000 / 1000 Indwelling Urethral Catheter 550 / 550 550 / 550 1000 / 1000 Other: Date of Last Bowel Movement 07/14/18 # Bowel Movements 1 - Urinary Catheter Management Indwelling Urethral Catheter Cath placed during this visit: yes, but has since been removed by the nurse Reason for continuing: Acute urinary retention Insertion date: 07/07/18 Insertion time: 22:00 Removal date: 07/09/18 Removal time: 16:00 Straight Cath placed during this visit: yes Urethral indwelling: No Reason for continuing: Acute urinary retention Insertion date: 07/10/18 Insertion time: 08:10 Objective Laboratory Results - last 24 hr 07/13/18 07/13/18 08:30 08:30 WBC 8.7 RBC 4.27 L Hgb 13.5 Hct 39.9 MCV 93.5 MCH 31.7 MCHC 33.9 RDW 12.1 Plt Count 326 D MPV 7.6 Sodium 138 Potassium 3.9 Chloride 103 Carbon Dioxide 25.9 Anion Gap 9 BUN 9 Creatinine 0.56 L Estimated GFR Greater than 89 Random Glucose 97 Calcium 8.6 Magnesium 2.2 Microbiology 07/09/18 15:38 Aerobic Blood Culture - Preliminary Blood - Peripheral No growth in 4 days Anaerobic Blood Culture - Preliminary No growth in 4 days Review/Management - Review/Management Plan: nurse tells me yest pt up and around eating and talking as well as he usually can
[2018-07-14] MEDS: carBAMazepine 200 MG Tablet PO SCH ×2 (08:45→20:50)
[2018-07-14] MEDS: Amoxicillin/Clavulanate 875/125 MG Tablet PO SCH ×2 (08:47→20:49)
[2018-07-14] MEDS: Senna/Docusate Sodium 8.6/50 MG Tablet PO SCH ×2 (12:29→20:50)
--- NOTE | 2018-07-14 12:38 | P.PNIM ---
Subjective Interval history: Patient seen and examined no acute events ambulating and eating Neurology eval in progress currently started on flomax and macdonald in place following episodes of urinary retention -- > will monitor. Physical Exam Vital signs: Last Vital Signs Temp 97.4 F L 07/14/18 04:00 Pulse 66 07/14/18 06:00 Resp 19 07/14/18 06:00 BP 91/55 L 07/14/18 06:00 Pulse Ox 94 L 07/14/18 06:00 Intake & Output 07/12/18 07/13/18 07/14/18 07/15/18 06:59 06:59 06:59 06:59 Intake Total 520 / 520 1360 / 1360 460 / 460 Output Total 6225 / 6225 1850 / 1850 1550 / 1550 Balance -5705 / -5705 -490 / -490 -1090 / -1090 Weight 62.7 kg 62.2 kg 61.9 kg Urinary Catheter Management Indwelling Urethral Catheter: Cath placed during this visit: yes, but has since been removed by the nurse Insertion date: 07/07/18 Insertion time: 22:00 Removal date: 07/09/18 Removal time: 16:00 Straight: Cath placed during this visit: yes Urethral indwelling: No Insertion date: 07/10/18 Insertion time: 08:10 Results Labs CBC & Chem 7: 07/13/18 08:30 07/13/18 08:30 Labs: Microbiology 07/09/18 15:38 Blood - Peripheral Aerobic Blood Culture - Final No growth in 5 days 07/09/18 15:38 Blood - Peripheral Anaerobic Blood Culture - Final No growth in 5 days Procedures Procedures: EEG IMPRESSION: Some diffuse delta slowing consistent with a moderate diffuse encephalopathy. Other frequencies look okay. Clinical correlation is needed. Assessment and Plan Plan Neurology: Encephalopathy (secondary to anoxic brain injury), seizure disorder -CT of the brain: unremarkable -EEG: some diffuse delta slowing consistent with a moderate diffuse encephalopathy. -Neurology consulted previously. recommendation PENDING -Palliative care consultation reviewed. Full code. -DETAIL TECHNICIAN evaluation - puree w/ thin liquids - [facility]. Last progress note recommended continue speech therapy monthly, no food larger than 3/8 of an inch due to oral motor impairment. - dysphagia precautions, elevate bed level, oral motor techniques ( gum massage , lips, cheeks.) longterm unable to take with macdonald. will apply for nursing services for macdonald, start flomax and consider d/c macdonald in am Pulmonary: Hypoxic respiratory arrest secondary to food obstruction/choking -Patient was initially intubated and was later extubated on 07/08/18 -Duo nebs as needed Infectious disease: Left lung airspace consolidation, MSSA + sputum, Entercoccus UTI -Infectious disease consulted and recommendations appreciated -Patient has lost IV access. Will convert to oral Augmentin to complete therapy from [facility] Urinary retention, could be secondary to previous sedation -Indwelling Macdonald replaced -Patient with urinary retention. Likely will be discharged with Macdonald catheter in place and outpatient follow-up with urologist for any urodynamic studies Nutrition -DETAIL TECHNICIAN farhat appreciated - puree w/ thin liquids. Developmental delay, seizure disorder -Home medications have been continued DVT ppx: lovenox code: FC diet: puree diet
--- NOTE | 2018-07-14 12:52 | P.DCO ---
Case Management Consult Case Management Consult-Home Health: Yes I have seen patient Pablo Terry on 07/14/18. My clinical findings support the need for the requested home health care services because: Patient has experienced continued urinary retention initially due to immobilization and likely sedation effects. Trial of void had failed immediately after he wads extubated in the ICU. Patient has been started on flomax and is more ambulatory but given prior failed TOV will discharge with macdonald, flomax medication and outpatient urology follow up/. I certify that my clinical findings support that this patient is homebound because: Patient is known to have prior developmental delay which limits his ability to completely function independently outpatient.
[2018-07-14] MEDS: Enoxaparin Inj 40 MG/0.4 ML Syringe SQ SCH (17:07)
[2018-07-14] MEDS: clonazePAM 0.5 MG Tablet PO SCH (20:54)
[2018-07-15] MEDS: Oral Hygiene Kit OROPHARYNG SCH ×4 (01:10→16:22)
[2018-07-15] MEDS: Senna/Docusate Sodium 8.6/50 MG Tablet PO SCH ×2 (08:33→22:51)
[2018-07-15] MEDS: carBAMazepine 200 MG Tablet PO SCH ×2 (08:33→22:51)
[2018-07-15] MEDS: Amoxicillin/Clavulanate 875/125 MG Tablet PO SCH ×2 (08:33→22:51)
--- NOTE | 2018-07-15 09:11 | P.DS ---
DS: Providers Date of admission: 07/06/18 15:56 Primary care physician: Krishan Lane MD Consults: 07/06/18 19:32 Consult to Neurology Routine Consulting Provider: Shashank Burgess Seismograph Observer:: Shashank Burgess Reason for Consultation: Possible anoxic brain injury status post hypoxic respiratory arrest Notified:: Service Spoke with:: lyndsay Date Notified:: 07/06/18 Time Notified:: 20:08 Ordering Provider: LINDSEY 07/08/18 07:31 Consult to Hospitalist Routine Consulting Provider: Junaid Prescott Reason for Consultation: Patient status post choking episode requiring intubation. Patient is significantly developmentally delayed possible anoxic injury extubated this a.m. Notified:: Service Spoke with:: Vivek Date Notified:: 07/08/18 Time Notified:: 07:38 Ordering Provider: LINDSEY 07/08/18 14:55 Consult to Infectious Diseases Routine Consulting Provider: Bernadette Baird Reason for Consultation: TEMP OF 102.5 AND POSSIBLE ASPERATION Notified:: Service Spoke with:: DERIK Date Notified:: 07/08/18 Time Notified:: 15:09 Ordering Provider: LINDSEY 07/09/18 10:28 Consult to Palliative Care Routine Consulting Provider: Carol Reveles Reason for Consultation: Patient status post cardiac arrest, respiratory failure. Possible anoxic injury. Appreciate recommendations and obtaining goals of care Notified:: Service Spoke with:: XIANG Date Notified:: 07/09/18 Time Notified:: 10:53 Ordering Provider: CANDIDO Brief History from admission: This is a 32-year-old male delay living in a detention. The patient was eating a peanut butter and jelly sandwich and had a choking episode. A Heimlich maneuver was performed but was unsuccessful , the patient was noted to be slumped over/became limp. EMS was contacted of note the patient had a pulse per report throughout the entire episode, but CPR was initiated by 1 of the detention attendants. Upon EMS arrival which per report took approximately 10 minutes food bolus of the peanut butter and jelly sandwich was noted in the posterior pharynx which was removed by forceps and the patient was intubated at that time and transported to [facility] emergency department. The patient's medical history is significant for developmental delay, and a seizure disorder. DS: Summary Time Spent with Patient Total time spent providing and/or coordinating discharge services: > 45 min Patient was admitted to the [facility] with the following treatments and services were provided in his care. Patient was subsequently extubated in ICU and his care was continued where he was evaluated by speech- language pathology with advancement in his diet. Patient failed initial trial of void and was thought to have urinary retention in the setting of recent immobilization and sedative medication use. Patient subsequently was started on Flomax with another trial of void attempted. Patient ambulatory and after evaluation with physical therapy was deemed to be able to continue on discharge without physical therapy services at facility. Patient clinically stable for discharge. Exam Narrative Exam Narrative: General: No acute distress Cardia vascular: S1/S2. No murmurs rubs or gallops noted Respiratory: Clear to auscultation Gastrointestinal: Soft, nontender, nondistended, no guarding or rebound Urology: Does not appear to have any suprapubic tenderness based on nonverbal cues Results Procedures completed during hospitalization: EEG IMPRESSION: Some diffuse delta slowing consistent with a moderate diffuse encephalopathy. Other frequencies look okay. Clinical correlation is needed. Impressions ITS Impressions Head CT 07/06/18 12:50 CONCLUSION: Negative noncontrast head CT. . Abdomen X-Ray 07/06/18 16:47 CONCLUSION: Nasogastric tube tip is at the distal stomach. Chest X-Ray 07/08/18 04:00 CONCLUSION: Endotracheal tube and nasogastric tube in good position. Improving airspace disease on the left. Discharge Plan Discharge Disposition Patient Disposition: 04 ACLF/PRISON Discharge Condition Condition: Good Discharge Order Discharge Orders: Discharge Order (Routine); Ordered 07/13/18 Ordered By: Carmelo Morley Discharge Details Anticipated Discharge Date: 07/13/18 Discharge Comment: Patient on discharge should limit size of food to 3/8 inch with assistance to ensure he does not choke Physicians Team Primary Care Provider: Krishan Lane Attending Provider: Carmelo Morley Other Providers: Shashank Burgess ; Junaid Prescott ; Bernadette Baird ; Carol Reveles Rxs /Orders / Referrals /Forms Prescriptions: New amoxicillin-pot clavulanate 875-125 mg Tablet 1 tab PO BID 3 Days Qty: 6 RF: 0 No Action clonazepam 0.5 mg Tablet PO RF: 0 carbamazepine 100 mg Tablet,Chewable 100 mg PO TID RF: 0 benztropine 2 mg Tablet 2 mg PO BID RF: 0 Referrals: Krishan Lane MD [Primary Care Provider] - See Instructions Status ED Status: Left Department
[2018-07-15] MEDS: Enoxaparin Inj 40 MG/0.4 ML Syringe SQ SCH (17:20)
--- NOTE | 2018-07-15 20:20 | P.PNIM ---
Subjective Interval history: No acute event overnight. Patient was able to void after having Weber catheter removed. Physical Exam Vital signs: Last Vital Signs Temp 97.2 F L 07/15/18 16:00 Pulse 74 07/15/18 16:00 Resp 16 07/15/18 16:00 BP 104/58 L 07/15/18 16:00 Pulse Ox 97 07/15/18 16:00 Intake & Output 07/13/18 07/14/18 07/15/18 07/16/18 06:59 06:59 06:59 06:59 Intake Total 1360 / 1360 460 / 460 1120 / 1120 960 / 960 Output Total 1850 / 1850 1550 / 1550 1550 / 1550 400 / 400 Balance -490 / -490 -1090 / -1090 -430 / -430 560 / 560 Weight 62.2 kg 61.9 kg 60.7 kg general: No acute distress Cardiovascular: S1/S2 Respiratory: Clear to auscultation anteriorly posteriorly Gastrointestinal: Soft, nontender, nondistended, no guarding or rebound Urology: No suprapubic tenderness or fullness palpated Urinary Catheter Management Indwelling Urethral Catheter: Cath placed during this visit: yes, but has since been removed by the nurse Insertion date: 07/07/18 Insertion time: 22:00 Removal date: 07/15/18 Removal time: 09:00 Straight: Cath placed during this visit: yes, but has since been removed by the nurse Urethral indwelling: No Insertion date: 07/10/18 Insertion time: 08:10 Removal date: 07/15/18 Removal time: 09:00 Results Labs CBC & Chem 7: 07/13/18 08:30 07/13/18 08:30 Procedures Procedures: EEG IMPRESSION: Some diffuse delta slowing consistent with a moderate diffuse encephalopathy. Other frequencies look okay. Clinical correlation is needed. Assessment and Plan Plan Neurology: Encephalopathy (secondary to anoxic brain injury), seizure disorder -CT of the brain: unremarkable -EEG: some diffuse delta slowing consistent with a moderate diffuse encephalopathy. -Neurology consulted previously. -Palliative care consultation reviewed. Full code. -TAX SERVICES MANAGER evaluation - puree w/ thin liquids - Outpatient records from [facility] and [facility] reviewed. Last progress note recommended continue speech therapy monthly, no food larger than 3/8 of an inch due to oral motor impairment. - dysphagia precautions, elevate bed level, oral motor techniques ( gum massage , lips, cheeks.) Weber removed and patient was able to void successfully Pulmonary: Hypoxic respiratory arrest secondary to food obstruction/choking -Patient was initially intubated and was later extubated on 07/08/18 -Duo nebs as needed Infectious disease: Left lung airspace consolidation, MSSA + sputum, Entercoccus UTI -Infectious disease consulted and recommendations appreciated -Patient has lost IV access. Complete therapy on oral Augmentin Urinary retention, could be secondary to previous sedation Patient was able to void successfully on 07/15 Nutrition -TAX SERVICES MANAGER farhat appreciated - puree w/ thin liquids. Developmental delay, seizure disorder -Home medications have been continued DVT ppx: lovenox code: FC diet: puree diet
[2018-07-15] MEDS: clonazePAM 0.5 MG Tablet PO SCH (22:51)
[2018-07-16] MEDS: Oral Hygiene Kit OROPHARYNG SCH ×4 (00:12→16:48)
[2018-07-16] MEDS: Senna/Docusate Sodium 8.6/50 MG Tablet PO SCH ×2 (09:02→22:00)
[2018-07-16] MEDS: Amoxicillin/Clavulanate 875/125 MG Tablet PO SCH (09:03)
[2018-07-16] MEDS: carBAMazepine 200 MG Tablet PO SCH ×2 (09:03→22:00)
--- NOTE | 2018-07-16 12:53 | P.PNIM ---
Subjective Interval history: No acute events overnight. Patient urinating Physical Exam Vital signs: Last Vital Signs Temp 98.0 F 07/16/18 12:00 Pulse 58 L 07/16/18 12:00 Resp 16 07/16/18 12:00 BP 112/62 07/16/18 12:00 Pulse Ox 98 07/16/18 12:00 Intake & Output 07/14/18 07/15/18 07/16/18 07/17/18 06:59 06:59 06:59 06:59 Intake Total 460 / 460 1120 / 1120 960 / 960 Output Total 1550 / 1550 1550 / 1550 670 / 670 balance -1090 / -1090 -430 / -430 290 / 290 Weight 61.9 kg 60.7 kg 62.9 kg General: No acute distress Cardia vascular: S1/S2 Respiratory: Clear to auscultation anteriorly and posteriorly Gastrointestinal: Soft, nontender, no guarding or rebound. Positive bowel sounds Urinary Catheter Management Indwelling Urethral Catheter: Cath placed during this visit: yes, but has since been removed by the nurse Insertion date: 07/07/18 Insertion time: 22:00 Removal date: 07/15/18 Removal time: 09:00 Straight: Cath placed during this visit: yes, but has since been removed by the nurse Urethral indwelling: No Insertion date: 07/15/18 Insertion time: 23:40 Removal date: 07/15/18 Removal time: 23:50 Results Labs CBC & Chem 7: 07/13/18 08:30 07/13/18 08:30 Procedures Procedures: EEG IMPRESSION: Some diffuse delta slowing consistent with a moderate diffuse encephalopathy. Other frequencies look okay. Clinical correlation is needed. Assessment and Plan Plan Neurology: Encephalopathy (secondary to anoxic brain injury), seizure disorder -CT of the brain: unremarkable -EEG: some diffuse delta slowing consistent with a moderate diffuse encephalopathy. -Neurology consulted previously. -Palliative care consultation reviewed. Full code. -SHOE STITCHER ODD evaluation - puree w/ thin liquids - [facility] reviewed. Last progress note recommended continue speech therapy monthly, no food larger than 3/8 of an inch due to oral motor impairment. - dysphagia precautions, elevate bed level, oral motor techniques ( gum massage , lips, cheeks.) Weber removed and patient was able to void successfully Pulmonary: Hypoxic respiratory arrest secondary to food obstruction/choking -Patient was initially intubated and was later extubated on 07/08/18 Infectious disease: Left lung airspace consolidation, MSSA + sputum, Entercoccus UTI -Infectious disease consulted and recommendations appreciated -Patient has lost IV access. Completed therapy on oral Augmentin. No antibiotic on discharge Urinary retention, could be secondary to previous sedation Patient was able to void successfully on 07/15 Nutrition -SHOE STITCHER ODD eval appreciated - puree w/ thin liquids. Developmental delay, seizure disorder -Home medications have been continued. Patient to have psychotropic medications prescribed by outpatient physician DVT ppx: lovenox code: FC diet: puree diet
[2018-07-16] MEDS: Enoxaparin Inj 40 MG/0.4 ML Syringe SQ SCH (17:09)
[2018-07-16] MEDS: clonazePAM 0.5 MG Tablet PO SCH (21:59)
[2018-07-17] MEDS: Oral Hygiene Kit OROPHARYNG SCH ×2 (06:00→12:14)
[2018-07-17] MEDS: carBAMazepine 200 MG Tablet PO SCH (09:47)
[2018-07-17] MEDS: Senna/Docusate Sodium 8.6/50 MG Tablet PO SCH (09:48)
--- NOTE | 2018-07-17 10:51 | P.PNIM ---
Subjective Interval history: No acute events noted overnight Physical Exam Vital signs: Last Vital Signs Temp 94.5 F L 07/17/18 00:00 Pulse 67 07/17/18 00:00 Resp 18 07/17/18 00:00 BP 101/64 07/17/18 00:00 Pulse Ox 95 07/17/18 00:00 Intake & Output 07/15/18 07/16/18 07/17/18 07/18/18 06:59 06:59 06:59 06:59 Intake Total 1120 / 1120 960 / 960 960 / 960 Output Total 1550 / 1550 670 / 670 Balance -430 / -430 290 / 290 960 / 960 Weight 60.7 kg 62.9 kg 62.9 kg General: No acute distress resting comfortably in bed HEENT: EOMI Cardiovascular: S1/S2 respiratory: Clear to auscultation Gastrointestinal: Soft, nontender, nondistended Extremity: 2+ radial pulse right upper extremity, no calf tenderness by nonverbal cue Urinary Catheter Management Indwelling Urethral Catheter: Cath placed during this visit: yes, but has since been removed by the nurse Insertion date: 07/07/18 Insertion time: 22:00 Removal date: 07/15/18 Removal time: 09:00 Straight: Cath placed during this visit: yes, but has since been removed by the nurse Urethral indwelling: No Insertion date: 07/15/18 Insertion time: 23:40 Removal date: 07/15/18 Removal time: 23:50 Results Labs CBC & Chem 7: 07/13/18 08:30 07/13/18 08:30 Procedures Procedures: EEG IMPRESSION: Some diffuse delta slowing consistent with a moderate diffuse encephalopathy. Other frequencies look okay. Clinical correlation is needed. Assessment and Plan Plan Neurology: Encephalopathy (secondary to anoxic brain injury), seizure disorder -CT of the brain: unremarkable -EEG: some diffuse delta slowing consistent with a moderate diffuse encephalopathy. -Neurology consulted previously. -Palliative care consultation reviewed. Full code. -DRUPAL WEB DEVELOPER evaluation - puree w/ thin liquids - [facility]. Last progress note recommended continue speech therapy monthly, no food larger than 3/8 of an inch due to oral motor impairment. - dysphagia precautions, elevate bed level, oral motor techniques ( gum massage , lips, cheeks.) Awaiting placement Pulmonary: Hypoxic respiratory arrest secondary to food obstruction/choking -Patient was initially intubated and was later extubated on 07/08/18 Infectious disease: Left lung airspace consolidation, MSSA + sputum, Entercoccus UTI -Infectious disease consulted and recommendations appreciated -Patient has lost IV access. Completed therapy on oral Augmentin. No antibiotic on discharge Urinary retention, could be secondary to previous sedation Patient was able to void successfully on 07/15 Nutrition -DRUPAL WEB DEVELOPER eval appreciated - puree w/ thin liquids. Developmental delay, seizure disorder -Home medications have been continued. Patient to have psychotropic medications prescribed by outpatient physician DVT ppx: lovenox code: FC diet: puree diet Disposition: Currently awaiting placement. Facility has declined to accept patient back at this time and is waiting for written confirmation from patient' s family that they do indeed want patient to be at the facility despite verbal communication already being obtained. Case management actively working to resolve issue patient medically cleared
== END 2018-07-17 15:51 ==
LOC: PHED 12:46 → PHEDA 15:56 → PHICU 16:40 → PH3 07-15 03:11
PROVIDERS: ADMIT Internal Medicine; ATTEND Internal Medicine